=== PATIENT | female | born 1990 | race Caucasian/White ===

== ENCOUNTER 2022-01-09 11:32 | Outpatient (CLI) | payer OTHER, SELFPAY ==
[2022-01-09 15:29] LABS: SARS PCR* Negative SARS-CoV-2 (Negative)
[2022-01-11 12:21] LABS: Strep A DNA Probe* DETECTED (No Detected)
== END 2022-01-09 11:33 | disposition home or self-care (01) ==
PROVIDERS: PCP Nurse Practitioner Family; Visit Provider Nurse Practitioner Family
DX: Z20.822 Contact with and (suspected) exposure to COVID-19 (principal); R05.9 Cough, unspecified; J02.9 Acute pharyngitis, unspecified
CPT/HCPCS: 87635; 87651

== ENCOUNTER 2022-01-16 16:03 | Outpatient (CLI) | payer OTHER, SELFPAY ==
[2022-01-16 22:31] LABS: SARS PCR* Negative SARS-CoV-2 (Negative)
== END 2022-01-16 16:04 | disposition home or self-care (01) ==
LOC: KYNREF 16:03
PROVIDERS: PCP Nurse Practitioner Family; Visit Provider Nurse Practitioner Family
DX: Z20.822 Contact with and (suspected) exposure to COVID-19 (principal); R05.9 Cough, unspecified
CPT/HCPCS: 87635

== ENCOUNTER 2022-01-23 10:20 | Outpatient (CLI) | payer OTHER, SELFPAY ==
--- OUTSIDE RECORDS SUMMARY | 2022-01-23 11:04 | XMS_ITS | Encounter Summary ---
:1990 Author Organization [facility] Address [address] [place] [address] Care Team Providers Name Role Phone Elsewhere, Pcp Primary Care Provider Unavailable Encounter Details Date Type Department Care Team Description 12/05/2021 Hospital Encounter Department of Laboratory Twyla Kinney Menorrhagia Medicine in Jr. Gallagher M.D. [place] [address] [phone] (Wo rk) Social History Tobacco Use Types Packs/Day Years Used Date Smoking Tobacco: Every Day Cigarettes 0.5 Smokeless Tobacco: Never Alcohol Use Standard Drinks/Week Comments Not Currently 0 (1 standard drink = 0.6 oz pure alcoho l) Alcohol Habits Answer Date Recorded How often do you have a drink containing alcohol? Monthly or less 10/08/2019 How many drinks containing alcohol do you have on a 1 or 2 10/08/2019 typical day when you are drinking? How often do you have six or more drinks on one Never 10/08/2019 occasion? Social Isolation Answer Date Recorded In a typical week, how many times do you talk on Three times a week 10/08/2019 the phone with family, friends, or neighbors? How often do you get together with friends or Once a week 10/08/2019 relatives? How often do you attend moravian or zoroastrian 1 to 4 times per year 10/08/2019 services? Do you belong to any clubs or organizations such No 10/08/2019 as moravian groups, unions, fraternal or athletic groups, or school groups? How often do you attend meetings of the clubs or Never 10/08/2019 organizations you belong to? Are you now , , , Never 10/08/2019 , never or living with a partner? Physical Activity Answer Date Recorded On average, how many days per week do you engage in moderate to 6 days 10/08/2019 strenuous exercise (like walking fast, running, jogging, dancing, swimming, biking, or other activities that cause a light or heavy sweat)? On average, how many minutes do you engage in exercise at th is 100 min 10/08/2019 level? Stress Answer Date Recorded Do you feel stress - tense, restless, nervous, or To some ex tent 10/08/2019 anxious, or unable to sleep at night because your mind is troubled all the time - these days? Financial Resource Strain Answer Date Recorded How hard is it for you to pay for the very basics like Somew hat hard 10/08/2019 food, housing, medical care, and heating? Intimate Partner Violence Answer Date Recorded Within the last year, have you been afraid of your partner o r No 10/08/2019 ex-partner? Within the last year, have you been humiliated or emotionall y No 10/08/2019 abused in other ways by your partner or ex-partner? Within the last year, have you been kicked, hit, slapped, or No 10/08/2019 otherwise physically hurt by your partner or ex-partner? Within the last year, have you been raped or forced to have any No 10/08/2019 kind of sexual activity by your partner or ex-partner? Food Insecurity Answer Date Recorded Within the past 12 months, you worried that your food Someti mes true 10/08/2019 would run out before you got money to buy more. Within the past 12 months, the food you bought just Sometime s true 10/08/2019 didn't last and you didn't have money to get more. Transportation Needs Answer Date Recorded In the past 12 months, has lack of transportation kept you f rom Yes 10/08/2019 medical appointments or from getting medications? In the past 12 months, has lack of transportation kept you f rom Yes 10/08/2019 meetings, work, or getting things needed for daily living? Education Answer Date Recorded What is the highest level of school you have completed or 12 th grade 10/08/2019 the highest degree you have received? Sex Assigned at Date Recorded Not on file documented as of this encounter Medications at Time of Discharge Medication Sig Dispensed Refills Start Date End Date albuterol (ACCUNEB) 2.5 mg /3 Inhale 2.5 mg. 0 mL nebulizer solution albuterol inhaler Inhale 2 puffs. 0 08/02/2009 amphetamine-dextroamphetamine Take 25 mg by 0 (ADDERALL XR) 25 mg 24 hr mouth daily. capsule EPINEPHrine 0.3 mg/0.3 mL Inject 0.3 mg 0 019 injection syringe intramuscularly. famotidine (PEPCID) 20 mg Take 20 mg by 0 020 tablet mouth. ipratropium-albuteroL Inhale 3 mL. 0 04/03/2019 (DUONEB) 0.5-2.5 mg/3 mL nebulizer solution iron,carbonyl-vitamin C Take 1 tablet (65 100 tablet 3 11/29 (VITRON-C) 65 mg iron- 125 mg mg of iron total) DR tablet by mouth every other day. Do not crush or chew. LORazepam (ATIVAN) 0.5 mg Take 0.5 mg by 0 2019 tablet mouth. medroxyPROGESTERone (PROVERA) Take 1 tablet (10 14 tablet 11 11/08/2021 10 mg tabletIndications: mg total) by Menorrhagia mouth daily. Expect a period within 1 week of stopping medication. multivitamin capsule Take 1 tablet by 0 2 mouth daily. norethindrone-ethinyl Take 1 tablet by 84 tablet 4 11/30/19 22 estradiol-iron (Loestrin Fe mouth daily. 04/28, 28-Day,) 1 mg-20 mcg (21)/75 mg (7) per tablet oxyCODONE-acetaminophen Take 1 tablet by 0 2020 (PERCOCET) 5-325 mg per mouth. tablet polyethylene glycol (MIRALAX) Take 17 g by 0 10/09 17 gram/dose oral powder mouth. documented as of this encounter Miscellaneous Notes Result Encounter Note - Simón Kinney Jr., M.D. - 12/06/2021 9:52 AM CDT Jeanette, have you started the control pills and how is your bleeding? documented in this encounter Plan of Treatment Not on filedocumented as of this encounter Procedures Procedure Name Priority Date/Time Associated Diagnosis Comme nts CBC WITHOUT Routine 12/05/2021 4:35 PM Menorrhagia Results f or this DIFFERENTIAL, B CDT procedure ar e in the results section. documented in this encounter Results (ABNORMAL) CBC without Differential (12/05/2021 4:35 PM CDT) [facility] gist Method Time Signature Hemoglobin 9.7 (L) 11.6 - 12/05/2021 FB60 15.0 g/dL 4:41 PM CDT Hematocrit 31.3 (L) 35.5 - 12/05/2021 FB60 44.9 % 4:41 PM CDT Erythrocytes 3.48 (L) 3.92 - 12/05/2021 FB60 5.13 4:41 PM CDT x10(12)/L MCV 89.9 78.2 - 12/05/2021 FB60 97.9 fL 4:41 PM CDT RBC Distrib Width 14.6 12.2 - 12/05/2021 FB60 16.1 % 4:41 PM CDT Platelet Count 268 157 - 371 12/05/2021 FB60 x10(9)/L 4:41 PM CDT Leukocytes 14.2 (H) 3.4 - 9.6 12/05/2021 FB60 x10(9)/L 4:41 PM CDT Specimen Anatomical Collection Method Collection Time Receive d Time (Source) Location / / Volume Laterality Blood (Blood, 12/05/2021 4:35 PM 12/06/19 4:35 Venous) CDT PM CDT Simón Kinney Jr., M.D. LAB BLOOD ADD-ON Performing Organization Address City/State/ZIP Code Phon e Number [facility] [address] [place] [address] [facility] [place] [address] System in [address] documented in this encounter Visit Diagnoses Diagnosis Menorrhagia documented in this encounter Care Teams Utility Appraiser Relationship Specialty Start Date End Date Elsewhere, Pcp PCP - General Internal Medicine 03/17/21 documented as of this encounter
--- OUTSIDE RECORDS SUMMARY | 2022-01-23 11:04 | XMS_ITS | Clinical Summary ---
:1990 Author Organization [facility] Address [address] [place] [address] Care Team Providers Name Role Phone Elsewhere, Pcp Primary Care Provider Unavailable Source Comments Patient records contain information from all sites at [facility]. For routine questions regarding patient records, call [phone] during business hours, M-F 8:00 AM - 5:00 PM Central Time. Record requests for emergency care only can be directed to [phone] at any time.[facility] Allergies Active Allergy Reactions Severity Noted Date Comments Bee Venom Protein (Honey Other (see Medium 04/11/2021 Bee) comments) Food Extracts Rash 04/25/2006 mangos and dasha hews Sertraline Other (see 05/04/2014 comments) Spironolactone Other (see Medium 03/03/2020 Patient felt weak, comments) passed out and was [facility] Medications Medication Sig Dispensed Refills Start Date End Date Status multivitamin capsule Take 1 tablet 0 12/06/2011 Active by mouth daily. albuterol (ACCUNEB) 2.5 Inhale 2.5 mg. 0 06/26/2019 Active mg /3 mL nebulizer solution albuterol inhaler Inhale 2 0 08/02/2009 A ctive puffs. ipratropium-albuteroL Inhale 3 mL. 0 04/03/2019 Active (DUONEB) 0.5-2.5 mg/3 mL nebulizer solution amphetamine-dextroampheta Take 25 mg by 0 10/06/2019 Active mine (ADDERALL XR) 25 mg mouth daily. 24 hr capsule EPINEPHrine 0.3 mg/0.3 mL Inject 0.3 mg 0 11/06/2018 Active injection syringe intramuscularl y. famotidine (PEPCID) 20 mg Take 20 mg by 0 07/16/2019 Active tablet mouth. polyethylene glycol Take 17 g by 0 11/06/2018 Active (MIRALAX) 17 gram/dose mouth. oral powder LORazepam (ATIVAN) 0.5 mg Take 0.5 mg by 0 0 Active tablet mouth. oxyCODONE-acetaminophen Take 1 tablet 0 03/08/2021 Active (PERCOCET) 5-325 mg per by mouth. tablet medroxyPROGESTERone Take 1 tablet 14 tablet 11 11/08/2021 Active (PROVERA) 10 mg (10 mg total) tabletIndications: by mouth Menorrhagia daily. Expect a period within 1 week of stopping medication. norethindrone-ethinyl Take 1 tablet 84 tablet 4 11/29/2021 Active estradiol-iron (Loestrin by mouth Fe 04/28, 28-Day,) 1 mg-20 daily. mcg (21)/75 mg (7) per tablet iron,carbonyl-vitamin C Take 1 tablet 100 tablet 3 11/29/2021 Active (VITRON-C) 65 mg iron- (65 mg of iron [address] tablet total) by mouth every other day. Do not crush or chew. Active Problems Problem Noted Date Menorrhagia 11/08/2021 Overview: She has completed a round of Provera and has bled excessively. CBC and ferritin are pending. At this time, will start her on OCPs. Discussed the importance of quitting smoking since she is starting on O CPs. She will follow up in 1 month for a recheck. If she continues to have significant bleeding, would consider D&C at that point. If her bleeding has not improved by Sunday, she would let me know. 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 12/05/2021 Hospital Encounter Laboratory Medicine Simón Kinney Jr., M.D. 12/05/2021 Orders Only Obstetrics and Simón Kinney Gynecology Soledad Ferreira M.D. (Primary Dx) 11/29/2021 Hospital Encounter Laboratory Medicine Simón Kinney Jr., M.D. 11/29/2021 Silent Schedule Salvador and Simón Kinney Jr., M.D. 11/29/2021 Office Visit Obstetrics Simón Dickson Jr., M.D. 11/29/2021 Orders Only Obstetrics and Simón Kinney Jr., M.D. 11/08/2021 Office Visit Obstetrics and Simón Kinney Jr., M.D. from Last 3 Months Immunizations Name Administration Dates Next Due 4vHPV (discontinued) 08/09/2012, 12/12/2007 Tdap 08/09/2012 Social History Tobacco Use Types Packs/Day Years Used Date Smoking Tobacco: Every Day Cigarettes 0.5 Smokeless Tobacco: Never Tobacco Cessation: Ready to Quit: No; Co unseling Given: Yes Alcohol Use Standard Drinks/Week Comments Not Currently [...] 10/08/2019 relatives? How often do you attend holiness or yarsani 1 to 4 times per year 10/08/2019 services? 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 Respiratory Rate 16 11/29/2021 8:45 AM CDT Oxygen Saturation 97% 03/17/2021 7:15 PM BINDERY MACHINE SETTER Inhaled Oxygen Concentration - - Weight 118 kg (259 lb 0.7 oz) 11/29/2021 8:45 AM CDT Height 172.5 cm (5' 7.91) 12/06/2011 2:28 PM CDT Body Mass Index 39.49 12/06/2011 2:28 PM CDT Plan of Treatment Health Maintenance Due Date Last Done Comments Cervical Cancer Screening 1990 HIV Screening 1990 Hepatitis B Vaccines (1 of 3 - 1990 3-dose series) Hepatitis C Screening 1990 COVID-19 Vaccine (#1) 03/11/1989 Pneumococcal vaccine (0-64 years) 1994 (1 - PCV) Asthma Action Plan 10/15/2019 Asthma Control Test Questionnaire 10/15/2019 Depression Screening (Annual 04/09/2021 PHQ-2) Influenza Vaccine (#1) 2022 03/05/2007, 03/05/2007, 05/31/2006, Additional history exists DTaP,Tdap,and Td Vaccines (2 - Td 08/09/2022 08/09/2012 or Tdap) Tobacco Cessation counseling 11/29/2022 11/29/2021 Procedures Procedure Name Priority Date/Time Associated Comments Diagnosis CBC WITHOUT Routine 12/05/2021 4:35 Menorrhagia Results for DIFFERENTIAL, B PM CDT this procedu re are in the results section. FERRITIN, S Routine 11/29/2021 9:54 Menorrhagia Results for AM CDT this procedure are in the results section. CBC WITHOUT Routine 11/29/2021 9:54 Menorrhagia Results for DIFFERENTIAL, B AM CDT this procedu re are in the results section. US PELVIS RAD - Routine 11/29/2021 9:33 Menorrhagia Results for TRANSVAGINAL (most inpatients AM CDT this proced ure and all are in the outpatients) results section. from Last 3 Months Results (ABNORMAL) CBC without Differential (12/05/2021 4:35 PM CDT)Only the most recent of2 resultswithin the time period is included. Patholo gist Method Time Signature Hemoglobin 9.7 (L) [...] Laterality Blood (Blood, 12/05/2021 4:35 PM 12/06/19 22 4:35 Venous) CDT PM CDT Simón Kinney Jr., M.D. LAB BLOOD ADD-ON Performing Organization Address City/State/ZIP Code Phon e Number [facility]- [address] [place] [address] [facility] [address] [place] [address] System in [address] Ferritin (11/29/2021 9:54 AM CDT) P athologist Signature Ferritin, S 6 6 - 175 11/29/2021 [place] mcg/L 1:43 PM CDT Comment: Biotin has been identified by the rosy kendrick as a potential interfering substance. Higher concentrations of biotin may be found in multivitamins, valencia ir/nail supplements, and workout supplements. If the result d oes not match clinical observations, repeat testing af ter patient refrains from the use of supplements for at least 12 hours. Specimen Anatomical Collection Method Collection Time Receive d Time (Source) Location / / Volume Laterality Blood (Blood, 11/29/2021 9:54 AM 11/30/19 22 1:17 Venous) CDT PM CDT Simón Kinney Jr., M.D. LAB BLOOD ADD-ON Performing Organization Address City/State/ZIP Code Phon e Number [facility]- [address] [place] [address] [place] [address] System in [place] [address] US Pelvis Transvaginal (11/29/2021 9:33 AM CDT) Anatomical Region Laterality Modality Pelvis, Ultrasound RST LOS, Ultrasound ARZ LOS, Ultrasound F LA N/A Ultrasound LOS Specimen (Source) Anatomical Location Collection Method / Collectio n Time Received Time / Laterality Volume Narrative 11/29/2021 9:33 AM CDT Transvaginal ultrasound done to better visualize pelvic organs. Uterus 9.2 x 5.8 x 5.3 cm. ??Endometrium measures approximately 10-11 mm. ?? It appears to be homogeneous with some b lood flow consistent with current menstruation or possible polyp. ??Right ovary is visualized 1.7 x 1.7 x 1.4 cm. ??Left ovary not clearly seen. ??Xu metrium is normal in homogeneous. Simón Kinney Jr., M.D. IMG US PROCEDURES from Last 3 Months Insurance Payer Benefit Plan / Subscriber ID Effective Phone Address T ype Group Dates [place] [employer] [id number] 2018-Prese [address] Medicaid HMO [facility] [place] [facility] [address] [place] [address] Care Teams Lock And Dam Repairer Relationship Specialty Start Date End Date Elsewhere, Pcp PCP - General Internal Medicine 03/17/21
--- OUTSIDE RECORDS SUMMARY | 2022-01-23 11:04 | XMS_ITS | Encounter Summary ---
:1990 Author Organization [facility] Address [address] [place] [address] Care Team Providers Name Role Phone Elsewhere, Pcp Primary Care Provider Unavailable Encounter Details Date Type Department Care Team Description 12/06/2021 Clinical Communication Department of Ruchi Syed, Obstetrics and R.N. Gynecology in [address] [phone] Social History Tobacco Use Types Packs/Day Years [...] 10/08/2019 relatives? How often do you attend buddhist or hoahaoism 1 to 4 times per year 10/08/2019 services? Do you belong to any clubs or organizations such No 10/08/2019 as buddhist groups, unions, fraternal or athletic groups, or [...] on file documented as of this encounter Miscellaneous Notes Telephone Encounter - Ruchi Syed R.N. - 12/06/2021 2:40 PM CDT Patient states she will start the OCP. Patient would like a home blood pressure monitor ordered. PerDr. Kinney, patient may have iron infusion. Patient agrees to this plan and would like to proceed with iron infusion. At this time, patient does not want a D&C. Patient encouraged to stop smoking. She will make follow up appointment in one month. She was encouraged to call with any questions or concerns. Iron infusion orders signed by Dr. Kinney and faxed to [facility]. documented in this encounter Plan of Treatment Not on filedocumented as of this encounter Visit Diagnoses Diagnosis Menorrhagia - Primary documented in this encounter Care Teams Manager Analytical Relationship Specialty Start Date End Date Elsewhere, Pcp PCP - General Internal Medicine 03/17/21 documented as of this encounter
--- OUTSIDE RECORDS SUMMARY | 2022-01-23 11:05 | XMS_ITS | Encounter Summary ---
:1990 Author Organization [facility] Address [address] [place] [address] Care Team Providers Name Role Phone Elsewhere, Pcp Primary Care Provider Unavailable Reason for Visit Reason Comments Hypoglycemia Encounter Details Date Type Department Care Team Description 03/17/2021 Emergency [facility] Diego Manzo Ulysses poglycemia (Primary Emergency Department D, M.D. Dx) [address] [place] [address] [address] [place] [id number] (Wo rk) Social History Tobacco Use Types [...] 10/08/2019 relatives? How often do you attend episcopalian or restorationist 1 to 4 times per year 10/08/2019 services? Do you belong to any clubs or organizations such No 10/08/2019 as episcopalian groups, unions, fraternal or athletic groups, or [...] on file documented as of this encounter Last Filed Vital Signs Vital Sign Reading Time Taken Comments Blood Pressure 138/90 03/17/2021 7:15 PM WOOD GRAINER Pulse 88 03/17/2021 7:15 PM WOOD GRAINER Temperature 36.9 ??C (98.4 ??F) 03/17/2021 4:00 PM WOOD GRAINER Respiratory Rate 16 03/17/2021 7:15 PM WOOD GRAINER Oxygen Saturation 97% 03/17/2021 7:15 PM WOOD GRAINER Inhaled Oxygen Concentration - - Weight 118 kg (260 lb 2.3 oz) 03/17/2021 12:44 PM WOOD GRAINER Height - - Body Mass Index 39.66 12/06/2011 2:28 PM CDT documented in this encounter Discharge Instructions Discharge InstructionsDiego Manzo M.D. - 03/17/2021 7:40 PM WOOD GRAINER Patient was recommended for current symptoms to avoid taking excess sugar, recommended to reassessedwith recheck of her blood sugar on a serum a blood sample to determine blood sugar, potential treatment, and testing. GRAINER AttachmentsThe following attachments cannot be sent through Care Everywhere. Hypoglycemia (Chinese)documented in this encounter Medications at Time of Discharge Medication Sig Dispensed Refills Start Date End Date amphetamine-dextroamphetamin Take 25 mg by 0 09/08 e (ADDERALL XR) 25 mg 24 hr mouth daily. capsule albuterol (ACCUNEB) 2.5 mg Inhale 2.5 mg. 0 06/25 /3 mL nebulizer solution albuterol inhaler Inhale 2 puffs. 0 08/02/2009 EPINEPHrine 0.3 mg/0.3 mL Inject 0.3 mg 0 019 injection syringe intramuscularly. famotidine (PEPCID) 20 mg Take 20 mg by 0 020 tablet mouth. ipratropium-albuteroL Inhale 3 mL. 0 04/03/2019 (DUONEB) 0.5-2.5 mg/3 mL nebulizer solution LORazepam (ATIVAN) 0.5 mg Take 0.5 mg by 0 2019 tablet mouth. multivitamin capsule Take 1 tablet by 0 2 mouth daily. oxyCODONE-acetaminophen Take 1 tablet by 0 2020 (PERCOCET) 5-325 mg per mouth. tablet polyethylene glycol Take 17 g by 0 11/06/2018 (MIRALAX) 17 gram/dose oral mouth. powder EPINEPHrine 0.3 mg/0.3 mL Inject 0.3 mg 0 021 11/08/2021 injection syringe intramuscularly. famotidine (PEPCID) 20 mg 0 07/16/2019 11/08/2021 tablet HYDROcodone-acetaminophen 0 07/29/2019 11/08/2021 (NORCO) 5-325 mg per tablet medroxyPROGESTERone Take 1 tablet 14 tablet 3 10/15/2019 (PROVERA) 10 mg tablet (10 mg total) by mouth daily. You should have period within 2 weeks of finishing. Start control with 2nd day of period. norethindrone-ethinyl Take 1 tablet by 84 tablet 4 10/15/19 20 11/08/2021 estradiol-iron (Loestrin Fe mouth daily. 04/28, 28-Day,) 1 mg-20 mcg (21)/75 mg (7) per tablet spironolactone (ALDACTONE) Take 1 tablet 180 tablet 3 201911/08/2021 50 mg tablet (50 mg total) by mouth 2 (two) times a day. documented as of this encounter ED Notes Diego Manzo M.D. - 03/17/2021 4:30 PM CST SUBJECTIVE CHIEF COMPLAINT/REASON FOR VISIT Hypoglycemia HISTORY OF PRESENT ILLNESS Jeanette Marcelo is a 30 y.o. female presents to the emergency department for evaluation of persistent hypoglycemia. Past medical history significant for ulcerative colitis. Patient believes theonset of her symptoms may have started approximately 1 year ago, but significantly worsening over the past several weeks. Patient describes feeling fatigued, tired, question depression. Within the pastweek she had a random blood sugar check from 1 of her mother's glue, others, had low blood sugar, was seen in the outpatient clinic. Patient diagnosed with hypoglycemia without history of diabetes, wasstarted on outpatient workup for insulinoma versus alternative cause. Patient was given a prescription for glucose tablets to using, reports yesterday evening had a difficult time maintaining a blood sugar above 70 all night long and therefore did not sleep well. Scheduled for outpatient Endocrinologyon the through , given worsening symptoms was advised to seek emergent evaluation. Patient had CT abdomen schedule for today, given her symptoms presenting to the emergency department for alternative workup and management. Denies any fevers or chills, reports diarrhea but history of Crohn's disease. 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 HENT: Negative for sore throat. Eyes: Negative for visual disturbance. Respiratory: Negative for cough. Cardiovascular: Negative for leg swelling. Gastrointestinal: Negative for vomiting. Endocrine: Positive for low blood sugars. Genitourinary: Negative for dysuria. Skin: Negative for rash. Neurological: Positive for tremors. Negative for headaches. Hematological: Does not bruise/bleed easily. ALLERGIES/MEDICATIONS: Reviewed in medical record. MEDICAL HISTORY History reviewed. No pertinent past medical history. Patient Active Problem List Diagnosis Date Noted ??? Ulcerative Colitis Unspecified Without Complications ([facility]) 10/15/2019 ??? Polycystic Ovary Syndrome 10/15/2019 ??? 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 Administrative Purpose Exam 06/05/2014 ??? Asthma ([facility]) 04/25/2006 SURGICAL HISTORY History reviewed. No pertinent surgical history. FAMILY HISTORY Reviewed in chart SOCIAL HISTORY Social History Socioeconomic History ??? Marital status: Single Spouse name: None ??? Number of children: None ??? Years of education: None ??? Highest education level: 12th grade Occupational History ??? None Tobacco Use ??? Smoking status: Current Every Day Smoker Packs/day: 0.50 Types: Cigarettes ??? Smokeless tobacco: Never Used Vaping Use ??? Vaping Use: never used Substance and Sexual Activity ??? Alcohol use: Not Currently ??? Drug use: Never ??? Sexual activity: Defer Other Topics Concern ??? None Social History Narrative ??? None Social Determinants of Health Financial Resource Strain: Not on file Food Insecurity: Not on file Transportation Needs: Not on file Physical Activity: Not on file Stress: Not on file Social Connections: Not on file Intimate Partner Violence: Not on file Housing Stability: Not on file Social History Substance and Sexual Activity Alcohol Use Not Currently Social History Substance and Sexual Activity Drug Use Never OBJECTIVE INITIAL VITAL SIGNS Initial Vitals Temperature Pulse Rate Heart Rate Resp Rate Blood Pressure SpO2 03/17/21 1253 03/17/21 1253 -- 03/17/21 1253 03/17/21 1253 03/17/21 1253 36.8 ??C 93 16 (!) 168/90 99 % Pain Score 03/17/21 1252 6 PHYSICAL EXAMINATION Constitutional: She appears not lethargic. No distress. HENT: Nose: No nasal discharge. Mouth/Throat: Mucous membranes are moist. Eyes: Conjunctivae are normal. Right eye exhibits no discharge. Left eye exhibits no discharge. Cardiovascular: Edema: no edema noted Pulmonary/Chest: Effort normal. Abdominal: exhibits no distension. Musculoskeletal: General: No deformity. Normal range of motion. Neurological: Alert and oriented to person, place, and time. Skin: No rash noted. She is not diaphoretic. No cyanosis. No jaundice. Psychiatric: She has a normal mood and affect. ED COURSE ED Course as of 03/17/212115 [facility] Mar 17, [id number] CT scan negative for evidence of acute islet cell tumor. Patient denies any recurrent symptoms of hypoglycemia. We have paged endocrinology, disposition pending consultation. 1930 Discussed the case with the on-call electrical and instrument technician 1936 Recommendation should the patient return to the emergency department is for repeat venous bloodglucose, separate from a point of care test. If patient has blood sugar less than 55 recommendation for: If serum glucose is low (=55 mg/dL), other tests from the same blood sample should be done, including: ??C-peptide ??Insulin ??proinsulin ??Beta-hydroxybutyrate ??Serum screen for hypoglycemic agents (sulfonylurea and meglitinides) Final Diagnoses: as of 03/17/212115 Hypoglycemia INTERVENTIONS Medications NaCl 0.9% infusion (0 mL/hr intravenous Stopped 03/17/211940) iohexoL 300 mg iodine/mL solution 1-200 mL (OMNIPAQUE) (200 mL intravenous Given 03/17/211832) sodium chloride (PF) 0.9 % injection 1-100 mL (50 mL intravenous Given 03/17/211832) iohexoL 300 mg iodine/mL solution 1-200 mL (OMNIPAQUE) (140 mL intravenous Given 03/17/211850) sodium chloride (PF) 0.9 % injection 1-100 mL (50 mL intravenous Given 03/17/211849) LABS Labs Reviewed CBC WITH DIFFERENTIAL, B - Abnormal Result Value Hemoglobin 14.3 Hematocrit 43.7 Erythrocytes 4.62 MCV 94.6 RBC Distrib Width 12.7 Platelet Count 206 Leukocytes 9.6 Neutrophils 6.82 (*) Lymphocytes 1.81 Monocytes 0.80 Eosinophils 0.16 Basophils 0.04 BASIC METABOLIC PANEL, S/P Potassium, P 4.2 Sodium, P 140 Chloride, P 104 Bicarbonate, P 27 Anion Gap, P 9 BUN (Blood Urea Nitrogen), P 8 Creatinine, P 0.61 eGFR-Black/ >90 eGFR Non-Black/ >90 Calcium, Total, P 9.3 Glucose, P 91 LACTATE, B/P Lactate, P 1.8 HEMOGLOBIN A1C, B Hemoglobin A1c, B 5.4 TEST, U Test, Urine Negative GLUCOSE POCT, B Glucose, POCT, B Collected GLUCOSE POCT, B Glucose, POCT, B 97 Site Venstick GLUCOSE POCT, B Glucose, POCT, B Collected GLUCOSE POCT, B Glucose, POCT, B Collected GLUCOSE POCT, B Glucose, POCT, B Collected GLUCOSE POCT, B Glucose, POCT, B 85 Site Capillary GLUCOSE POCT, B Glucose, POCT, B 91 Site Capillary GLUCOSE POCT, B Glucose, POCT, B 83 Site Capillary GLUCOSE POCT, B GLUCOSE POCT, B GLUCOSE POCT, B GLUCOSE POCT, B GLUCOSE POCT, B ECG RADIOLOGY CT Abdomen Pelvis with IV Contrast Final Result 1. No focal pancreatic mass to suggest etiology for patient's recurrent hypoglycemia. 2. Cystic lesions within both ovaries may represent multiple follicles. Consider pelvic ultrasound for further evaluation, if clinically indicated. ASSESSMENT / PLAN ASSESSMENT/PLAN IMPRESSION AND PLAN Jeanette Marcelo is a 30 y.o. female presents with concern of persistent hypoglycemia. On arrival patient had initial blood sugar of 91. We have not seen any evidence of hypoglycemia at this time, she has been taking oral glucose tablets since arrival to the waiting room. Studies have been obtained, no acute abnormalities, lactate is normal, A1c 5.4. Will recheck blood sugar in the emergency department every 1 hour. We will obtain the CT abdomen andpelvis as was ordered in the outpatient setting. Consideration for endocrinology consultation if thepatient has persistent hypoglycemic events while in the emergency department for definitive recommend ation and disposition planning. Please follow ED course. Patient otherwise well. Discharge home. DIFFERENTIAL DIAGNOSIS Anemia generalized weakness, tremor, hypoglycemia, diabetes, medication complication, nondiabetic hypoglycemia I reviewed previous medical records including lab results, radiology images/report and documentationfrom previous visits. I personally reviewed the lab result(s) and my interpretation is normal. I reviewed the radiology report(s). The Radiology exam interpretation(s) is/are normal. DIAGNOSIS Final diagnoses: [E16.2] Hypoglycemia ED DISCHARGE MEDS ED Prescriptions None DISPOSITION Home or Self Jail or Self Care Diego Manzo M.D. 03/17/212116 GRAINER Marina Sterling R.N. - 03/17/2021 1:55 PM CST Patient came to triage desk stating that she was going outside to get some glucose tablets from her neighbor because we were just letting her sit out here with a blood sugar of 51. Patient was offered a blood sugar recheck (previous check 1hr prior was 91), however patient walked out of ED while holding a soda. Marina Sterling RKentonN. 03/17/21 1407 GRAINER Estee Duncan R.N. - 03/17/2021 12:52 PM CST Here for new hypoglycemia for past week, this am was 52, now states up to 101 Estee Duncan R.N. 03/17/21 1253 GRAINER documented in this encounter Plan of Treatment Not on filedocumented as of this encounter Procedures Procedure Name Priority Date/Time Associated Comments Diagnosis GLUCOSE POCT, B Routine 03/17/2021 7:21 Results f or this PM WOOD GRAINER procedure are i n the results section. GLUCOSE POCT, B Timed 03/17/2021 7:21 Results f or this PM WOOD GRAINER procedure are i n the results section. CT ABDOMEN PELVIS RAD - Semiurgent 03/17/2021 6:57 Res ults for this WITH IV CONTRAST (Fast; most ED PM WOOD GRAINER procedure are in patients; some the results inpatients) section. GLUCOSE POCT, B Routine 03/17/2021 6:06 Results f or this PM WOOD GRAINER procedure are i n the results section. GLUCOSE POCT, B Timed 03/17/2021 6:06 Results f or this PM WOOD GRAINER procedure are i n the results section. GLUCOSE POCT, B Timed 03/17/2021 5:19 Results f or this PM WOOD GRAINER procedure are i n the results section. GLUCOSE POCT, B Routine 03/17/2021 5:18 Results f or this PM WOOD GRAINER procedure are i n the results section. TEST, U STAT 03/17/2021 4:32 Results for this PM WOOD GRAINER procedure are i n the results section. GLUCOSE POCT, B STAT 03/17/2021 4:10 Results f or this PM WOOD GRAINER procedure are i n the results section. GLUCOSE POCT, B Routine 03/17/2021 4:04 Results f or this PM WOOD GRAINER procedure are i n the results section. CBC WITH STAT 03/17/2021 1:16 Results for this DIFFERENTIAL, B PM WOOD GRAINER procedure ar e in the results section. LACTATE, B/P STAT 03/17/2021 1:16 Results for this PM WOOD GRAINER procedure are i n the results section. HEMOGLOBIN A1C, B STAT 03/17/2021 1:16 Results for this PM WOOD GRAINER procedure are i n the results section. BASIC METABOLIC STAT 03/17/2021 1:16 Results f or this PANEL, S/P PM WOOD GRAINER procedure are i n the results section. documented in this encounter Results Glucose, POCT (03/17/2021 7:21 PM WOOD GRAINER) Analysis Performed At Patho logist Time Signature Glucose, POCT, 83 70 - 140 03/17/2021 [facility] B mg/dL 7:24 PM WOOD GRAINER Site Capillary 03/17/2021 PCL[facility] 7:24 PM WOOD GRAINER Specimen Anatomical Collection Method Collection Time Receive d Time (Source) Location / / Volume Laterality Blood 03/17/2021 7:21 PM 7:25 WOOD GRAINER PM WOOD GRAINER Unknown Provider LAB POCT ORDERABLES-MANUAL Performing Organization Address City/State/ZIP Code Phon e Number POC [facility] [address] [place] [address] [facility] [place] [address] [facility] [address] [facility] Glucose, POCT (03/17/2021 7:21 PM WOOD GRAINER) Analysis Performed At Patho logist Time Signature Glucose, POCT, Collected DEFAULT 03/17/2021 SML[facility] B 7:21 PM WOOD GRAINER Specimen Anatomical Collection Method Collection Time Receive d Time (Source) Location / / Volume Laterality Blood (Blood, 03/17/2021 7:21 PM 03/17/20 7:21 Capillary) WOOD GRAINER PM WOOD GRAINER Diego Manzo M.D. LAB POCT ORDERABLES-MANUAL Performing Organization Address [facility]/ZIP [facility] Phon e Number [facility] - [address] [place], [place] [address] [facility] [place] [address] [facility] [address] Abdomen Pelvis with IV Contrast (03/17/2021 6:57 PM WOOD GRAINER) Anatomical Region Laterality Modality Abdomen, Pelvis, Abdominal RST LOS, N/A Comp uted Tomography, Computed Abdominal ARZ LOS, Abdominal FLA LOS Suhas ography Specimen (Source) Anatomical Collection Method Collection Time Re ceived Time Location / / Volume Laterality 03/17/2021 6:34 PM WOOD GRAINER Impressions 03/17/2021 7:03 PM WOOD GRAINER 1. No focal pancreatic mass to suggest etiology for patient's recurrent hypoglycemia. 2. Cystic lesions within both ovaries ma y represent multiple follicles. Consider pelvic ultrasound for further evaluation , if clinically indicated. Narrative 03/17/2021 7:03 PM WOOD GRAINER EXAM: ??CT ABDOMEN PELVIS WITH IV CONTRAST COMPARISON: ??None FINDINGS: ??Of note, initial images did not include a pancreatic phase, which would be helpful for workup of potential neuroendocrine neoplasm given clinical concern for pancreatic islet cell tumor. Findings were discussed with Dr. Diego Cisneros MD (pager [phone]) and it was agreed to re-inject to perform this phase of imaging. No evidence of focal pancreatic mass. Sp ecifically, no evidence of hyperenhancing mass to suggest neuroendo crine neoplasm. The liver, gallbladder, adrenals, and ki dneys are normal. Physiologic appearance of the uterus. Nabothian cysts. Cystic l esions within both ovaries may represent multiple follicles. Normal caliber small and large bowel. Negative appendix. No abdominal lymphadenopathy or free fluid. Degenerative change of lumbar spine and right SI joint. Transitional left lumbos acral vertebra. No osseous lesions. Procedure Note Bold, Vic Johnson M.D. - 03/17/2021Format ting of this note might be different from the original. EXAM: CT ABDOMEN PELVIS WITH IV CONTRAST COMPARISON: None FINDINGS: Of note, initial images did no t include a pancreatic phase, which would be helpful for workup of potential neuroendocrine neoplasm given clinical concern for pancreatic islet cell tumor. Findings were discussed with Dr. Diego Cisneros MD (pager [phone]) and it was agreed to re-inject to perform this phase of imaging. No evidence of focal pancreatic mass. Sp ecifically, no evidence of hyperenhancing mass to suggest neuroendo crine neoplasm. The liver, gallbladder, adrenals, and ki dneys are normal. Physiologic appearance of the uterus. Nabothian cysts. Cystic l esions within both ovaries may represent multiple follicles. Normal caliber small and large bowel. Negative appendix. No abdominal lymphadenopathy or free fluid. Degenerative change of lumbar spine and right SI joint. Transitional left lumbos acral vertebra. No osseous lesions. IMPRESSION: 1. No focal pancreatic mass to suggest e tiology for patient's recurrent hypoglycemia. 2. Cystic lesions within both ovaries ma y represent multiple follicles. Consider pelvic ultrasound for further evaluation , if clinically indicated. Diego Manzo M.D. IMG CT PROCEDURES Glucose, POCT (03/17/2021 6:06 PM WOOD GRAINER) Analysis Performed At Patho logist Time Signature Glucose, POCT, 91 70 - 140 03/17/2021 PCL[facility] B mg/dL 6:17 PM WOOD GRAINER Site Capillary 03/17/2021 PCL[facility] 6:17 PM WOOD GRAINER Specimen Anatomical Collection Method Collection Time Receive d Time (Source) Location / / Volume Laterality Blood 03/17/2021 6:06 PM 6:17 WOOD GRAINER PM WOOD GRAINER Unknown Provider LAB POCT ORDERABLES-MANUAL Performing Organization Address City/State/ZIP Code Phon e Number POC [facility] [address] [place] [address] [place] [address] [facility] [address] [facility] Glucose, POCT (03/17/2021 6:06 PM WOOD GRAINER) Analysis Performed At Patho logist Time Signature Glucose, POCT, Collected DEFAULT 03/17/2021 SMLX B 6:06 PM WOOD GRAINER Specimen Anatomical Collection Method Collection Time Receive d Time (Source) Location / / Volume Laterality Blood (Blood, 03/17/2021 6:06 PM 03/17/20 6:06 Capillary) WOOD GRAINER PM WOOD GRAINER Diego Manzo M.D. LAB POCT ORDERABLES-MANUAL Performing Organization Address City/[facility] Code Phon e Number [facility] - [address] [place], [place] [address] [facility] [place] [address] [facility] [address] [facility] Glucose, POCT (03/17/2021 5:19 PM WOOD GRAINER) Analysis Performed At [facility] Signature Glucose, POCT, Collected DEFAULT 03/17/2021 SMLX B 5:19 PM WOOD GRAINER Specimen Anatomical Collection Method Collection Time Receive d Time (Source) Location / / Volume Laterality Blood (Blood, 03/17/2021 5:19 PM 03/17/20 5:19 Capillary) WOOD GRAINER PM WOOD GRAINER Diego Manzo M.D. LAB POCT ORDERABLES-MANUAL Performing Organization Address City/State/[facility] Code Phon e Number [facility] - [address] [place], [place] [address] [place] [address] [facility] [address] [facility] Glucose, POCT (03/17/2021 5:18 PM WOOD GRAINER) Analysis Performed At Patho logist Time Signature Glucose, POCT, 85 70 - 140 03/17/2021 PCL[facility] B mg/dL 5:21 PM WOOD GRAINER Site Capillary 03/17/2021 PCLX 5:21 PM WOOD GRAINER Specimen Anatomical Collection Method Collection Time Receive d Time (Source) Location / / Volume Laterality Blood 03/17/2021 5:18 PM 5:21 WOOD GRAINER PM WOOD GRAINER Unknown Provider LAB POCT ORDERABLES-MANUAL Performing Organization Address City/[facility]/ZIP Code Phon e Number POC [facility] [address] [place] [address] [facility] [place] [address] [facility] [address] [facility] Test, Qualitative, Urine (03/17/2021 4:32 PM WOOD GRAINER) athologist Signature Negative 03/17/2021 [facility] Test, Urine 5:47 PM WOOD GRAINER Specimen Anatomical Collection Method Collection Time Receive d Time (Source) Location / / Volume Laterality Urine (Urine, 03/17/2021 4:32 PM 03/17/20 5:09 Midstream) WOOD GRAINER PM WOOD GRAINER Diego Manzo M.D. LAB URINE ORDERABLES Performing Organization Address City/[facility]/ZIP Code Phon e Number [facility] - [address] [place], [place] [address] [facility] [place] [address] [facility] [address] [facility] Glucose, POCT (03/17/2021 4:10 PM WOOD GRAINER) Analysis Performed At Located Within [facility] logist Time Signature Glucose, POCT, Collected DEFAULT 03/17/2021 SMLX B 4:10 PM WOOD GRAINER Specimen Anatomical Collection Method Collection Time Receive d Time (Source) Location / / Volume Laterality Blood (Blood, 03/17/2021 4:10 PM 03/17/20 21 4:10 Capillary) WOOD GRAINER PM WOOD GRAINER Diego Manzo M.D. LAB POCT ORDERABLES-MANUAL Performing Organization Address City/[facility]/ZIP [facility] Phon e Number [facility] - [address] [place], [place] [address] [facility] [place] [address] [facility] [address] [facility] Glucose, POCT (03/17/2021 4:04 PM WOOD GRAINER) athologist Signature Glucose, POCT, 97 70 - 140 03/17/2021 PCL[facility] B mg/dL 4:13 PM WOOD GRAINER Site Venstick 03/17/2021 PCL[facility] 4:13 PM WOOD GRAINER Specimen Anatomical Collection Method Collection Time Receive d Time (Source) Location / / Volume Laterality Blood 03/17/2021 4:04 PM 4:13 WOOD GRAINER PM WOOD GRAINER Unknown Provider LAB POCT ORDERABLES-MANUAL Performing Organization Address City/[facility]/ZIP [facility] Phon e Number POC [facility] [address] [place] [address] [place] [address] [facility] [address] [facility] Hemoglobin A1c (03/17/2021 1:16 PM WOOD GRAINER) athologist [facility] Hemoglobin A1c, 5.4 4.0 - 5.6 03/17/2021 [facility] B % 1:39 PM WOOD GRAINER Specimen Anatomical Collection Method Collection Time Receive d Time (Source) Location / / Volume Laterality Blood (Blood, 03/17/2021 1:16 PM 03/17/20 1:30 Venous) WOOD GRAINER PM WOOD GRAINER Xavi Jc M.D. LAB BLOOD ADD-ON Performing Organization Address City/[facility] Phon e Number [facility] - [address] [place], [place] [address] [facility] [place] [address] [facility] [address] [facility] Lactate (03/17/2021 1:16 PM WOOD GRAINER) athologist [facility] Lactate, P 1.8 0.5 - 2.2 03/17/2021 [facility] mmol/L 1:40 PM WOOD GRAINER Specimen Anatomical Collection Method Collection Time Receive d Time (Source) Location / / Volume Laterality Blood (Blood, 03/17/2021 1:16 PM 03/17/20 1:24 Venous) WOOD GRAINER PM WOOD GRAINER Xavi Jc M.D. LAB BLOOD NON ADD-ON Performing Organization Address City/[facility] Phon e Number [facility] - [address] [place], [place] [address] [facility] [place] [address] [facility] 200 [facility] Basic Metabolic Panel (03/17/2021 1:16 PM WOOD GRAINER) athologist [facility] Potassium, P 4.2 3.6 - 5.2 03/17/2021 [facility] mmol/L 1:43 PM WOOD GRAINER Sodium, P 140 135 - 145 03/17/2021 [facility] mmol/L 1:43 PM WOOD GRAINER Chloride, P 104 98 - 107 03/17/2021 [facility] mmol/L 1:43 PM WOOD GRAINER Bicarbonate, P 27 22 - 29 03/17/2021 [facility] mmol/L 1:43 PM WOOD GRAINER Anion Gap, P 9 7 - 15 03/17/2021 [facility] 1:43 PM WOOD GRAINER BUN (Blood Urea 8 6 - 21 03/17/2021 [facility] Nitrogen), P mg/dL 1:43 PM WOOD GRAINER Creatinine 0.61 0.59 - 03/17/2021 [facility] 1.04 mg/dL 1:43 PM WOOD GRAINER eGFR-Black/Afric >90 >=60 03/17/2021 [facility] an Dominican mL/min/BSA 1:43 PM WOOD GRAINER Comment: ----ADDITIONAL INFORMATION---- Estimated GFR calculated using the 2009 CKD_EPI creatinine equation. eGFR Non-Black/ >90 >=60 mL/min/BSA 03/17/2021 1:43 PM WOOD GRAINER [facility] Comment: ----ADDITIONAL INFORMATION---- Estimated GFR calculated using the 2009 CKD_EPI creatinine equation. Calcium, Total, P 9.3 8.6 - 10.0 mg/dL 03/17/2021 1:43 PM WOOD GRAINER [facility] Glucose, P 91 70 - 140 mg/dL 03/17/2021 1:43 PM WOOD GRAINER S TMA Specimen Anatomical Collection Method Collection Time Receive d Time (Source) Location / / Volume Laterality Blood (Blood, 03/17/2021 1:16 PM 03/17/20 1:24 Venous) WOOD GRAINER PM WOOD GRAINER Xavi Jc M.D. LAB BLOOD ADD-ON Performing Organization Address City/State/ZIP Code Phon e Number [facility] - [address] [place] [address] [place] [address] [facility] [address] [facility] (ABNORMAL) CBC with Differential, Blood (03/17/2021 1:16 PM WOOD GRAINER) [facility] gist Method Time Signature Hemoglobin 14.3 11.6 - 03/17/2021 [facility] 15.0 g/dL 1:28 PM WOOD GRAINER Hematocrit 43.7 35.5 - 03/17/2021 [facility] 44.9 % 1:28 PM WOOD GRAINER Erythrocytes 4.62 3.92 - 03/17/2021 [facility] 5.13 1:28 PM WOOD GRAINER x10(12)/L MCV 94.6 78.2 - 03/17/2021 [facility] 97.9 fL 1:28 PM WOOD GRAINER RBC Distrib Width 12.7 12.2 - 03/17/2021 [facility] 16.1 % 1:28 PM WOOD GRAINER Platelet Count 206 157 - 371 03/17/2021 [facility] x10(9)/L 1:28 PM WOOD GRAINER Leukocytes 9.6 3.4 - 9.6 03/17/2021 [facility] x10(9)/L 1:28 PM WOOD GRAINER Neutrophils 6.82 (H) 1.56 - 03/17/2021 [facility] 6.45 1:28 PM WOOD GRAINER x10(9)/L Lymphocytes 1.81 0.95 - 03/17/2021 [facility] 3.07 1:28 PM WOOD GRAINER x10(9)/L Monocytes 0.80 0.26 - 03/17/2021 [facility] 0.81 1:28 PM WOOD GRAINER x10(9)/L Eosinophils 0.16 0.03 - 03/17/2021 [facility] 0.48 1:28 PM WOOD GRAINER x10(9)/L Basophils 0.04 0.01 - 03/17/2021 [facility] 0.08 1:28 PM WOOD GRAINER x10(9)/L Specimen Anatomical Collection Method Collection Time Receive d Time (Source) Location / / Volume Laterality Blood (Blood, 03/17/2021 1:16 PM 03/17/20 1:24 Venous) WOOD GRAINER PM WOOD GRAINER Xavi Jc M.D. LAB BLOOD ADD-ON Performing Organization Address City/State/ZIP Code Phon e Number [facility] - [facility] [address] [place], [place] [address] [place] [address] [facility] [address] documented in this encounter Visit Diagnoses Diagnosis Hypoglycemia - Primary documented in this encounter Administered Medications Inactive Administered Medications - up to 3 most recent administrations Medication Order MAR Action Action Date Dose Rate Site iohexoL 300 mg iodine/mL solution Given 03/17/2021 6:33 PM WOOD GRAINER 2 00 mL 1-200 mL (OMNIPAQUE) 1-200 mL, intravenous, Once in imaging, contrast, Starting on Kelli 03/17/21 at 1832, For 1 dose, Imaging Protocol Orders, Dose per Radiant Medication Guidelines iohexoL 300 mg iodine/mL solution 1-200 mL Given 03/17/2021 6:51 PM WOOD GRAINER 140 mL (OMNIPAQUE) 1-200 mL, intravenous, Once in imaging, contrast, Starting on Kelli 03/17/21 at 1849, For 1 dose NaCl 0.9% infusion New Bag 03/17/2021 4:46 PM WOOD GRAINER 100 mL/hr 100 mL/hr 100 mL/hr, intravenous, Continuous, Starting on Kelli 03/17/21 at 1615 sodium chloride (PF) 0.9 % injection 1-1 00 mL Given 03/17/2021 6:33 PM WOOD GRAINER 50 mL 1-100 mL, intravenous, Once, On Kelli 03/17/21 at 1833, For 1 dose, Imaging Protocol Orders sodium chloride (PF) 0.9 % injection 1-1 00 mL Given 03/17/2021 6:50 PM WOOD GRAINER 50 mL 1-100 mL, intravenous, Once in imaging, contrast, Starting on Kelli 03/17/21 at 1850, For 1 dose documented in this encounter Active and Recently Administered Medications Times are shown in WOOD GRAINER. Scheduled Medication Order 03/15/2021 03/16/2021 03/17/2021 sodium chloride (PF) 0.9 % injection 1-100 mL (COMPLETED) 1832 (Given - Provider: Marta Hensley R.N.) 1-100 mL, intravenous, Once, On Kelli 03/17 at 1833, For 1 dose, Imaging Protocol Orders Continuous Medication Order 03/15/2021 03/16/2021 03/17/2021 NaCl 0.9% infusion 1646 (New Bag - Provider: Conrado Salazar R.N.)1941 (Stopped - Provider: Geena Knowles R.N.) 100 mL/hr, intravenous, Continuous, Starting on Kelli 03/17/21 at 1 615 PRN Medication Order 03/15/2021 03/16/2021 03/17/2021 iohexoL 300 mg iodine/mL solution 1-200 mL (OMNIPAQUE) (COMPLETE D) 3 (Given - Provider: Marta Hensley R.N. - Comment: [id number]) 1-200 mL, intravenous, Once in imaging, contrast, Starting on Kelli 03/17/21 at 1832, For 1 dose, Imaging Protocol Orders, Dose per Radiant Medication Guidelines iohexoL 300 mg iodine/mL solution 1-200 mL (OMNIPAQUE) (COMPLETE D) 185 (Given - Provider: Radha Farmer R.N. - Comment: Lot [id number]) 1-200 mL, intravenous, Once in imaging, contrast, Starting on Kelli 03/17/21 at 1849, For 1 dose sodium chloride (PF) 0.9 % injection 1-100 mL (COMPLETED) 1850 (Given - Provider: Radha Farmer, RNona) 1-100 mL, intravenous, Once in imaging, contrast, Starting on Kelli 03/17/21 at 1850, For 1 dose documented in this encounter Care Teams Digital Forensics Examiner Relationship Specialty Start Date End Date Elsewhere, Pcp PCP - General Internal Medicine 03/17/21 documented as of this encounter
--- OUTSIDE RECORDS SUMMARY | 2022-01-23 11:05 | XMS_ITS | Encounter Summary ---
:1990 Author Organization [facility] Address [address] [place] [address] Care Team Providers Name Role Phone Unavailable Primary Care Provider Unavailable Reason for Visit Reason Comments COVID Nurse Line Encounter Details Date Type Department Care Team Description 07/14/2019 Clinical Communication Central Appointment Line, Nabor DANIEL Nurse Line Office in [facility] [address] [place] [address] Social History Tobacco Use Types Packs/Day Years Used Date Smoking Tobacco: Every Day Alcohol Habits Answer Date Recorded How often [...] 10/08/2019 relatives? How often do you attend advent or mandaen 1 to 4 times per year 10/08/2019 services? Do you belong to any clubs or organizations such No 10/08/2019 as advent groups, unions, fraternal or athletic groups, or [...] or getting things needed for daily living? Sex Assigned at Date Recorded Not on file documented as of this encounter Miscellaneous Notes Telephone Encounter - Delmi Bansal RKentonN. - 07/14/2019 10:21 AM CDT COVID-19 Nurse Line Screening ASSESSMENT COVID 19 Screening Have you had close contact with a person who has a LABORATORY CONFIRMED case of COVID-19?: Yes - Continue screening. Is this close contact a household contact?: No- Continue screening In the last 48 hours have you had any of the following symptoms?: Fever, New cough, New shortness ofbreath, New sore throat, New diarrhea, New respiratory distress (fast breathing), New myalgias (muscle aches), New change or loss of taste sensation Do you have any urgent symptoms?: None- Patient meets criteria for testing. PLAN Endpoint recommendation: [facility] Personnel directed to contact Employee/Occupational Health , Screening positive, testing indicated, advised to be swabbed for COVID-19, sent to [place], [place], Self-isolation, quarantine at home and Home Care Care Points provided: Wash hands often with soap and water for at least 20 seconds, especially afterblowing your nose, coughing, sneezing, or having been in a public place If soap and water aren't available, use a hand metalsmith helper that contains at least 60% alcohol Avoid touching your face, nose and eyes Stay home except to get medical care Avoid public areas (do not go to work, school, etc) Avoid public transportation Stay in a specific room away from other people and pets Use a separate bathroom ifpossible Wear a facemask if you are sick before you enter the medical office Advise to contact theiremployer/occupational health department If patient is living with a high risk family member, seek medical advice from their primary care provider. *High risk includes family member with heart of lung disease (e.g. asthma, COPD), immunosuppression (e.g. cancer, HIV/AIDS), women, or 65 years and older Education: patient/caregiver Patient/caregiver able to teach back Patient agreeable to plan of care: Yes The following references were used: [facility] novel coronavirus (COVID- 19) resources CDC web site https://www.cdc.gov/coronavirus/2019-ncov/summary.html [facility] Nursing judgement documented in this encounter Plan of Treatment Not on filedocumented as of this encounter Visit Diagnoses Not on filedocumented in this encounter
--- OUTSIDE RECORDS SUMMARY | 2022-01-23 11:05 | XMS_ITS | Encounter Summary ---
:1990 Author Organization [facility] Address [address] [place] [address] Care Team Providers Name Role Phone Unavailable Primary Care Provider Unavailable Reason for Visit Reason Comments Earache Pain in bilateral ears Encounter Details Date Type Department Care Team Description 05/08/2020 Office Visit Urgent Care in [facility] Otitis Media Right [place], [place] [address] (Primary Dx) [address] [place] [id number] Social History Tobacco Use Types Packs/Day Years [...] 10/08/2019 relatives? How often do you attend episcopal or christian 1 to 4 times per year 10/08/2019 services? Do you belong to any clubs or organizations such No 10/08/2019 as episcopal groups, unions, fraternal or athletic groups, or [...] Sign Reading Time Taken Comments Blood Pressure 126/74 05/08/2020 4:16 PM LEATHER FINISHER Pulse 89 05/08/2020 4:16 PM LEATHER FINISHER Temperature 36.7 ??C (98.1 ??F) 05/08/2020 4:16 PM LEATHER FINISHER Respiratory Rate 16 05/08/2020 4:16 PM LEATHER FINISHER Oxygen Saturation - - Inhaled Oxygen Concentration - - Weight 111 kg (245 lb 9.5 oz) 05/08/2020 4:16 PM LEATHER FINISHER Height - - Body Mass Index 37.44 12/06/2011 2:28 PM CDT documented in this encounter Progress Notes [facility] Frederick - 05/08/2020 4:15 PM CST CHIEF COMPLAINT / REASON FOR VISIT Earache (Pain in bilateral ears). HISTORY OF PRESENT ILLNESS Jeanette Marcelo is a 29 y.o. female who presents for evaluation of Earache (Pain in bilateral ears) Patient presents for evaluation of bilateral ear pain worse on the right side for 2 days. Denies hearing difficulty, nausea vomiting, sinus pressure, cough or dizziness. The following portions of the patient's history were reviewed: medical history and problem list. No past medical history on file. No past surgical history on file. Current Outpatient Medications Medication Sig ??? albuterol (ACCUNEB) 2.5 mg /3 mL nebulizer solution Inhale 2.5 mg. ??? albuterol inhaler Inhale 2 puffs. ??? amphetamine-dextroamphetamine (ADDERALL XR) 25 mg 24 hr capsule Take 25 mg by mouth daily. ??? EPINEPHrine 0.3 mg/0.3 mL injection syringe Inject 0.3 mg intramuscularly. ??? famotidine (PEPCID) 20 mg tablet Take 20 mg by mouth. ??? famotidine (PEPCID) 20 mg tablet ??? HYDROcodone-acetaminophen (NORCO) 5-325 mg per tablet ??? ipratropium-albuteroL (DUONEB) 0.5-2.5 mg/3 mL nebulizer solution Inhale 3 mL. ??? LORazepam (ATIVAN) 0.5 mg tablet Take 0.5 mg by mouth. ??? multivitamin capsule Take 1 tablet by mouth daily. ??? polyethylene glycol (MIRALAX) 17 gram/dose oral powder Take 17 g by mouth. ??? spironolactone (ALDACTONE) 50 mg tablet Take 1 tablet (50 mg total) by mouth 2 (two) times a day. ??? amoxicillin (AMOXIL) 500 mg capsule Take 1 capsule (500 mg total) by mouth 3 (three) times a dayfor 10 days. Given from [facility] ??? medroxyPROGESTERone (PROVERA) 10 mg tablet Take 1 tablet (10 mg total) by mouth daily. You should have period within 2 weeks of finishing. Start control with 2nd day of period. (Patient not taking: Reported on 05/08/2020 ) ??? norethindrone-ethinyl estradiol-iron (Loestrin Fe 04/28, 28-Day,) 1 mg-20 mcg (21)/75 mg (7) per tablet Take 1 tablet by mouth daily. (Patient not taking: Reported on 05/08/2020 ) Allergies Allergen Reactions ??? Sertraline Other (see comments) Social History Socioeconomic History ??? Marital status: Single Spouse name: Not on file ??? Number of children: Not on file ??? Years of education: Not on file ??? Highest education level: 12th grade Occupational History ??? Not on file Social Needs ??? Financial resource strain: Somewhat hard ??? Food insecurity Worry: Sometimes true Inability: Sometimes true ??? Transportation needs Medical: Yes Non-medical: Yes Tobacco Use ??? Smoking status: Current Every Day Smoker Substance and Sexual Activity ??? Alcohol Use Frequency: Monthly or less Drinks per session: 1 or 2 Binge frequency: Never ??? Drug use: Not on file ??? Sexual activity: Not on file Lifestyle ??? Physical activity Days per week: 6 days Minutes per session: 100 min ??? Stress: To some extent Relationships ??? Social connections Talks on phone: Three times a week Gets together: Once a week Attends christian service: 1 to 4 times per year Active member of club or organization: No Attends meetings of clubs or organizations: Never Relationship status: Never ??? Intimate partner violence Fear of current or ex partner: No Emotionally abused: No Physically abused: No Forced sexual activity: No Other Topics Concern ??? Not on file Social History Narrative ??? Not on file REVIEW OF SYSTEMS Please see HPI for pertinent positives and negatives OBJECTIVE PHYSICAL EXAMINATION: BP 126/74 (BP Location: Right arm, Patient Position: Sitting, Cuff Size: Large) Pulse 89 Temp 36.7 ??C (Temporal) Resp 16 Wt 111 kg BMI 37.44 kg/m?? Body mass index is 37.44 kg/m??.Wt 111 kg Physical Exam General: Awake, and alert female. General appearance: Alert and orientated Eyes: Conjunctivae are clear without exudates. Ears: Right canal is erythematous with a bulging tympanic membrane and scant amount of fluid in the canal. Left tympanic membrane is normal in appearance with normal landmarks and cone of light. Nontender to palpation over the mastoid bone. Nose: Maxillary and frontal sinuses nontender to palpation. Mouth: Posterior oropharynx no evidence of tonsillitis or exudate, no tonsillar fluctuance to palpation to suggest abscess. Airway is patent and uvula is midline. Managing oral secretions and no stridor. Neck: Supple without lymphadenopathy. Heart: Heart rate and rhythm are normal. Respiratory: Lung sounds are clear in all lobes without wheezes. Skin: Warm and dry. DIAGNOSTICS Results for orders placed or performed in visit on 10/09/19 Prolactin Result Value Ref Range Prolactin Total 8.3 4.8 - 23.3 ng/mL S-TSH (Thyroid-Stimulating Hormone - Sensitive) Result Value Ref Range TSH, Sensitive, P 0.6 0.3 - 4.2 mIU/L Estradiol - (for men, children, and post-menopausal women) Result Value Ref Range Estradiol, Mass Spectrometry, S 48 pg/mL Follicle-Stimulating Hormone (FSH), Serum Result Value Ref Range Follicle-Stim Hormone (FSH), S 6.2 IU/L LH (Luteinizing Hormone) Result Value Ref Range Luteinizing Hormone (LH) 12.1 IU/L Testosterone, Total and Free Result Value Ref Range Testosterone, Free, S 1.57 (H) 0.06 - 1.03 ng/dL Testosterone, Total by Mass Spectrometry, Serum 56 8 - 60 ng/dL Glucose, Fasting Result Value Ref Range Glucose, P 75 70 - 100 mg/dL 25-Hydroxyvitamin D2 and D3 Result Value Ref Range 25-Hydroxy D2 <4.0 ng/mL 25-Hydroxy D3 36 ng/mL 25-Hydroxy D Total 36 ng/mL Dehydroepiandrosterone Sulfate (DHEA-S) Result Value Ref Range Dehydroepiandrosterone Sulfate, S 272 45 - 295 mcg/dL Hemoglobin A1c Result Value Ref Range Hemoglobin A1c, B 5.0 4.2 - 5.6 % ASSESSMENT / PLAN #1 Otitis Media Right IMPRESSION AND PLAN: Patient has right otitis media. TM is intact. Will be treated with amoxicillin. No evidence of sinusitis, tonsillitis or peritonsillar abscess. We discussed symptoms to monitor symptoms that should prompt them to return for re- evaluation. Patient demonstrates understanding of and agreement with the plan for discharge. All questions and concerns were addressed to the best of my ability. PLAN: See impression and plan for details Follow-up with your primary care provider (PCP) within 1-2 weeks. Sooner if symptoms persist. HER FINISHER documented in this encounter Plan of Treatment Not on filedocumented as of this encounter Visit Diagnoses Diagnosis Otitis Media Unspecified Right Ear - Ciara jacobsen documented in this encounter
--- OUTSIDE RECORDS SUMMARY | 2022-01-23 11:05 | XMS_ITS | Encounter Summary ---
:1990 Author Organization [facility] Address [address] [place] [address] Care Team Providers Name Role Phone Elsewhere, Pcp Primary Care Provider Unavailable Reason for Referral Outpatient (Routine) - Authorized Specialty Diagnoses / Procedures Referred By Contact Refer red To Contact Obstetrics and Simón Kinney SE Alethea Berto Ferreira M.D. [address], [place] [address] Referral ID Status Reason Start Date Expiration Date Visits V isits Requested Authorized [id number] Authorized 11/29/2021 11/28/2024 1 1 Outpatient (Routine) - Closed Specialty Diagnoses / Procedures Referred By Contact Refer red To Contact Procedures Simón Kinney Jr., [facility] [place] [facility] [place] Pelvis Transvaginal [place] [address], [place] [address] Referral ID Status Reason Start Date Expiration Date Visits Requ ested Visits Authorized [id number] Closed 11/29/2021 11/29/2022 1 1 Reason for Visit Reason Comments Menorrhagia Outpatient (Routine) - Closed Specialty Diagnoses / Procedures Referred By Contact Refer red To Contact Obstetrics and Diagnoses Menorrhagia Simón Kinney SE Gynecology Jimmy Ferreira [address], [place] [address] Referral ID Status Reason Start Date Expiration Date Visits Requ ested Visits Authorized [id number] Closed 11/08/2021 11/08/2022 1 1 Encounter Details Date Type Department Care Team Description 11/29/2021 Office Visit Department of Obstetrics Simón Kinney Jr., Menorrhagia and Gynecology in [place], [place] [address] [place] [phone] (Wo rk) Social History Tobacco [...] 10/08/2019 relatives? How often do you attend religious or anabaptism 1 to 4 times per year 10/08/2019 services? Do you belong to any clubs or organizations such No 10/08/2019 as religious groups, unions, fraternal or athletic groups, or [...] Pulse 72 11/29/2021 8:45 AM CDT Temperature - - Respiratory Rate 16 11/29/2021 8:45 AM CDT Oxygen Saturation - - Inhaled Oxygen Concentration - - Weight 118 kg (259 lb 0.7 oz) 11/29/2021 8:45 AM CDT Height - - Body Mass Index 39.49 12/06/2011 2:28 PM CDT documented in this encounter Progress Notes Simón Kinney Jr., M.D. - 11/29/2021 8:45 AM CDT SUBJECTIVE CHIEF COMPLAINT/REASON FOR VISIT Menorrhagia. HISTORY OF PRESENT ILLNESS Jeanette Marcelo is a 31 y.o. female who presents to the clinic for menorrhagia. WhenI last saw her, we put her on Provera for 14 days. She started bleeding on day 12, which was about 4days ago. She has had excessive bleeding since and she has been soaking through pads and needing to get up every 2 hours to change her pads. She bled through double pads in 3 hours during the night. She is currently still smoking more than 1/2 pack a day. There are no further concerns at this time. ALLERGIES/CONTRAINDICATIONS Allergies Allergen Reactions Bee Venom Protein (Honey Bee) Other (see comments) Spironolactone Other (see comments) Patient felt weak, passed out and was transported to EMERGENCY DEPARTMENT Food Extracts Rash mangos and cashews Sertraline Other (see comments) OBJECTIVE VITAL SIGNS BP 126/80 Pulse 72 Resp 16 Wt 118 kg LMP 11/25/2021 BMI 39.49 kg/m?? PHYSICAL EXAMINATION General: Patient appears well groomed and well nourished. No acute distress. Oriented times three. DIAGNOSTICS CBC and ferritin are pending. Pelvic ultrasound shows normal uterus with endometrium of 10.8 mm, right ovary is visualized and normal, left ovary is not visualized. ASSESSMENT / PLAN #1 Menorrhagia Overview: She has completed a round of Provera and has bled excessively. CBC and ferritin are pending. At thistime, will start her on OCPs. Discussed the importance of quitting smoking since she is starting on OCPs. She will follow up in 1 month for a recheck. If she continues to have significant bleeding, would consider D&C at that point. If her bleeding has not improved by Sunday, she would let me know. Orders: - Obstetrics and Gynecology office visit (clinic) - US Pelvis Transvaginal - CBC without Differential; Future; Expected date: 11/29/2021 - Ferritin; Future; Expected date: 11/29/2021 Other orders - norethindrone-ethinyl estradiol-iron (Loestrin Fe 04/28, 28-Day,) 1 mg-20 mcg (21)/75 mg (7) per tablet; Take 1 tablet by mouth daily., Starting Sun11/29/2021, Normal - Obstetrics and Gynecology office visit (clinic); Future; Expected date: 12/30/2021 #2 Followup PLAN: She will follow up in 1 month for recheck. Patient will contact the clinic with questions or concerns prior to this time. This document serves as a record of services personally performed by Simón Kinney MD. It was created on their behalf by Sandi Sher, a trained medical laboratory technologist. The creation of this record is based onthe scribe's personal observations and the provider's statements to them. This document has been [facility] and approved by the attending provider. documented in this encounter Plan of Treatment Scheduled Referrals Name Type Priority Associated Order Schedule Diagnoses Obstetrics and Outpatient Referral Routine Expect ed: Gynecology office 12/30/2021 visit (clinic) (Approximate) , Expires: 03/01/2023 documented as of this encounter Procedures Procedure Name Priority Date/Time Associated Comments Diagnosis US PELVIS RAD - Routine 11/29/2021 9:33 Menorrhagia Results for TRANSVAGINAL (most inpatients AM CDT this proced ure and all are in the outpatients) results section. documented in this encounter Results Ferritin (11/29/2021 9:54 AM CDT) P athologist [...] Laterality Blood (Blood, 11/29/2021 9:54 AM 11/30/19 1:17 Venous) CDT PM CDT Simón Kinney Jr., M.D. LAB BLOOD ADD-ON Performing Organization Address City/State/ZIP Code Phon e Number [facility]- [address] [place] [address] [place] [address] System in [place] [address] (ABNORMAL) CBC without Differential (11/29/2021 9:54 AM CDT) [facility] gist Method Time Signature Hemoglobin 11.4 (L) 11.6 - 11/29/2021 FB60 15.0 g/dL 9:59 AM CDT Hematocrit 37.4 35.5 - 11/29/2021 FB60 44.9 % 9:59 AM CDT Erythrocytes 4.10 3.92 - 11/29/2021 FB60 5.13 9:59 AM CDT x10(12)/L MCV 91.2 78.2 - 11/29/2021 FB60 97.9 fL 9:59 AM CDT RBC Distrib Width 14.7 12.2 - 11/29/2021 FB60 16.1 % 9:59 AM CDT Platelet Count 237 157 - 371 11/29/2021 FB60 x10(9)/L 9:59 AM CDT Leukocytes 10.3 (H) 3.4 - 9.6 11/29/2021 FB60 x10(9)/L 9:59 AM CDT Specimen Anatomical Collection Method Collection Time Receive d Time (Source) Location / / Volume Laterality Blood (Blood, 11/29/2021 9:54 AM 11/30/19 9:54 Venous) CDT AM CDT Simón Kinney Jr., M.D. LAB BLOOD ADD-ON Performing Organization Address City/State/ZIP Code Phon e Number [facility]- [address] [place] [address] [facility] [address] [place] [address] [address] [place] Pelvis Transvaginal (11/29/2021 9:33 AM CDT) [...] Simón Kinney Jr., M.D. IMG US PROCEDURES documented in this encounter Visit Diagnoses Diagnosis Menorrhagia documented in this encounter Care Teams Glass Setter Relationship Specialty Start Date End Date Elsewhere, Pcp PCP - General Internal Medicine 03/17/21 documented as of this encounter
--- OUTSIDE RECORDS SUMMARY | 2022-01-23 11:05 | XMS_ITS | Encounter Summary ---
:1990 Author Organization [facility] Address [address] [place] [address] Care Team Providers Name Role Phone Elsewhere, Pcp Primary Care Provider Unavailable Encounter Details Date Type Department Care Team Description 12/05/2021 Orders Only Department of Simón Kinney (Primary Obstetrics and Jimmy Ferreira Dx) Gynecology in [address] [address] [place], [place] [phone] (Work) [phone] Social History Tobacco Use Types Packs/Day Years [...] 10/08/2019 relatives? How often do you attend yarsani or rastafari 1 to 4 times per year 10/08/2019 services? Do you belong to any clubs or organizations such No 10/08/2019 as yarsani groups, unions, fraternal or athletic groups, or [...] on file documented as of this encounter Plan of Treatment Not on filedocumented as of this encounter Results (ABNORMAL) CBC without Differential (12/05/2021 4:35 PM CDT) [facility] gist Method Time Signature Hemoglobin 9.7 [...] Organization Address City/State/ZIP Code Phon e Number [address] [place] [address] [facility] [address] [place] [address] [address] documented in this encounter Visit Diagnoses Diagnosis Menorrhagia - Primary documented in this encounter Care Teams Automatic Engraver Relationship Specialty Start Date End Date Elsewhere, Pcp PCP - General Internal Medicine 03/17/21 documented as of this encounter
--- OUTSIDE RECORDS SUMMARY | 2022-01-23 11:05 | XMS_ITS | Encounter Summary ---
:1990 Author Organization [facility] Address [address] [place] [address] Care Team Providers Name Role Phone Unavailable Primary Care Provider Unavailable Reason for Visit Reason Comments Treatment Questions Encounter Details Date Type Department Care Team Description 06/23/2019 Clinical Division of Beena Andrade Qu estions Communication [facility] L, R.N. [facility] [phone] [facility], in (Work) [place], [place] [address] [place] [address] Social History Tobacco Use Types Packs/Day Years [...] 10/08/2019 relatives? How often do you attend pentecostalism or religion 1 to 4 times per year 10/08/2019 services? Do you belong to any clubs or organizations such No 10/08/2019 as pentecostalism groups, unions, fraternal or athletic groups, or [...] this encounter Miscellaneous Notes Telephone Encounter - Beena Andrade R.N. - 06/23/2019 5:50 PM CDT Nurse Phone Triage Assessment CHIEF COMPLAINT / REASON FOR CALL Questions regarding novel coronavirus (COVID-19) HISTORY OF PRESENT ILLNESS Jeanette Marcelo calls to report increasing shortness of breath, weight on chest, sore throat, runny nose, and a slight cough. She has been fevering, with her latest temperature of 99.4 F maintained on Tylenol. History of Asthma, which places her at higher risk. Does patient have fever, cough or respiratory symptoms? Yes Have you had close contact with a person with a laboratory confirmed case of COVID-19? Unsure Has the patient had air travel/cruise or domestic travel to major metropolitan areas in the last 14 days? No Does patient fall into any of the high risk categories as identified by [facility] Infectious Disease? Yes, due to history of Asthmas SYMPTOM ASSESSMENT Do you have lightheadedness? Yes Do you feel like you may collapse when you sit or stand up? Yes Respiratory effort/distress: SOB with exertion, SOB at rest, SOB with cough Date of onset of SOB: Increasingly worsening since 06/19 Patient was recommended to go to local ED, though it's not a part of our [place] system, though unsure if she would be tested there or not. Spoken with small appliance assembly supervisor over this too. Still recommended to go [facility], but spoke with patient of her comfort level, and she decided and chooses to go to [facility] through clinic tomorrow 06/23, but would address emergency help if needed. Cough: Productive, wet and dry Date of onset of cough: 06/19 worsening Fever: Yes, describe: Highest noted was 101.2, and latest was 99.4 on Tylenol Date of onset of fever: 06/19, worsening Exposure to influenza (if high risk illness/disease consider Influenza Treatment Nurse Protocol): Unsure Other symptoms: PLAN Endpoint recommendation: Emergency Department and Advised to be swabbed for COVID-19 Care Points provided: Wash hands often with soap and water for at least 20 seconds, especially afterblowing your nose, coughing, sneezing, or having been in a public place., If soap and water aren't available use a hand iron caster that contains at least 60% alcohol., Avoid touching your face, nose andeyes., Avoid public areas (do not go to work, school, etc.)., Avoid public transportation., Wear a facemask if you are sick before you enter the medical office., Notify primary care provider if any newor worsening symptoms. and Go to the nearest emergency department if any of the following occur: 1) New shortness of breath at rest, 2) Pain, pressure or tightness unrelated to coughing in chest, jaw or arm, 3) Newly confused or unable to stay alert and awake. Education: patient/caller Patient/caregiver able to teach back Caller agreeable to plan of care: Yes The following references were used: [facility] novel coronavirus (COVID- 19) resources, CDC website https://www.cdc.gov/coronavirus/2019- ncov/summary.html, Nursing judgement documented in this encounter Plan of Treatment Not on filedocumented as of this encounter Visit Diagnoses Not on filedocumented in this encounter
--- OUTSIDE RECORDS SUMMARY | 2022-01-23 11:05 | XMS_ITS | Encounter Summary ---
:1990 Author Organization [facility] Address [address] [place] [address] Care Team Providers Name Role Phone Unavailable Primary Care Provider Unavailable Encounter Details Date Type Department Care Team Description 08/05/2009 Hospital Encounter HX [facility] Jenna Pérez, [employer] C.N.P. [address] [place] [address] (Wo rk) Social History Tobacco Use Types Packs/Day Years Used Date Smoking Tobacco: Never Assessed Alcohol Habits Answer Date Recorded How often [...] 10/08/2019 relatives? How often do you attend hindu or mandaeism 1 to 4 times per year 10/08/2019 services? Do you belong to any clubs or organizations such No 10/08/2019 as hindu groups, unions, fraternal or athletic groups, or [...] Dispensed Refills Start Date End Date albuterol inhaler Inhale 2 puffs. 0 08/02/2009 documented as of this encounter Miscellaneous Notes Miscellaneous - Jenna Pérez, CHERI, R.N. - 08/05/2009 1:34 PM CDT Reminder Msg Document Contains Addenda Addendum by JOSE ARMANDO COLLINS LPN on 05 August 2009 14:31:58 CDT Patient has been notified of results via phone. Verbalized understanding. From: JENNA PÉREZ MANUFACTURING ENGINEERING INTERN To: JOSE ARMANDO COLLINS LPN Sent: 08/05/2009 13:34:56 CDT ! Show up: 08/05/2009 13:32:00 CDT Subject: Reminder Msg Actions: Notify patient of results Due Date/Time: 08/05/2009 13:32:00 CDT Source: [facility] [employer] Document Id: [id number] Electronically signed by Conversion, [facility] Medical Assisting Program Director [id number] at 09/11/2016 3:34 AM CDT documented in this encounter Plan of Treatment Not on filedocumented as of this encounter Procedures Procedure Name Priority Date/Time Associated Diagnosis Comme nts US ABDOMEN LIMITED Routine 08/05/2009 10:20 AM Re sults for this CDT procedure are i n the results section. documented in this encounter Results US Abdomen Limited (08/05/2009 10:20 AM CDT) Anatomical Region Laterality Modality Abdomen N/A Ultrasound Specimen (Source) Anatomical Collection Method Collection Time Re ceived Time Location / / Volume Laterality 08/05/2009 10:20 AM CDT Narrative 08/05/2009 11:24 AM CDT In comparison with the ultrasound report of 03/11/2007, the gallbladder appears normal with no evidence of galls tones or gallbladder wall thickening or pericholecystic fluid collections and De Guzman's sign is negative. ??Common duct diameter is 3.2 mm which is normal. ??The liver appears normal with no evidence of liver masses or dilated intr ahepatic bile ducts. ??The pancreas was partially obscured by bowel gas but appears normal as seen. ??The aorta inferior vena cava and right kidney appe ar normal. No masses or free fluid were evident as visualized. IMPRESSION The limited right upper quadrant ultraso und appears normal as visualized. Titi Schuler M.D.dpe ?D: ? THIS IS AN ELEC TRONICALLY VERIFIED REPORT 08/05/2009 11:24 AM: ??Zaira Coronel Procedure Note Provider, Jimmy Villalpando - 08/31/2016F ormatting of this note might be different from the original. In comparison with the ultrasound report of 03/11/2007, the gallbladder appears normal with no evidence of galls tones or gallbladder wall thickening or pericholecystic fluid collections and De Guzman's sign is negative. Common duct diameter is 3.2 mm which is normal. The liver appears normal with no evidence of liver masses or dilated intr ahepatic bile ducts. The pancreas was partially obscured by bowel gas but appears normal as seen. The aorta inferior vena cava and right kidney appe ar normal. No masses or free fluid were evident as visualized. IMPRESSION The limited right upper quadrant ultraso und appears normal as visualized. Titi Schuler M.D.dpe T: 08/05/2009 11:24 am THIS IS AN ELECTRONICALLY VERIFIED REPORT 08/05/2009 11:24 AM: Titi Schuler M.D. Historical Provider IMG US PROCEDURES documented in this encounter Visit Diagnoses Not on filedocumented in this encounter
--- OUTSIDE RECORDS SUMMARY | 2022-01-23 11:05 | XMS_ITS | Encounter Summary ---
:1990 Author Organization [facility] Address [address] [place] [address] Care Team Providers Name Role Phone Elsewhere, Pcp Primary Care Provider Unavailable Reason for Visit Outpatient (Routine) - Closed Specialty Diagnoses / Procedures Referred By Contact Refer red To Contact Procedures Simón Kinney Jr., [facility] Pelvis Transvaginal [place] [address] [place] [phone] Referral ID Status Reason Start Date Expiration Date Visits Requ ested Visits Authorized [id number] Closed 11/29/2021 11/29/2022 1 1 Encounter Details Date Type Department Care Team Description 11/29/2021 Silent Schedule Department of Obstetrics Freya Kinney Jr., and Gynecology in [place], [place] [address] [phone] (Wo rk) Social History Tobacco Use Types [...] How often do you attend holiness or samaritan 1 to 4 times per year 10/08/2019 [...] section. documented in this encounter Results US Pelvis Transvaginal (11/29/2021 9:33 AM CDT) [...] Diagnoses Not on filedocumented in this encounter Care Teams Pain Management Nurse Relationship Specialty Start Date End Date Elsewhere, Pcp PCP - General Internal Medicine 03/17/21 documented as of this encounter
--- OUTSIDE RECORDS SUMMARY | 2022-01-23 11:05 | XMS_ITS | Encounter Summary ---
:1990 Author Organization [facility] Address [address] [place] [address] Care Team Providers Name Role Phone Unavailable Primary Care Provider Unavailable Encounter Details Date Type Department Care Team Description 07/09/2020 Orders Only [facility] PCP TH Sa shara Aldridge M.D. [address] [place], [place] [phone] (Wo rk) Social History Tobacco Use Types [...] 10/08/2019 relatives? How often do you attend protestant or protestant 1 to 4 times per year 10/08/2019 services? Do you belong to any clubs or organizations such No 10/08/2019 as protestant groups, unions, fraternal or athletic groups, or [...]
--- OUTSIDE RECORDS SUMMARY | 2022-01-23 11:05 | XMS_ITS | Encounter Summary ---
:1990 Author Organization [facility] Address [address] [place] [address] Care Team Providers Name Role Phone Unavailable Primary Care Provider Unavailable Encounter Details Date Type Department Care Team Description 08/02/2009 Hospital Encounter [facility]X [facility] Jenna Pérez, MOLDING MACHINE OPERATOR, C.N.P. [address] [place] [address] (Wo rk) Social History Tobacco Use Types [...] 10/08/2019 relatives? How often do you attend anabaptism or gnosticism 1 to 4 times per year 10/08/2019 services? Do you belong to any clubs or organizations such No 10/08/2019 as anabaptism groups, unions, fraternal or athletic groups, or [...] 0 08/02/2009 documented as of this encounter Progress Notes Jenna Pérez, CHERI, R.N. - 08/02/2009 12:00 AM CDT [id number] CHIEF COMPLAINT / REASON FOR VISIT Right upper quadrant pain, gallbladder disease. HISTORY OF PRESENT ILLNESS Jeanette is a 18-year-old young woman who states that 2 years ago when she was carrying her child she had a gallbladder attack and was told she had sludge in her common bile duct and to consider having her gallbladder out after her baby was born. Time has passed. She has had intermittent issues but now in the last 2 weeks quite severe pain in the right upper quadrant where she is feeling full, distension, bulging, warmth. She feels like she can feel her gallbladder pulsating. Her grandmother and mother have all had their gallbladders removed at young ages. She is quite certain that that is the problem. 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 She has had brown-green stools lately. PAST MEDICAL / SURGICAL HISTORY 1) Asthma. SOCIAL HISTORY She does use tobacco also. CURRENT MEDICATIONS Reviewed and no changes per EMR. ALLERGIES Reviewed and no changes per EMR. VITAL SIGNS Reviewed with no changes per EMR. PHYSICAL EXAM GENERAL: She is alert, interactive, obese young woman in no acute distress. HEAD: Normocephalic. EYES: PERRLA. ENT: Oral mucosa is moist. Palate rises symmetrically. Neck is supple. LUNGS: Clear. HEART: Rate is regular. ABDOMEN: Obese and distended. No hepatosplenomegaly. There is slight tenderness to the right upper quadrant with palpation. No rebound tenderness. Bowel sounds are present. IMPRESSION / REPORT / PLAN DIAGNOSTICS: CBC slightly elevated white cell count at 11,000. Comprehensive panel is pending. IMAGING STUDIES: Gallbladder ultrasound will be ordered tomorrow. 1) Right upper quadrant pain, probable gallbladder disease. 2) Obesity. PLAN: I will call her tomorrow at [phone] with results of the final labs and the plan for ultrasound. She will drink clear liquids in the morning because it may be possible that we may be able to ultrasound tomorrow. If she has vomiting or inability to keep fluids down or acute pain unresolving overnight she will return for emergent evaluation. She agrees with this plan. Jenna Pérez A.P.R.N., bft Bianka, C.D.E. Electronically Signed By:JENNA PÉREZ On 08/05/2009 01:29 PM Source: [facility] MHSDOLBEYNONRADSYS Document Id: [id number] documented in this encounter Miscellaneous Notes Miscellaneous - Jenna Pérez APRN, R.N. - 08/03/2009 11:25 AM CDT Reminder Msg Document Contains Addenda Addendum by JOSE ARMANDO COLLINS LPN on 03 August 2009 11:31:20 CDT Patient has been notified of test results and verbalized understanding. Scheduled for Gallbladder US on at 10am. From: JENNA PÉREZ EQUIPMENT MECHANIC To: JOSE ARMANDO COLLINS LPN Sent: 08/03/2009 11:25:41 CDT ! Show up: 08/03/2009 11:25:00 CDT Subject: Reminder Msg Actions: Notify patient of results Due Date/Time: 08/03/2009 11:25:00 CDT Source: [facility] POWERCHART Document Id: [id number] Electronically signed by Prosper, [facility] Collar Fuser [id number] at 09/11/2016 3:34 AM CDT Miscellaneous - Conversion, Historical Provider Ser - 08/02/2009 4:50 PM CDT Adult Digital Imager Intake/History Adult Digital Imager Intake/History Entered On: 08/02/2009 16:55 CDT Performed On: 08/02/2009 16:50 CDT by JOSE ARMANDO COLLINS LPN Intake Chief Complaint: abdominal pain. ? gallbladder. has been inflamed. feels like her insides are burning Temperature Oral: 36.5DegC(Converted to: 97.7DegF) Peripheral Pulse Rate: 88bpm Respiratory Rate: 16br/min Systolic Blood Pressure: 120mmHg Diastolic Blood Pressure: 84mmHg NIBP Mean: 96mmHg BP Location: Right upper extremity Actual Weight: 104.600kg(Converted to: 230.604lb) Dosing Weight Clinic: 104.60kg JOSE ARMANDO COLLINS FITTING ROOM OPERATOR 08/02/2009 16:50 CDT Subjective Pain Symptoms: Yes JOSE ARMANDO COLLINS [facility] 08/02/2009 16:50 CDT Pain Pain Assessment Grid Pain 1 Location: Abdomen Intensity: [address] [facility] 08/02/2009 16:50 CDT Dependent Habits Tobacco Use/Currently Using: Yes JOSE ARMANDO COLLINS [facility] 08/02/2009 16:50 CDT Tobacco Use Grid Type: Cigarettes Cigarette Use Packs/Day: 0.5 (Comment: 6 daily [JOSE ARMANDO COLLINS [facility] 08/02/2009 16:50 CDT] ) JOSE ARMANDO COLLINS [facility] 08/02/2009 16:50 CDT Allergies [facility] POWER[facility] Document Id: [id number] CDT!25 documented in this encounter Plan of Treatment Not on filedocumented as of this encounter Visit Diagnoses Not on filedocumented in this encounter
--- OUTSIDE RECORDS SUMMARY | 2022-01-23 11:05 | XMS_ITS | Encounter Summary ---
:1990 Author Organization [facility] Address [address] [place] [address] Care Team Providers Name Role Phone Unavailable Primary Care Provider Unavailable Encounter Details Date Type Department Care Team Description 08/16/2011 Hospital Encounter [facility]X [facility] Kory Flores M.D. [address] [place] [phone] [phone] (Wo rk) Social History Tobacco Use Types [...] 10/08/2019 relatives? How often do you attend tenriism or religion 1 to 4 times per year 10/08/2019 services? Do you belong to any clubs or organizations such No 10/08/2019 as tenriism groups, unions, fraternal or athletic groups, or [...] Sign Reading Time Taken Comments Blood Pressure 102/68 08/16/2011 10:49 AM CDT Pulse 88 08/16/2011 10:49 AM CDT Temperature - - Respiratory Rate 20 08/16/2011 10:49 AM CDT Oxygen Saturation - - Inhaled Oxygen Concentration - - Weight 109 kg (240 lb 4.8 oz) 08/16/2011 10:49 AM CDT Height - - Body Mass Index - - documented in this encounter Medications at Time of Discharge Medication Sig Dispensed Refills Start Date End Date albuterol inhaler Inhale 2 puffs. 0 08/02/2009 documented as of this encounter Progress Notes Tavo Flores M.D. - 08/16/2011 12:00 AM CDT [id number] CHIEF COMPLAINT/REASON FOR VISIT Buttock injury and hematuria. 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 Sunday she was wearing flip flops, it was raining, and she was going down some concrete stairs. She lost her balance and fell landing on her buttocks, primarily the left, and bounced down several steps. She then was going up the stairs later and tripped again, twisted around and bounced down the steps. On Sunday morning she did have some gross hematuria initially which has disappeared and she has had no flank pain. She has had no other symptoms except ecchymosis and tenderness high in the left buttock. She has also had some sacral tenderness. Medications and allergies reviewed per EMR. SYSTEMS REVIEW CONSTITUTIONAL: Good health. No fever. Normal appetite RESPIRATORY: No cough, dyspnea or wheeze. Smoking history is noted. BACK AND MUSCULATURE: Discomfort and ecchymosis high left buttock and left flank earlier but the flank pain gone now. Some sacral tenderness. No weakness in her legs. NEURO: No numbness, tingling or weakness. PAST MEDICAL / SURGICAL HISTORY Essentially unremarkable. 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 The vital signs reviewed per EMR PHYSICAL EXAM Alert, pleasant woman in no acute distress Lungs are clear. No wheezes, rales or rhonchi HEART: Regular. No murmur BACK: Nontender in the thoracic or lumbar area. Her gait is normal. BUTTOCKS: Reveal an 8 x 10 cm area of ecchymosis with minimal induration and tenderness high in the left buttock. Mild sacral tenderness as well. Abdomen is soft, obese, no tenderness SKIN: Ecchymosis left buttock. Otherwise negative. Urinalysis was essentially normal. X-rays of the sacrum and coccyx obtained and interpreted temporaneously by me showed no fracture. IMPRESSION / REPORT / PLAN Left buttock injury with transient hematuria. RECOMMEND: Reassurance, ice, continued activity. Kristine [email or web address] Gilliland Electronically Signed By: TAVO FLORES MD On: 08/21/2011 08:00 AM Source: [facility] MHSDOLBEYNONRADSYS Document Id: [id number] documented in this encounter Nursing Notes Héctor Meng L.P.NKenton - 08/24/2011 7:56 AM CDT Tried to notify patient three times of negative urine culture. Pt did not return phone call. 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 Entered On: 08/16/2011 10:51 CDT Performed On: 08/16/2011 10:49 CDT by KYLER GARCIA Intake Chief Complaint : Fell down stairs- lower back pain Onset of Symptoms : Sunday Temperature Oral : 37.0C(Converted to: 98.6DegF) Peripheral Pulse Rate : 88/min Respiratory Rate : 20/min Heart Rhythm : Regular Systolic Blood Pressure : 102mmHg Diastolic Blood Pressure : 68mmHg NIBP Mean : 79mmHg BP Location : Right upper extremity Blood Pressure Cuff Size : Large Actual Weight : 109.0kg(Converted to: 240lb 5oz) Weight Source : Standing scale Dosing Weight Clinic : 109.00kg KYLER GARCIA - 08/16/2011 10:49 CDT Subjective Pain Symptoms : Yes KYLER GARCIA - 08/16/2011 10:49 CDT Pain Pain Assessment Grid Pain 1 Location : Lower back Laterality : Bilateral KYLER GARCIA Bhumi - 08/16/2011 10:49 CDT Dependent Habits Tobacco Use/Currently Using : Yes Smoking Status : Current every day smoker KYLER GARCIA - 08/16/2011 10:49 CDT Tobacco Use Grid Type : Cigarettes Cigarette Use Packs/Day : 0.5 KYLER GARCIA Bhumi - 08/16/2011 10:49 CDT Allergy Allergies (Active) NKA Estimated Onset Date: Unspecified ; Created By: JOSE ARMANDO COLLINS LPN; Reaction Status: Active ; Category: Drug ; Substance: NKA ; Type: Allergy ; Updated By: JOSE ARMANDO COLLINS LPN; Reviewed Date: 08/16/2011 10:48 CDT Source: [facility] Document Id: [id number] CDT!30 documented in this encounter Plan of Treatment Not on filedocumented as of this encounter Procedures Procedure Name Priority Date/Time Associated Comments Diagnosis DX SACRUM COCCYX 2+ Routine 08/16/2011 11:37 Resu lts for this VIEWS AM CDT procedure are i n the results section. URINALYSIS WITH Routine 08/16/2011 11:28 Results for this MICROSCOPIC AM CDT procedure are i n the results section. BACTERIAL CULTURE, Routine 08/16/2011 11:28 Resul ts for this AEROBIC, URINE AM CDT procedure are in the results section. documented in this encounter Results DX Sacrum Coccyx 2+ Views (08/16/2011 11:37 AM CDT) Anatomical Region Laterality Modality Sacral Spine, Coccyx N/A Radiographic Imagin g Specimen (Source) Anatomical Collection Method Collection Time Re ceived Time Location / / Volume Laterality 08/16/2011 11:37 AM CDT Addenda Addendum by Provider, Jimmy Villalpando 08/16/2011 11:37 AM CDT RAD^^^OW XR Sacrum andor Coccyx 2 or more views 08/16/2011 11:37:03 Impressions 08/16/2011 12:08 PM CDT ??No appreciable fractures. Narrative 08/16/2011 12:08 PM CDT EXAM: ??XR Sacrum and/or Coccyx 2 or mor e views AGE: ??20 years old. GENDER: ??Female. INDICATION: ??Sunday fell down on buttoc ks on concrete steps, bounced down, very tender and ecchymotic. ??had gross hematuria , cleared. COMPARISON: ??None. FINDINGS: ??No appreciable fractures of the sacrum or coccyx. If there is strong concern for occult injury, MRI or CT may be helpful for further evaluation. Procedure Note Harshil Cummings M.D. / Provider, Efren hagen M.D. - 08/29/2016 EXAM: XR Sacrum and/or Coccyx 2 or more views AGE: [age] years old. GENDER: Female. INDICATION: Sunday fell down on buttocks on concrete steps, bounced down, very tender and ecchymotic. had gr oss hematuria , cleared. COMPARISON: None. FINDINGS: No appreciable fractures of th e sacrum or coccyx. If there is strong concern for occult injury, MRI or CT may be helpful for further evaluation. IMPRESSION: No appreciable fractures. Narcisa Goss(Maik) [facility] PROCE DURES (ABNORMAL) Urinalysis, Complete, Includes Microscopic (08/16/2011 11:28 AM CDT) [facility] Method Time Signature Source Clean Void POWERCHART Urine HXUr Color STRAW POWERCHART Glucose Negative Negative POWERCHART HXBILIRUBIN Negative Negative POWERCHART Ketones, QL(U) Negative Negative POWERCHART Specific 1.025 >=1.030 POWERCHART [place], POCT, U pH, POCT, Urine 6.0 8.5 POWERCHART Protein, Ur, Dip Negative Negative POWERCHART Urobilinogen 0.2 1.0 POWERCHART HXNITRITE Negative Negative POWERCHART HXBLOOD Negative Negative POWERCHART Leukocyte Small (A) Negative POWERCHART Esterase HXUr WBC 5-10 (A) 0 - 5 POWERCHART Red Blood Cell 0-3 0 - 3 POWERCHART Clump, Urine HXUr Bacteria Moderate (A) Negative POWERCHART HXUr Epithelial Moderate Negative POWERCHART HX MUCOUS Small Negative POWERCHART THREADS Specimen (Source) Anatomical Collection Method Collection Time Re ceived Time Location / / Volume Laterality Urine 08/16/2011 11:28 AM CDT Tavo Flores M.D. LAB URINE ORDERABLES Performing Organization Address [facility] Phon e Number POWERCHART (ABNORMAL) Bacterial Culture, Aerobic, Urine (08/16/2011 11:28 AM CDT) [facility] Signature Bacterial (POSITIVE POWERCHART Culture, ) Aerobic, Urine Comment: Streptococcus agalactiae (Group B Strep) isolates that are Sensitive to Erythromycin should be treated as Resist ant, and Erythromycin should NOT be used as a drug of choice for treatment per [employer] ux Technical Bulletin. HXPre [facility] POWERCHART Comment: <10,000 cfu/mL Gram Positive Cocci No further work-up. HXFinal [facility] POWERCHART Comment: 10,000 - 50,000 cfu/mL Gram Positive Charles ci Mixed yue (multiple species present) No further work-up. Specimen Anatomical Collection Method Collection Time Receive d Time (Source) Location / / Volume Laterality Urine 08/16/2011 11:28 08/16/2011 AM CDT 11:28 AM CDT Tavo Flores M.D. LAB MICROBIOLOGY - GENERAL O RDERABLES Performing Organization Address [facility] Phon e Number POWERCHART documented in this encounter Visit Diagnoses Not on filedocumented in this encounter
--- OUTSIDE RECORDS SUMMARY | 2022-01-23 11:05 | XMS_ITS | Encounter Summary ---
:1990 Author Organization [facility] Address [address] [place] [address] Care Team Providers Name Role Phone Unavailable Primary Care Provider Unavailable Encounter Details Date Type Department Care Team Description 10/29/2019 Orders Only Department of Obstetrics Simón Kinney Jr., and Gynecology in [place], [place] [address] [place] [id number] [place] [address] [phone] Social History Tobacco Use Types Packs/Day Years [...] 10/08/2019 relatives? How often do you attend christian or buddhist 1 to 4 times per year 10/08/2019 services? Do you belong to any clubs or organizations such No 10/08/2019 as christian groups, unions, fraternal or athletic groups, or [...]
--- OUTSIDE RECORDS SUMMARY | 2022-01-23 11:05 | XMS_ITS | Encounter Summary ---
:1990 Author Organization [facility] Address [address] [place] [address] Care Team Providers Name Role Phone Unavailable Primary Care Provider Unavailable Encounter Details Date Type Department Care Team Description 10/15/2019 Orders Only Department of Siómn Kinney Polycystic Ovary Obstetrics and [place] Ferreira Syndrome (Primary Dx) Gynecology in [address] [place], [place] [address] [facility] [address] [place], [place] [phone] [address] (Work) [phone] Social History Tobacco Use Types Packs/Day Years [...] How often do you attend hindu or buddhist 1 to 4 times per [...] as of this encounter Visit Diagnoses Diagnosis Polycystic Ovary Syndrome - Primary documented in this encounter
--- OUTSIDE RECORDS SUMMARY | 2022-01-23 11:05 | XMS_ITS | Encounter Summary ---
:1990 Author Organization [facility] Address [address] [place] [address] Care Team Providers Name Role Phone Unavailable Primary Care Provider Unavailable Reason for Visit Reason Comments COVJOANN Nurse Line Encounter Details Date Type Department Care Team Description 06/23/2019 Clinical Communication Central Appointment FREDY Dinero Nurse Line Office in [place], [place] [address] [place] [address] Social History Tobacco Use Types [...] 10/08/2019 relatives? How often do you attend uatsdin or pentecostal 1 to 4 times per year 10/08/2019 services? Do you belong to any clubs or organizations such No 10/08/2019 as uatsdin groups, unions, fraternal or athletic groups, or [...] this encounter Miscellaneous Notes Telephone Encounter - Mady Pastrana - 06/23/2019 5:47 PM CDT Febrile Respiratory Illness Screening Presenting symptoms: (!) Temperature greater than 100.4 F/38.0 C, New or worsening cough, Runny nose, New shortness of breath, Other (Upper Respiratory) Exposure Screening Contact with someone with an infectious disease in the last month: No documented in this encounter Plan of Treatment Not on filedocumented as of this encounter Visit Diagnoses Not on filedocumented in this encounter
--- OUTSIDE RECORDS SUMMARY | 2022-01-23 11:05 | XMS_ITS | Encounter Summary ---
:1990 Author Organization [facility] Address [address] [place] [address] Care Team Providers Name Role Phone Unavailable Primary Care Provider Unavailable Reason for Visit Reason Comments Metrorrhagia Encounter Details Date Type Department Care Team Description 10/09/2019 Comprehensive Visit Department of Eun Ward M.D. Menstrual Irregularity (Primary Dx); Obstetrics and Simón Kinney Jr., M.D. [address] [place] [address] Polycystic Ovary Syndrome Gynecology in [address] [address] Social History Tobacco Use Types Packs/Day Years [...] 10/08/2019 relatives? How often do you attend pentecostal or samaritan 1 to 4 times per year 10/08/2019 services? Do you belong to any clubs or organizations such No 10/08/2019 as pentecostal groups, unions, fraternal or athletic groups, or [...] Sign Reading Time Taken Comments Blood Pressure 130/74 10/09/2019 2:08 PM CDT Pulse 88 10/09/2019 2:08 PM CDT Temperature 36.7 ??C (98.1 ??F) 10/09/2019 2:08 PM CDT Respiratory Rate - - Oxygen Saturation - - Inhaled Oxygen Concentration - - Weight 101 kg (222 lb 14.2 oz) 10/09/2019 2:08 PM CDT Height - - Body Mass Index 33.98 12/06/2011 2:28 PM CDT documented in this encounter H&P Notes Simón Kinney Jr., M.D. - 10/09/2019 2:00 PM CDT SUBJECTIVE CHIEF COMPLAINT/REASON FOR VISIT Consultation for irregular menstruation per Dr. Roman Barnard. HISTORY OF PRESENT ILLNESS Jeanette Marcelo is a 29 y.o. No obstetric history on file. female who presents to the clinicin consultation for irregular menstruation. Patient is a 1 para 1 who had difficult vaginal delivery about [address] Cisneros. She had irregular periods before then but since that time she really thinks things have a degenerated. She had not had a normal menstrual cycle for approximately year and then starting on September 11 bled for normal cycle but then continued to bleed for more than a week after that. She has problems with hair growth has to shave daily. Weight has actually decreased 60 70 lb over the last year. She is currently has some social stress as she is in a situation where she from her long-term relationship. She would like to consider future . Use of metformin in the past gave her extreme fatigue. There are no further concerns at this time. CURRENT MEDICATIONS Current Outpatient Medications Medication Sig Dispense Refill ??? albuterol (ACCUNEB) 2.5 mg /3 mL nebulizer solution Inhale 2.5 mg. ??? albuterol inhaler Inhale 2 puffs. ??? EPINEPHrine 0.3 mg/0.3 mL injection syringe Inject 0.3 mg intramuscularly. ??? famotidine (PEPCID) 20 mg tablet Take 20 mg by mouth. ??? ipratropium-albuteroL (DUONEB) 0.5-2.5 mg/3 mL nebulizer solution Inhale 3 mL. ??? LORazepam (ATIVAN) 0.5 mg tablet Take 0.5 mg by mouth. ??? multivitamin capsule Take 1 tablet by mouth daily. ??? polyethylene glycol (MIRALAX) 17 gram/dose oral powder Take 17 g by mouth. ??? amphetamine-dextroamphetamine (ADDERALL XR) 25 mg 24 hr capsule Take 25 mg by mouth daily. ??? famotidine (PEPCID) 20 mg tablet ??? HYDROcodone-acetaminophen (NORCO) 5-325 mg per tablet No current facility-administered medications for this visit. ALLERGIES/CONTRAINDICATIONS Allergies Allergen Reactions ??? Sertraline Other (see comments) REVIEW OF SYSTEMS Positive for hair growth weight loss irregular menstruation. All other pertinent systems reviewed and negative except per HPI. MEDICAL HISTORY No past medical history on file. She has a history of ulcerative colitis, she manages this with dietary modification currently. She has been treated in the past with her SSRIs for mental health concerns. She had a bad reaction to sertraline which gave her a manic episode after a couple days. She also tried metformin in the past for control of her menses and that made her very tired. SURGICAL HISTORY No past surgical history on file. Tonsils at age 5. SOCIAL HISTORY Social History Socioeconomic History ??? [...] week Gets together: Once a week Attends samaritan service: 1 to 4 times per year Active member of club or organization: No Attends meetings of clubs or organizations: Never Relationship status: Never ??? Intimate partner violence Fear of current or ex partner: No Emotionally abused: No Physically abused: No Forced sexual activity: No Other Topics Concern ??? Not on file Social History Narrative ??? Not on file Social History Substance and Sexual Activity Drug Use Not on file Social History Substance and Sexual Activity Alcohol Use ??? Frequency: Monthly or less ??? Drinks per session: 1 or 2 ??? Binge frequency: Never FAMILY HISTORY No family history on file. OBJECTIVE VITAL SIGNS BP 130/74 Pulse 88 Temp 36.7 ??C Wt 101 kg LMP 09/12/2019 BMI 33.98 kg/m?? PHYSICAL EXAMINATION General: Patient appears well groomed and well nourished. No acute distress. Oriented times three. Skin: Normal without any evidence of rash or lesions. Hirsuitism under the chin is noted. Abdomen: Soft and nontender. No masses, hepatosplenomegaly or hernias noted. No enlarged groin nodespalpable. Pelvis: Vagina and cervix appear normal without lesions, discharge or rashes. Uterus is anteverted, difficult to palpate, small, mobile and nontender. It appears normal on office ultrasound no adnexal masses are noted on ultrasound done transvaginally either. Adnexa are without masses or tenderness. Rectum: Deferred. Genitalia: External genitalia: Bartholin's, urethral, and Sulligent's glands within normal limits. ASSESSMENT / PLAN #1 Irregular menstruation PLAN: Will serve her symptoms are probably related to polycystic ovary syndrome but I do not think that has been fully evaluated. Laboratory evaluation today includes hemoglobin A1 c, glucose, FSH, DHEA-S, prolactin, TSH, free and total testosterone, and vitamin-D. #2 Hop Sorter Plan Patient advised that she needs to quit smoking and she is working on that and continue working on weight loss which is going well. Most likely she will benefit from oral contraceptives plus or minus Aldactone added to this. Continue weight loss will also help. Patient seems to understand plan to be comfortable with it. Followup PLAN: Will communicate with the patient after labs are return advised that these will take probably over week. Patient will contact the clinic with questions or concerns prior to this time. documented in this encounter Plan of Treatment Not on filedocumented as of this encounter Procedures Procedure Name Priority Date/Time Associated Comments Diagnosis PROLACTIN, S Routine 10/09/2019 3:03 Menstrual Results for PM CDT Irregularity this procedure Polycystic Ovary are in the Syndrome results section. DEHYDROEPIANDROSTERONE Routine 10/09/2019 3:03 Menstrual Re sults for SULFATE (DHEA-S) LEVEL, S PM CDT Irregu larity this procedure Polycystic Ovary are in the Syndrome results section. THYROID-STIMULATING Routine 10/09/2019 3:03 Menstrual Resul ts for HORMONE-SENSITIVE (S-TSH) PM CDT Irregu larity this procedure Polycystic Ovary are in the Syndrome results section. HEMOGLOBIN A1C, B Routine 10/09/2019 3:03 Menstrual Results for PM CDT Irregularity this procedure Polycystic Ovary are in the Syndrome results section. LUTEINIZING HORMONE (LH), S Routine 10/09/2019 3:03 Menstrual Results for PM CDT Irregularity this procedure Polycystic Ovary are in the Syndrome results section. FOLLICLE-STIM HORMONE (FSH), Routine 10/09/2019 3:03 Menstrual Results for S PM CDT Irregularity this procedure Polycystic Ovary are in the Syndrome results section. GLUCOSE, FASTING, S/P Routine 10/09/2019 3:03 Menstrual Res ults for PM CDT Irregularity this procedure Polycystic Ovary are in the Syndrome results section. 25-HYDROXYVITAMIN D2 AND D3, Routine 10/09/2019 3:02 Menstrual Results for S PM CDT Irregularity this procedure Polycystic Ovary are in the Syndrome results section. ESTRADIOL, S Routine 10/09/2019 3:02 Menstrual Results for PM CDT Irregularity this procedure Polycystic Ovary are in the Syndrome results section. TESTOSTERONE, TOT AND FR, S Routine 10/09/2019 3:02 Menstrual Results for PM CDT Irregularity this procedure Polycystic Ovary are in the Syndrome results section. documented in this encounter Results Hemoglobin A1c (10/09/2019 3:03 PM CDT) P athologist Signature Hemoglobin A1c, 5.0 4.2 - 5.6 10/09/2019 [place] B % 6:12 PM CDT Specimen Anatomical Collection Method Collection Time Receive d Time (Source) Location / / Volume Laterality Blood (Blood, 10/09/2019 3:03 PM 10/09/19 20 5:52 Venous) CDT PM CDT Simón Kinney Jr., M.D. LAB BLOOD ADD-ON Performing Organization Address City/State/ZIP Code Phon e Number [facility]- [address] [place] [address] [place] [address] System in [place] [address] Dehydroepiandrosterone Sulfate (DHEA-S) (10/09/2019 3:03 PM CDT) Component Value Ref Test Analysis Performed At [facility] gist Range Method Time Signature Dehydroepiandrosterone 272 45 - 295 10/10/2019 [facility] Sulfate, S mcg/dL 10:11 AM CDT Specimen Anatomical Collection Method Collection Time Receive d Time (Source) Location / / Volume Laterality Blood (Blood, 10/09/2019 3:03 PM 10/10/19 20 9:15 Venous) CDT AM CDT Simón Kinney Jr., M.D. LAB BLOOD ADD-ON Performing Organization Address City/[facility]/ZIP Code Phon e Number [facility] [address] [place], [place] [address] [place], [place] [address] [address] Laboratory Medicine and Pathology [address] [place] Glucose, Fasting (10/09/2019 3:03 PM CDT) P athologist Signature Glucose, P 75 70 - 100 10/09/2019 [place] mg/dL 6:13 PM CDT Specimen Anatomical Collection Method Collection Time Receive d Time (Source) Location / / Volume Laterality Blood (Blood, 10/09/2019 3:03 PM 10/09/19 20 5:52 Venous) CDT PM CDT Simón Kinney Jr., M.D. LAB BLOOD NON ADD-ON Performing Organization Address City/State/ZIP Code Phon e Number [facility]- [address] [place] [address] [place] [address] System in [place] [address] LH (Luteinizing Hormone) (10/09/2019 3:03 PM CDT) P athologist Signature Luteinizing 12.1 IU/L 10/10/2019 [facility] Hormone (LH) 7:53 AM CDT Comment: ----REFERENCE VALUE---- Premenopausal: 1.9-14.6 IU/L (Follicular) 12.2-118.0 IU/L (Midcycle) 0.7-12.9 IU/L (Luteal) Postmenopausal: 5.3-65.4 IU/L Specimen Anatomical Collection Method Collection Time Receive d Time (Source) Location / / Volume Laterality Blood (Blood, 10/09/2019 3:03 PM 10/10/19 20 6:48 Venous) CDT AM CDT Simón Kinney Jr., M.D. LAB BLOOD ADD-ON Performing Organization Address [facility] Phon e Number [facility] - [address] [place], [place] [address] [place] [address] Follicle-Stimulating Hormone (FSH), Serum (10/09/2019 3:03 PM CDT) athologist Signature Follicle-Stim 6.2 IU/L 10/10/2019 DT Hormone (FSH), 7:53 AM CDT S Comment: ----REFERENCE VALUE---- Premenopausal: 2.9-14.6 IU/L (Follicular) 4.7-23.2 IU/L (Midcycle) 1.4-8.9 IU/L (Luteal) Postmenopausal: 16.0-157.0 IU/L Specimen Anatomical Collection Method Collection Time Receive d Time (Source) Location / / Volume Laterality Blood (Blood, 10/09/2019 3:03 PM 10/10/19 20 6:48 Venous) CDT AM CDT Simón Kinney Jr., M.D. LAB BLOOD ADD-ON Performing Organization Address City/[facility] Phon e Number [facility] - [address] [place], [place] [address] [place], [place] [id number] [place] [address] S-TSH (Thyroid-Stimulating Hormone - Sensitive) (10/09/2019 3:03 PM CDT) athologist Signature TSH, Sensitive 0.6 0.3 - 4.2 10/09/2019 [place] mIU/L 6:23 PM CDT Comment: Biotin has been identified by the rosy kendrick as a potential interfering substance. ??Higher concentr ations of biotin may be found in multivitamins, hair/nail supple ments, and workout supplements. ??If the result does not [facility] clinical observations, repeat testing after patient refrains fr om the use of supplements for at least 12 hours. Specimen Anatomical Collection Method Collection Time Receive d Time (Source) Location / / Volume Laterality Blood (Blood, 10/09/2019 3:03 PM 10/09/19 20 5:52 Venous) CDT PM CDT Simón Kinney Jr., M.D. LAB BLOOD ADD-ON Performing Organization Address City/State/ZIP Code Phon e Number [facility]- [address] [place] [address] [place] [address] System in [place] [address] Prolactin (10/09/2019 3:03 PM CDT) athologist Signature Prolactin Total 8.3 4.8 - 23.3 10/10/2019 [facility] ng/mL 7:53 AM CDT Comment: ----ADDITIONAL INFORMATION---- The testing method is an electrochemilum inescence assay manufactured by [employer] and performed on the Edith system. Values obtained with different assay met hods or kits may be different and cannot be used inte rchangeably. Test results cannot be interpreted as ab solute evidence for the presence or absence of malignant disease. Specimen Anatomical Collection Method Collection Time Receive d Time (Source) Location / / Volume Laterality Blood (Blood, 10/09/2019 3:03 PM 10/10/19 20 6:48 Venous) CDT AM CDT Simón Kinney Jr., M.D. LAB BLOOD ADD-ON Performing Organization Address City/State/ZIP Code Phon e Number [facility] - [address] [place], [place] [address] [place] [address] Laboratories-[facility] [address] 25-Hydroxyvitamin D2 and D3 (10/09/2019 3:02 PM CDT) athologist Signature 25-Hydroxy D2 <4.0 ng/mL 10/15/2019 [facility] 9:20 AM CDT 25-Hydroxy D3 36 ng/mL 10/15/2019 [facility] 9:20 AM CDT 25-Hydroxy D 36 ng/mL 10/15/2019 [facility] Total 9:20 AM CDT Comment: ----REFERENCE VALUE---- 25-HYDROXY D TOTAL (D2+D3) Optimum level s in the healthy population are 20-50, patients with bone disease may benefit from higher levels within this r victoriano. ----ADDITIONAL INFORMATION---- This test was developed and its performa nce characteristics determined by [facility] in a manner consistent with CLIA requirements. This test has not been cleared or approved by the [place] and Drug Administration. Specimen Anatomical Collection Method Collection Time Receive d Time (Source) Location / / Volume Laterality Blood (Blood, 10/09/2019 3:02 PM 10/10/19 20 Venous) CDT 10:13 AM CDT Simón Kinney Jr., M.D. LAB BLOOD ADD-ON Performing Organization Address City/State/ZIP Code Phon e Number [facility] [address] [place] [address] CENTER [facility] [place] [address] Laboratory Medicine and Pathology [address] [place] (ABNORMAL) Testosterone, Total and Free (10/09/2019 3:02 PM CDT) athologist Signature Testosterone, 1.57 (H) 0.06 - 10/15/2019 [facility] Free, S 1.03 ng/dL 3:34 PM CDT Comment: ----ADDITIONAL INFORMATION---- Testing performed by [facility]. This test was developed and its performa nce characteristics determined by [facility] in a manner consistent with CLIA requirements. This test has not been cleared or approved by the [place] and Drug Administration. Testosterone, Total by Mass 56 8 - 60 ng/dL 0 2:11 PM CDT [facility] Spectrometry, Serum Comment: ----ADDITIONAL INFORMATION---- Testing performed by Liquid Chromatograp hy-Tandem Mass Spectrometry (LC-MS/MS). This test was developed and its performa nce characteristics determined by [facility] in a manner consistent with CLIA requirements. This test has not been cleared or approved by the [place] and Drug Administration. Specimen Anatomical Collection Method Collection Time Receive d Time (Source) Location / / Volume Laterality Blood (Blood, 10/09/2019 3:02 PM 10/10/19 20 8:56 Venous) CDT AM CDT Simón Kinney Jr., M.D. LAB BLOOD NON ADD-ON Performing Organization Address City/[facility] Phon e Number [facility] [address] [place] [phone] [address] [facility] [place] [address] Laboratory Medicine and Pathology [address] [place] [address] Dr. [place] Estradiol - (for men, children, and post-menopausal women) (10/09/2019 3:02 PM CDT) athologist Signature Estradiol, Mass 48 pg/mL 10/13/2019 [facility] Spectrometry, S 1:48 PM CDT Comment: ----REFERENCE VALUE---- Premenopausal: 15-350 (E2 levels vary wi quincy through the menstrual cycle.) Postmenopausal: <10 ----ADDITIONAL INFORMATION---- This test was developed and its performa nce characteristics determined by [facility] in a manner consistent with CLIA requirements. This test has not been cleared or approved by the [place] and Drug Administration. Specimen Anatomical Collection Method Collection Time Receive d Time (Source) Location / / Volume Laterality Blood (Blood, 10/09/2019 3:02 PM 10/10/19 20 8:16 Venous) CDT AM CDT Simón Kinney Jr., M.D. LAB BLOOD NON ADD-ON Performing Organization Address City/State/[facility] Code Phon e Number [facility] [address] [place], [place] [address] [facility] [place] [address] Laboratory Medicine and Pathology [address] [place] [address] Dr. [place] documented in this encounter Visit Diagnoses Diagnosis Menstrual Irregularity - Primary Polycystic Ovary Syndrome documented in this encounter
--- OUTSIDE RECORDS SUMMARY | 2022-01-23 11:05 | XMS_ITS | Encounter Summary ---
:1990 Author Organization [facility] Address [address] [place] [address] Care Team Providers Name Role Phone Unavailable Primary Care Provider Unavailable Encounter Details Date Type Department Care Team Description 03/26/2011 Hospital Encounter HX NO MAPPING Sheryl Hircsh M.D. [address] [place], [place] [address] (Wo rk) Social History Tobacco Use Types [...] 10/08/2019 relatives? How often do you attend rastafarian or mormon 1 to 4 times per year 10/08/2019 services? Do you belong to any clubs or organizations such No 10/08/2019 as rastafarian groups, unions, fraternal or athletic groups, or [...] 0 08/02/2009 documented as of this encounter Plan of Treatment Not on filedocumented as of this encounter Visit Diagnoses Not on filedocumented in this encounter
--- OUTSIDE RECORDS SUMMARY | 2022-01-23 11:05 | XMS_ITS | Encounter Summary ---
:1990 Author Organization [facility] Address [address] [place] [address] Care Team Providers Name Role Phone Unavailable Primary Care Provider Unavailable Encounter Details Date Type Department Care Team Description 10/15/2019 Orders Only Department of Obstetrics Simón Kinney Jr., and Gynecology in [place], [place] [address] [place] [id number] [place] [address] [phone] Social History Tobacco Use Types Packs/Day Years [...] How often do you attend religious or hindu 1 to 4 times per year 10/08/2019 [...]
--- OUTSIDE RECORDS SUMMARY | 2022-01-23 11:05 | XMS_ITS | Encounter Summary ---
:1990 Author Organization [facility] Address [address] [place] [address] Care Team Providers Name Role Phone Elsewhere, Pcp Primary Care Provider Unavailable Encounter Details Date Type Department Care Team Description 11/29/2021 Hospital Encounter Department of Laboratory Twyla Kinney Menorrhagia Medicine in Jr. Gallagher M.D. [place] [address] [address] (Wo rk) Social History Tobacco [...] 10/08/2019 relatives? How often do you attend mosque or yazidism 1 to 4 times per year 10/08/2019 services? Do you belong to any clubs or organizations such No 10/08/2019 as mosque groups, unions, fraternal or athletic groups, or [...] powder mouth. documented as of this encounter Plan of Treatment Not on filedocumented as of this encounter Procedures Procedure Name Priority Date/Time Associated Diagnosis Comme nts CBC WITHOUT Routine 11/29/2021 9:54 AM Menorrhagia Results f or this DIFFERENTIAL, B CDT procedure ar e in the results section. FERRITIN, S Routine 11/29/2021 9:54 AM Menorrhagia Results f or this CDT procedure are i n the [...] Organization Address City/State/ZIP Code Phon e Number [facility]- [address] [place] [address] [place] [address] System in [place] [address] (ABNORMAL) CBC without Differential (11/29/2021 9:54 AM CDT) Patholo gist Method Time Signature Hemoglobin 11.4 (L) [...] Organization Address City/State/ZIP Code Phon e Number [place] [address] [place] [address] [facility] [address] [place] [address] System in [address] documented in this encounter Visit Diagnoses Diagnosis Menorrhagia documented in this encounter Care Teams Special Agent Secret Service Relationship Specialty Start Date End Date Elsewhere, Pcp PCP - General Internal Medicine 03/17/21 documented as of this encounter
--- OUTSIDE RECORDS SUMMARY | 2022-01-23 11:05 | XMS_ITS | Encounter Summary ---
:1990 Author Organization [facility] Address [address] [place] [address] Care Team Providers Name Role Phone Elsewhere, Pcp Primary Care Provider Unavailable Encounter Details Date Type Department Care Team Description 11/29/2021 Orders Only Department of Obstetrics Simón Kinney Jr., and Gynecology in [place], [place] [address] [place] [address] [place] [address] [phone] Social History Tobacco Use Types Packs/Day Years [...] on filedocumented in this encounter Care Teams Operating Room Nurse Relationship Specialty Start Date End Date Elsewhere, Pcp PCP - General Internal Medicine 03/17/21 documented as of this encounter
--- OUTSIDE RECORDS SUMMARY | 2022-01-23 11:05 | XMS_ITS | Encounter Summary ---
:1990 Author Organization [facility] Address [address] [place] [address] Care Team Providers Name Role Phone Unavailable Primary Care Provider Unavailable Reason for Visit Reason Onset Date Comments Outpatient COVID-19 Testing 06/24/2019 Encounter Details Date Type Department Care Team Description 06/24/2019 External Outreach Department of Beena Copeland [facility] Gerson Baez M.D. Respiratory (Primary [facility] in [facility] [address] Dx) [place] [address] [address] [place], [place] [phone] (Work) [phone] Social History Tobacco Use Types Packs/Day Years [...] 10/08/2019 relatives? How often do you attend confucianism or holiness 1 to 4 times per year 10/08/2019 services? Do you belong to any clubs or organizations such No 10/08/2019 as confucianism groups, unions, fraternal or athletic groups, or [...] on file documented as of this encounter Progress Notes Beena Copeland M.D. - 06/24/2019 9:57 AM CDT Encounter created for the drive-through COVID-19 testing. documented in this encounter Plan of Treatment Not on filedocumented as of this encounter Procedures Procedure Name Priority Date/Time Associated Diagnosis Comme nts SARS CORONAVIRUS-2, Routine 06/24/2019 9:59 AM Infection Upper Results for this PCR CDT Respiratory procedure are i n the results section. documented in this encounter Results SARS Coronavirus-2, PCR (06/24/2019 9:59 AM CDT) Component Value Ref Range Test Analysis Performed Pathologis t Method Time At Signature SARS Swab, Nasopharynx 06/25/2019 DTL Coronavirus-2 8:49 PM Source CDT SARS Negative Negative 06/25/2019 DTL Coronavirus-2, 8:49 PM PCR CDT SARS Coronavirus This test was developed and its performance characteristics determined by 06/25/2019 DTL Interpretation [facility] in a manner cons istent with CLIA requirements. Independent review 8:49 PM by the U.S. Food and Drug Administration is pending. CDT Specimen Anatomical Collection Method Collection Time Receive d Time (Source) Location / / Volume Laterality Varies 06/24/2019 9:59 AM 0 2:47 (Nasopharynx) CDT PM CDT Beena Copeland M.D. LAB MICROBIOLOGY - GENERAL O RDERABLES Performing Organization Address City/State/ZIP Code Phon e Number [facility] - [address] [place], [place] [address] [facility] [place] [address] Laboratories-[facility] [address] documented in this encounter Visit Diagnoses Diagnosis Infection Upper Respiratory - Primary documented in this encounter
--- OUTSIDE RECORDS SUMMARY | 2022-01-23 11:05 | XMS_ITS | Encounter Summary ---
:1990 Author Organization [facility] Address [address] [place] [address] Care Team Providers Name Role Phone Unavailable Primary Care Provider Unavailable Reason for Visit Reason Onset Date Comments Outpatient COVID-19 Testing 07/14/2019 Encounter Details Date Type Department Care Team Description 07/14/2019 External Outreach Department of [facility] Ritika Walton Infection Upper Medicine, [place] Gaston Kapoor Respiratory (Primary Clinic, in [place], [address] [place] [address] Dx) [place], [place] [address] [facility] [address] [employer], [place] [phone] (Work) [phone] Social History Tobacco Use Types Packs/Day Years [...] 10/08/2019 relatives? How often do you attend restorationist or gnosticist 1 to 4 times per year 10/08/2019 services? Do you belong to any clubs or organizations such No 10/08/2019 as restorationist groups, unions, fraternal or athletic groups, or [...] documented as of this encounter Progress Notes Junito Walton P.A.-C. - 07/14/2019 10:35 AM CDT Encounter created for the drive-through COVID-19 testing. documented in this encounter Miscellaneous Notes Result Encounter Note - Melvi Estrella - 07/17/2019 10:39 AM CDT Result Letter sent to patient with negative COVID-19 result. documented in this encounter Plan of Treatment Not on filedocumented as of this encounter Procedures Procedure Name Priority Date/Time Associated Comments Diagnosis SARS CORONAVIRUS 2 Routine 07/14/2019 3:43 PM Res ults for this PCR DETECT, V CDT procedure are in the results section. documented in this encounter Results SARS Coronavirus 2 RNA Detection (07/14/2019 3:43 PM CDT) [facility] Method Time Signature SARS-CoV-2 Nasopharynx 07/17/2019 [facility] Specimen 10:37 AM CDT Source SARS-CoV-2 Undetected Undetected 07/17/2019 [facility] RNA by PCR 10:37 AM CDT Comment: SARS-CoV-2 RNA is not detected. ----ADDITIONAL INFORMATION---- Testing was performed using the kali SA RS-CoV-2 assay ([employer] on the kali 6800 System. Fact sheets for this Emergency Use Autho rization (EUA) assay can be found at the following links: For Healthcare Providers: https://www.fd a.gov/media/413662/download For Patients: https://www.fda.gov/media/ 419038/download Specimen Anatomical Collection Method Collection Time Receive d Time (Source) Location / / Volume Laterality Varies 07/14/2019 3:43 PM 0 7:03 CDT PM CDT Junito Walton P.A.-C. LAB MICROBIOLOGY - GENERAL O RDERABLES Performing Organization Address City/State/ZIP Code Phon e Number [facility] [address] [place], [place] [address] [facility] [place] [address] Laboratory Medicine and Pathology [address] [place] documented in this encounter Visit Diagnoses Diagnosis Infection Upper Respiratory - Primary documented in this encounter
--- OUTSIDE RECORDS SUMMARY | 2022-01-23 11:05 | XMS_ITS | Encounter Summary ---
:[address] [facility] Address [address] [place] [address] Care Team Providers Name Role Phone Unavailable Primary Care Provider Unavailable Encounter Details Date Type Department Care Team Description 03/26/2011 Hospital Encounter HX NO MAPPING Theodore Pedroza D.O. [address] [place] [id number] (Wo rk) Social History Tobacco Use Types [...] 10/08/2019 relatives? How often do you attend taoist or taoism 1 to 4 times per year 10/08/2019 services? Do you belong to any clubs or organizations such No 10/08/2019 as taoist groups, unions, fraternal or athletic groups, or [...]
--- OUTSIDE RECORDS SUMMARY | 2022-01-23 11:05 | XMS_ITS | Encounter Summary ---
:1990 Author Organization [facility] Address [address] [place] [address] Care Team Providers Name Role Phone Unavailable Primary Care Provider Unavailable Encounter Details Date Type Department Care Team Description 12/06/2011 Hospital Encounter HX [facility] Ian Pérez, MOLDING UTILITY WORKER, C.N.P. [address] [place] [address] (Wo rk) Social History Tobacco Use Types [...] 10/08/2019 relatives? How often do you attend gnosticism or sabianism 1 to 4 times per year 10/08/2019 services? Do you belong to any clubs or organizations such No 10/08/2019 as gnosticism groups, unions, fraternal or athletic groups, or [...] Sign Reading Time Taken Comments Blood Pressure 124/80 12/06/2011 2:28 PM CDT Pulse - - Temperature - - Respiratory Rate 18 12/06/2011 2:28 PM CDT Oxygen Saturation - - Inhaled Oxygen Concentration - - Weight 109 kg (240 lb 11.9 oz) 12/06/2011 2:28 PM CDT Height 172.5 cm (5' 7.91) 12/06/2011 2:28 PM CDT Body Mass Index 36.7 12/06/2011 2:28 PM CDT documented in this encounter Medications at Time of Discharge Medication Sig Dispensed Refills Start Date End Date albuterol inhaler Inhale 2 puffs. 0 08/02/2009 multivitamin capsule Take 1 tablet by mouth 0 daily. documented as of this encounter Progress Notes Ian Pérez, CHERI, RKentonN. - 12/06/2011 12:00 AM CDT [id number] CHIEF COMPLAINT/REASON FOR VISIT Multiple 1) Stomach pain. 2) Fatigue 3) Blood in urine. 4) Colitis with 5 BMs a day 6) Inability to lose weight. HISTORY OF PRESENT ILLNESS Ria is a 21-year-old woman [id number]-qcwm mom. She has 1 child. She states when she was with her little boy 3 years ago she was told she had stones in her gallbladder. According to medical record the gallbladder ultrasound is clear of any stones or sludge and her most recent urinalysis was clear of any blood and today's urinalysis is clear of blood. She also notes that she continues to have shortness of breath but also smokes about a pack of cigarettes a day. She uses her ProAir quite routinely. Her ACT score today is 17. She would like to quit smoking but has not quite figured out how to taper enough to quit. She is otherwise not needing any other further assistance she states She complains of irregular menses. History of control with the patch and she believes she may have had Depo-Provera in the past. Her weight stays high. She is 109 kg. She says that she eats everything healthy and routinely and is routinely active with her little boy. She has had care in multiple clinics, [place] and [place]. Her past primary care was Shannon Friend M.D. and I have also seen her for right upper quadrant abdominal pain in 2009, is when we actually repeated the upper ultrasound and it was normal. CURRENT MEDICATIONS All reviewed without change per EMR VITAL SIGNS All reviewed without change per EMR. ALLERGIES All reviewed without change per EMR PHYSICAL EXAM Alert, interactive, morbidly obese young woman with body mass index of 36.7. HEENT: Head is normocephalic. Eyes PERRLA. Nares moist. Throat is nonerythematous. Neck is supple. LUNGS: Clear. HEART: Rate regular rhythm regular S1, S2 heard without murmur. ABDOMEN: Soft and obese. No hepatosplenomegaly. There is acute tenderness throughout the upper right abdomen. No point tenderness or guarding or rebound pain. The obesity makes it very difficult to feel any sense of landmarks of the abdomen. MUSCULOSKELETAL: Without deformity or limitation of motion. Urinalysis, ketones are present. No glucose or bacteria. IMPRESSION/REPORT/PLAN 1) Right upper quadrant abdominal pain 2) History of dysuria with normal urine. 3) History of colitis, frequent stools 4) Tobacco abuse with asthma. Will run a CBC, metabolic panel and thyroid. She is reassured by the previous ultrasounds of the gallbladder. Her story keeps moving about with different concerns and issues. I am not quite sure where this might be leading to but it is multiple systems issues with really no supportive clinical data to show that where in a specific clinical issue other than varying pain. We also talked about her weight issue. I assured her that if she was maintaining low calories overall that she would be losing weight, asking her to keep a bit of food record and will get labs and will follow up for further consultation and discussion and she agrees with plan. Ian Pérez A.P.R.N. [facility] GegeNLeatha, C.DKentonE. Electronically Signed By: IAN PÉREZ On: 12/07/2011 11:48 AM Source: [facility] MHSDOLBEYNONRADSYS Document Id: [id number] documented in this encounter Nursing Notes Ian Pérez APRN, RKentonN. - 12/06/2011 2:47 PM CDT Asthma Assessment Asthma Assessment Entered On: 12/06/2011 14:47 CDT Performed On: 12/06/2011 14:47 CDT by IAN PÉREZ Asthma Control/Therapy Test Scores Asthma Control Test (ACT) Score : 17 Asthma Action Plan Provided/Reviewed : Provided to the patient Asthma Action Plan Copy : Scanned into EMR IAN PÉREZ - 12/06/2011 14:47 CDT Source: [facility] [employer] Document Id: [id number] documented in this encounter Miscellaneous Notes Miscellaneous - Ian Pérez APRN RNona - 12/13/2011 8:23 AM CDT Results Notification Document Contains Addenda Addendum by RHOIT GREGG on 13 December 2011 16:36:58 CDT Pt informed & will call back for another appt. Pain is somewhat better this week. Addendum by ROHIT GREGG on 13 December 2011 14:47:08 CDT LMTCB From: IAN PÉREZ To: ROHIT GREGG Sent: 12/13/2011 08:23:45 CDT ! Show up: 12/13/2011 13:23:45 [facility] Subject: Results Notification Actions: Notify patient of results Source: [facility] [employer] Document Id: [id number] Electronically signed by [facility] Am[facility] [id number] at 2016 9:00 PM CDT Miscellaneous - Ian Pérez APRN RKentonNKenton - 12/08/2011 12:56 PM CDT Results Notification Document Contains Addenda Addendum by ROHIT GREGG on 08 December 2011 18:14:04 CDT Pt informed From: IAN PÉREZ To: ROHIT GREGG Sent: 12/08/2011 12:56:48 CDT ! Show up: 12/08/2011 17:56:48 [facility] Subject: Results Notification Actions: Notify patient of results Source: [facility] POWERCHART Document Id: [id number] Electronically signed by [facility] Peer Financial Counselor [id number] at 2016 9:00 PM CDT Miscellaneous - Ian Pérez APRN RNona - 12/07/2011 11:49 AM CDT Results Notification Document Contains Addenda Addendum by ROHIT GREGG on 07 December 2011 12:30:15 CDT Message left on v.m. - normal lab From: IAN PÉREZ To: ROHIT GREGG Sent: 12/07/2011 11:49:10 CDT ! Show up: 12/07/2011 16:49:10 [facility] Subject: Results Notification Actions: Notify patient of results Source: [facility] POWERCHART Document Id: [id number] Electronically signed by [facility], [facility] Peer Financial Counselor [id number] at 2016 9:00 PM CDT Miscellaneous - Ian Pérez APRN RNona - 12/06/2011 3:46 PM CDT Ambulatory Depart Summary [facility] [address] [place] [id number] Visit Information Name: AMINA RIA TAY Visit Date: 12/06/2011 15:46:44 Attending Provider: IAN PÉREZ Primary Care Provider: ANA INMAN MD RIA ELIO JASVIR has been given the following list of medications: Your Medications It is important to take your medications as directed. Use a pill box or chart to help remind you to take your medications. Please let your doctor or nurse know if you have problems taking your medications. Medication/Strength Dose Route Frequency Indications/Special Instructions/Comments multivitamin (Multiple Vitamins oral tablet) 1 tab(s) Oral once a day albuterol (ProAir HFA 90 mcg/inh inhalation aerosol with adapter) 2 puff(s) Inhalation four times a day as needed for Allergy symptoms Attention: If you have any medications at home that are not on this list, DO NOT take them until youcontact your provider for clarification. Additional Information: Source: [facility] POWERCHART Document Id: [id number] Miscellaneous - Ian Pérez APRN, R.N. - 12/06/2011 3:46 PM CDT Ambulatory Patient Summary [facility] [address] [place] [id number] Visit Information Name: RIA MARCELO Current Date: 12/06/2011 15:46:44 Physicians Attending Provider: IAN PÉREZ [facility] Primary Care Provider: ANA INMAN MD Your Medications Here is a list of your medications. It is important to take your medications as directed. Use a pillbox or chart to help remind you to take your medications. Please let your doctor or nurse know if you have problems taking your medications. Medication/Strength Dose Route Frequency Indications/Special Instructions/Comments multivitamin (Multiple Vitamins oral tablet) 1 tab(s) Oral once a day albuterol (ProAir HFA 90 mcg/inh inhalation aerosol with adapter) 2 puff(s) Inhalation four times a day as needed for Allergy symptoms Attention: If you have any medications at home that are not on this list, DO NOT take them until youcontact your provider for clarification. 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 Hx of gallstones during . Hx of colitis . Has up to 5 BM'sa day. Consistency, normal. Ambulatory Intake Additional Information : Cannot l Respiratory Rate : 18/min Heart Rhythm : Regular Systolic Blood Pressure : 124mmHg Diastolic Blood Pressure : 80mmHg NIBP Mean : 95mmHg BP Location : Right upper extremity Blood Pressure Cuff Size : Regular Oxygen Therapy : Room air Height : 172.5cm(Converted to: 5ft 8inch(es), 67.91inch(es)) Actual Weight : 109.2kg(Converted to: 240lb 12oz) Weight Source : Standing scale Dosing Weight Clinic : 109.20kg Clinic BSA : 2.29 Body Mass Index : 36.70kg/m2 ROHIT GREGG - 12/06/2011 14:28 CDT Subjective Pain Symptoms : Yes Cardiovascular Symptoms : Dizziness, Fatigue GI Symptoms : Abdominal pain, Other: bloated feeling Genitourinary Symptoms : Decreased urine output, Hematuria ROHIT GREGG - 12/06/2011 14:28 CDT Pain Pain Assessment Grid Pain 1 Location : Abdomen (Comment: across mid abdomen [ROHIT GREGG - 12/06/2011 14:28 CDT] ) Laterality : Right (Comment: mostly right side [ROHIT GREGG - 12/06/2011 14:28 CDT] ) ROHIT GREGG - 12/06/2011 14:28 CDT Dependent Habits Tobacco Use/Currently Using : Yes Tobacco Use/Advised to Quit : Yes Exposure to Tobacco Smoke : Patient smokes Smoking Status : Current every day smoker ROHIT GREGG - 12/06/2011 14:28 CDT Tobacco Use Grid Type : Cigarettes Cigarette Use Packs/Day : 0.4 ROHIT GREGG L - 12/06/2011 14:28 CDT Allergy Allergies (Active) NKA Estimated Onset Date: Unspecified ; Created By: JOSE ARMANDO COLLINS LPN; Reaction Status: Active ; Category: Drug ; Substance: NKA ; Type: Allergy ; Updated By: JOSE ARMANDO COLLINS LPN; Reviewed Date: 12/06/2011 14:26 CDT Source: [facility] POWERCHART Document Id: [id number] documented in this encounter Plan of Treatment Not on filedocumented as of this encounter Procedures Procedure Name Priority Date/Time Associated Comments Diagnosis AUTOMATED Routine 12/06/2011 3:58 PM Results f or this DIFFERENTIAL, B CDT procedure ar e in the results section. CBC WITH Routine 12/06/2011 3:58 PM Results f or this DIFFERENTIAL, B CDT procedure ar e in the results section. THYROID-STIMULATING Routine 12/06/2011 3:58 PM Re sults for this HORMONE-SENSITIVE CDT procedure are in (S-TSH) the results section. BASIC METABOLIC Routine 12/06/2011 3:58 PM Result s for this PANEL, S/P CDT procedure are i n the results section. URINALYSIS WITH Routine 12/06/2011 3:01 PM Result s for this MICROSCOPIC CDT procedure are i n the results section. BACTERIAL CULTURE, Routine 12/06/2011 3:01 PM Res ults for this AEROBIC, URINE CDT procedure are in the results section. documented in this encounter Results (ABNORMAL) Automated Differential (12/06/2011 3:58 PM CDT) [facility] gist Method Time Signature Neutro % 68.5 44.0 - POWERCHART 69.0 Lymphocytes % 19.8 18.0 - POWERCHART 44.1 HX Lamar % 9.8 5.0 - 11.7 POWERCHART HX Eos % 1.5 0.8 - 3.1 POWERCHART HX Baso % 0.4 0.2 - 1.4 POWERCHART Absolute 8.62 (H) 1.70 - POWERCHART Neutrophils 7.00 109L Lymphocytes 2.50 0.90 - POWERCHART 2.90 X109L Monocytes 1.24 (H) 0.30 - POWERCHART 0.90 X109L Eosinophils 0.19 0.05 - POWERCHART 0.50 X109L Absolute 0.05 0.00 - POWERCHART Basophil 0.30 X109L Specimen Anatomical Collection Method Collection Time Receive d Time (Source) Location / / Volume Laterality Blood 12/06/2011 3:58 PM 201 2 3:58 CDT PM CDT Ian Pérez APRN, C.N.P. LAB BLOOD ADD-ON Performing Organization Address City/State/ZIP Code Phon e Number POWERCHART (ABNORMAL) CBC with Differential (12/06/2011 3:58 PM CDT) Analysis Performed At Patho logist Time Signature Leukocytes 12.6 (H) 3.4 - 10.5 POWERCHART X109L Erythrocytes 4.75 3.90 - POWERCHART 5.03 [id number] Hemoglobin 14.8 12.0 - POWERCHART 15.5 GDL Hematocrit 44.5 34.9 - POWERCHART 44.5 MCV 93.7 82.0 - POWERCHART 98.0 FL HX RDW 12.9 11.9 - POWERCHART 15.5 Platelet Count 199 150 - 450 POWERCHART X109L Specimen (Source) Anatomical Collection Method Collection Time Re ceived Time Location / / Volume Laterality Blood 12/06/2011 3:58 PM CDT Ian Pérez APRN, C.N.P. LAB BLOOD ADD-ON Performing Organization Address City/[facility]/ZIP Code Phon e Number POWERCHART (ABNORMAL) BMP (Basic Metabolic Panel) (12/06/2011 3:58 PM CDT) P athologist Signature BUN/Creatinine 21 POWERCHART Ratio Sodium, S 140 135 - 145 POWERCHART MMOLL Potassium, S 4.3 3.3 - 5.1 POWERCHART MMOLL Chloride, S 104 98 - 109 POWERCHART MMOLL CO2 Total 29 21 - 30 POWERCHART MMOLL Calcium, Total, 9.6 8.4 - 10.2 POWERCHART S MGDL BUN (Blood Urea 13 6 - 21 MGDL POWERCHART Nitrogen), S Comment: Reference value 0-11 months: No t Established Creatinine 0.6 0.5 - 1.2 MGDL POWERCHART Glucose, Fasting, S 66 (L) 70 - 99 MGDL POWERCH ART Comment: Fasting Range 70-99 mg/dL Non-Fasting Range 70-140 mg/dL Glucose 1 Hr OB ADA Guidelines state a glucose threshhol d value = or > 140 md/dL identifies approximately 80% of women with GDM, and the yield is further increased to 90% by using a cut off of > or = 130 mg/dL. ADA Diagnostic Criteria; -Fasting glucose > or = 126 mg/dL after an 8 hr fast OR -2-Hr glucose > or = to 200 mg/dL during a 75 gram oral load OR -Glucose casual (random) glucose > or = 200 mg/dL plus typical symptoms 3-Hour Glucose Tolerance Diagnostic Cut- offs (after an 8-hour fast): Fasting >=95 mg/dL 1 Hour >=180 mg/dL 2 Hour >=155 mg/dL 3 Hour >=140 mg/dL HXeGFR (MDRD) >60 >=60 [id number] POWERCHART Comment: The National Kidney Disease Education Pr ogram does not endorse the use of MDRD equation for estimating GFR in patients that meet any of the following criteria: Are not between the ages of 18 and 70 Are Have serious comorbid conditions Have extremes of body size Have extremes of muscle mass Have extremes of nutritional status Are non- or non- Miriam n Have normal kidney function eGFR Black/ >60 >=60 [id number] POWERCHART Specimen (Source) Anatomical Collection Method Collection Time Re ceived Time Location / / Volume Laterality Blood 12/06/2011 3:58 PM CDT Ian Pérez APRN, C.N.P. LAB BLOOD ADD-ON Performing Organization Address City/State/ZIP Code Phon e Number POWERCHART Thyroid-Stimulating Hormone-Sensitive (s-TSH) (12/06/2011 3:58 PM CDT) P athologist Signature TSH 1.30 0.30 - 5.00 POWERCHART (Thyrotropin) UIUML Specimen (Source) Anatomical Collection Method Collection Time Re ceived Time Location / / Volume Laterality Blood 12/06/2011 3:58 PM CDT Ian Pérez APRN, C.N.P. LAB BLOOD ADD-ON Performing Organization Address City/State/ZIP Code Phon e Number POWERCHART (ABNORMAL) Urinalysis, Complete, Includes Microscopic (12/06/2011 3:01 PM CDT) Patholo gist Method Time Signature Source Clean Void POWERCHART Urine HXUr Color YELLOW YELLOW POWERCHART Glucose Negative Negative POWERCHART HXBILIRUBIN Negative Negative POWERCHART Ketones, QL(U) 15 (A) Negative POWERCHART Specific >=1.030 >=1.030 POWERCHART [place], POCT, U pH, POCT, Urine 5.5 8.5 POWERCHART Protein, Ur, Dip Negative Negative POWERCHART Urobilinogen 0.2 1.0 POWERCHART HXNITRITE Negative Negative POWERCHART HXBLOOD Negative Negative POWERCHART Leukocyte Negative Negative POWERCHART Esterase HXUr WBC 5-10 (A) 0 - 5 POWERCHART Red Blood Cell 0-3 0 - 3 POWERCHART Clump, Urine HXUr Bacteria Few (A) Negative POWERCHART HXUr Epithelial Moderate Negative POWERCHART HX MUCOUS Moderate Negative POWERCHART THREADS HX Ur Casts None Seen None Seen POWERCHART Crystals None Seen None Seen POWERCHART Specimen (Source) Anatomical Collection Method Collection Time Re ceived Time Location / / Volume Laterality Urine 12/06/2011 3:01 PM CDT Ian Pérez APRN, C.N.P. LAB URINE ORDERABLES Performing Organization Address City/State/ZIP Code Phon e Number POWERCHART (ABNORMAL) Bacterial Culture, Aerobic, Urine (12/06/2011 3:01 PM CDT) Analysis Performed At Path logist Time Signature Bacterial (POSITIVE POWERCHART Culture, ) Aerobic, Urine Comment: Streptococcus agalactiae (Group B Strep) isolates that are Sensitive to Erythromycin should be treated as Resist ant, and Erythromycin should NOT be used as a drug of choice for treatment per [employer] ux Technical Bulletin. HXPre GPC POWERCHART Comment: <10,000 cfu/mL Gram Positive Cocci No further work-up. HXFinal GPC POWERCHART Comment: <10,000 cfu/mL Gram Positive Cocci No further work-up. Specimen Anatomical Collection Method Collection Time Receive d Time (Source) Location / / Volume Laterality Urine 12/06/2011 3:01 PM 2 3:01 CDT PM CDT Ian Pérez APRN, C.N.P. LAB MICROBIOLOGY - GENERAL ORDERABLES Performing Organization Address City/State/ZIP Code Phon e Number POWERCHART documented in this encounter Visit Diagnoses Not on filedocumented in this encounter
--- OUTSIDE RECORDS SUMMARY | 2022-01-23 11:05 | XMS_ITS | Encounter Summary ---
:1990 Author Organization [facility] Address [address] [place] [address] Care Team Providers Name Role Phone Elsewhere, Pcp Primary Care Provider Unavailable Reason for Referral Outpatient (Routine) - Closed Specialty Diagnoses / Procedures Referred By Contact Refer red To Contact Obstetrics and Diagnoses Menorrhagia Simón Kinney [facility] Berto Ferreira M.D. [address] [place] [address] Referral ID Status Reason Start Date Expiration Date Visits Requ ested Visits Authorized [id number] Closed 11/08/2021 11/08/2022 1 1 Reason for Visit Reason Comments Polycystic Ovary Syndrome Menometrorrhagia Appointment Request (Routine) - Closed Specialty Diagnoses / Procedures Referred By Contact Refer red To Contact Obstetrics and Gynecology Referral ID Status Reason Start Date Expiration Date Visits Requ ested Visits Authorized [id number] Closed 02/18/2021 02/18/2022 1 1 Encounter Details Date Type Department Care Team Description 11/08/2021 Office Visit Department of Obstetrics Simón Kinney Jr., Menorrhagia and Gynecology in [place], [place] [address] [place] [phone] (Wo rk) Social History Tobacco Use Types Packs/Day Years Used Date Smoking Tobacco: Every Day Cigarettes 0.5 Smokeless Tobacco: Never Tobacco Cessation: Ready to Quit: Yes; C ounseling Given: Yes Alcohol Use Standard Drinks/Week Comments [...] 10/08/2019 relatives? How often do you attend congregation or buddhism 1 to 4 times per year 10/08/2019 services? Do you belong to any clubs or organizations such No 10/08/2019 as congregation groups, unions, fraternal or athletic groups, or [...] Sign Reading Time Taken Comments Blood Pressure 124/78 11/08/2021 9:17 AM CDT Pulse - - Temperature - - Respiratory Rate - - Oxygen Saturation - - Inhaled Oxygen Concentration - - Weight 117 kg (258 lb 6.1 oz) 11/08/2021 9:17 AM CDT Height - - Body Mass Index 39.39 12/06/2011 2:28 PM CDT documented in this encounter Progress Notes Simón Kinney Jr., M.D. - 11/08/2021 9:15 AM CDT SUBJECTIVE CHIEF COMPLAINT/REASON FOR VISIT Irregular menstruation. HISTORY OF PRESENT ILLNESS Jeanette Marcelo is a 31 y.o. female who presents to the clinic for irregular menstrual cycles. Since April, she has been struggling with irregular menstrual cycles. It has been significant bleeding on and off again with significant clots. She has not been on control for quite some time. She has not had much in the way of cramping. She last had intercourse 2 weeks ago. CBC was checked last week and showed a mildly low Hgb at 11.8 and ferritin was not completed. She has met with an coke worker due to hypoglycemia and weight gain. She does have a history of hirsutism and struggles with this. She has been following up with [facility] for this. She is still smoking, about 1/2 pack a day. She did have a Pap smear last week and HPV was positive,but Pap smear has not resulted yet. She plans to follow up with this at [facility]. She is sexually active, but not in a permanent relationship. There are no further concerns at this time. ALLERGIES/CONTRAINDICATIONS Allergies Allergen Reactions Bee Venom Protein (Honey Bee) Other (see comments) Spironolactone Other (see comments) Patient felt weak, passed out and was transported to EMERGENCY DEPARTMENT Food Extracts Rash mangos and cashews Sertraline Other (see comments) OBJECTIVE VITAL SIGNS BP 124/78 Wt 117 kg LMP (LMP Unknown) BMI 39.39 kg/m?? PHYSICAL EXAMINATION General: Patient appears well groomed and well nourished. No acute distress. Oriented times three. Pelvis: Vagina and cervix appear normal without lesions, discharge or rashes. Uterus is anteverted, small, mobile and nontender. Adnexa are without masses or tenderness. Please note that medical management specialist, Sandi Sher, was present as lehr attendant for pelvic exam. Rectum: Deferred. Genitalia: External genitalia: Bartholin's, urethral, and Surprise's glands within normal limits. ASSESSMENT / PLAN #1 Menorrhagia Overview: Will treat with Provera 10 mg once daily for 14 days. Discussed she should expect her period to comeafter finishing Provera. Discussed she may spot while on this medication. I would like to see her atthe end of her bleeding for a pelvic ultrasound. Discussed possible treatment with control pills or IUD following the Provera. Orders: - Obstetrics and Gynecology office visit (clinic); Future; Expected date: 11/29/2021 - medroxyPROGESTERone (PROVERA) 10 mg tablet; Take 1 tablet (10 mg total) by mouth daily. Expect a period within 1 week of stopping medication., Starting Sun11/08/2021, Normal #2 Followup PLAN: Patient will contact the clinic with questions or concerns prior to this time. This document serves as a record of services personally performed by Simón Kinney MD. It was created on their behalf by Sandi Sher, a trained medical management specialist. The creation of this record is based onthe scribe's personal observations and the provider's statements to them. This document has been [facility] ked and approved by the attending provider. documented in this encounter Plan of Treatment Scheduled Referrals Name Type Priority Associated Diagnoses Order S chedule Obstetrics and Outpatient Referral Routine Menorrhagia Expect ed: Gynecology office 11/29/2021 , visit (clinic) Expires: 02/08/2023 documented as of this encounter Visit Diagnoses Diagnosis Menorrhagia documented in this encounter Care Teams Salvage Diver Relationship Specialty Start Date End Date Elsewhere, Pcp PCP - General Internal Medicine 03/17/21 documented as of this encounter
--- OUTSIDE RECORDS SUMMARY | 2022-01-23 11:06 | XMS_ITS | Encounter Summary ---
:1990 Author Organization [facility] Address [address] [place] [address] Care Team Providers Name Role Phone Unavailable Primary Care Provider Unavailable Encounter Details Date Type Department Care Team Description 03/11/2009 Hospital Encounter HX [facility] Nikos Allred M.D. Social History Tobacco Use Types Packs/Day Years [...] 10/08/2019 relatives? How often do you attend synagogue or hinduism 1 to 4 times per year 10/08/2019 services? Do you belong to any clubs or organizations such No 10/08/2019 as synagogue groups, unions, fraternal or athletic groups, or [...] minutes do you engage in exercise at is 100 min 10/08/2019 level? Stress Answer [...]
--- OUTSIDE RECORDS SUMMARY | 2022-01-23 11:06 | XMS_ITS | Encounter Summary ---
:1990 Author Organization [facility] Address [address] [place] [address] Care Team Providers Name Role Phone Unavailable Primary Care Provider Unavailable Encounter Details Date Type Department Care Team Description 02/16/2009 Hospital Encounter HX [facility] Sonia Friend M.D. [address] [place], [place] [address] Social History Tobacco Use Types Packs/Day Years [...] 10/08/2019 relatives? How often do you attend sikh or taoism 1 to 4 times per year 10/08/2019 services? Do you belong to any clubs or organizations such No 10/08/2019 as sikh groups, unions, fraternal or athletic groups, or [...]
--- OUTSIDE RECORDS SUMMARY | 2022-01-23 11:06 | XMS_ITS | Encounter Summary ---
:1990 Author Organization [facility] Address [address] [place] [address] Care Team Providers Name Role Phone Unavailable Primary Care Provider Unavailable Encounter Details Date Type Department Care Team Description 05/13/2009 Hospital Encounter HX [facility] ED Adam Franks, R.N. [address] [place] [address] (Wo rk) Social History Tobacco Use [...] How often do you attend congregation or restorationist 1 to 4 times per [...]
--- OUTSIDE RECORDS SUMMARY | 2022-01-23 11:06 | XMS_ITS | Encounter Summary ---
:1990 Author Organization [facility] Address [address] [place] [address] Care Team Providers Name Role Phone Unavailable Primary Care Provider Unavailable Encounter Details Date Type Department Care Team Description 05/13/2009 Hospital Encounter HX [facility] Nikos Allred [...] 10/08/2019 relatives? How often do you attend orthodoxy or zoroastrianism 1 to 4 times per year 10/08/2019 services? Do you belong to any clubs or organizations such No 10/08/2019 as orthodoxy groups, unions, fraternal or athletic groups, or [...]
--- OUTSIDE RECORDS SUMMARY | 2022-01-23 11:06 | XMS_ITS | Encounter Summary ---
:1990 Author Organization [facility] Address [address] [place] [address] Care Team Providers Name Role Phone Unavailable Primary Care Provider Unavailable Encounter Details Date Type Department Care Team Description 02/09/2009 Hospital Encounter HX [facility] Sonia Friend M.D. [address] [place], [place] [address] Social History Tobacco Use [...] 10/08/2019 relatives? How often do you attend amish or jehovah's witness 1 to 4 times per year 10/08/2019 services? Do you belong to any clubs or organizations such No 10/08/2019 as amish groups, unions, fraternal or athletic groups, or [...]
--- OUTSIDE RECORDS SUMMARY | 2022-01-23 11:06 | XMS_ITS | Encounter Summary ---
:1990 Author Organization [facility] Address [address] [place] [address] Care Team Providers Name Role Phone Unavailable Primary Care Provider Unavailable Encounter Details Date Type Department Care Team Description 02/10/2003 Hospital Encounter HX [facility] Florentino Grewal W, P.A. [address] [place] [address] (Wo rk) Social History Tobacco Use Types [...] 10/08/2019 relatives? How often do you attend caodaism or church 1 to 4 times per year 10/08/2019 services? Do you belong to any clubs or organizations such No 10/08/2019 as caodaism groups, unions, fraternal or athletic groups, or [...]
--- OUTSIDE RECORDS SUMMARY | 2022-01-23 11:06 | XMS_ITS | Encounter Summary ---
:1990 Author Organization [facility] Address [address] [place] [address] Care Team Providers Name Role Phone Unavailable Primary Care Provider Unavailable Encounter Details Date Type Department Care Team Description 12/04/2006 Hospital Encounter HX [facility] Celia Palm M.D. [address] [place] [phone] (Wo rk) Social History Tobacco [...] How often do you attend tenriism or yazdanism 1 to 4 times per year 10/08/2019 [...]
[2022-01-23 13:49] LABS: Basophils Absolute Auto 0.05 K/uL (0.00-0.30); Basophils Percent Auto 0.6 % (0.0-3.0); Eosinophils Percent Auto 1.2 % (0.0-7.0); Hematocrit 39.5 % (33.0-51.0); Hemoglobin* 12.2 gm/dL (12.0-16.0); Immature Granulocytes Abs Auto 0.02 K/uL (0.00-0.30); Lymphocytes Percent Auto 18.1 % (20-44); Mean Corpuscular HGB Conc 31 gm/dL (32-36); Mean Corpuscular Hemoglobin 28 pg (26-34); Mean Corpuscular Volume 92 fL (80-100); Neutrophils Percent Auto 72.9 % (42.0-72.0); Platelet Count* 224 K/uL (140-440); RDW Coefficient of Variation % 15.9 % (11.5-15.5); Red Blood Count 4.31 m/uL (4.00-5.20); White Blood Count* 8.43 K/uL (4.50-11.00)
[2022-01-23 13:53] LABS: Slide Review Reflex No
== END 2022-01-23 10:21 | disposition home or self-care (01) ==
LOC: KYNREF 10:28
PROVIDERS: PCP Nurse Practitioner Family; Visit Provider Nurse Practitioner Family
DX: J02.9 Acute pharyngitis, unspecified (principal)
CPT/HCPCS: 36415; 85025

== ENCOUNTER 2022-03-16 14:59 | Outpatient (CLI) | payer OTHER, SELFPAY ==
--- OUTSIDE RECORDS SUMMARY | 2022-03-16 15:02 | XMS_ITS | Encounter Summary ---
:1990 Author Organization [facility] Address [address] [place] [address] Care Team Providers Name Role Phone Unavailable Primary Care Provider Unavailable Encounter Details Date Type Department Care Team Description 10/15/2019 Orders Only Department of Simón Kinney Polycystic Ovary Obstetrics and [place] Ferreira Syndrome (Primary Dx) Gynecology in [address] [place], [place] [address] [facility] [address] [place], [place] [phone] (Work) [phone] Social History Tobacco Use Types Packs/Day Years [...] 10/08/2019 relatives? How often do you attend islam or moravian 1 to 4 times per year 10/08/2019 services? Do you belong to any clubs or organizations such No 10/08/2019 as islam groups, unions, fraternal or athletic groups, or [...]
--- OUTSIDE RECORDS SUMMARY | 2022-03-16 15:02 | XMS_ITS | Clinical Summary ---
:1990 Author Organization [facility] Address [address] [place] [address] Care Team Providers Name Role Phone Elsewhere, Pcp Primary Care Provider Unavailable Source Comments Patient records contain information from all sites at [facility]. For routine questions regarding patient records, call [phone] during business hours, M-F 8:00 AM - 5:00 PM Central Time. Record requests for emergency care only can be directed to [phone] at any time.[facility] Allergies Active Allergy Reactions Severity Noted Date [...] Administrative Purpose Exam 06/05/2014 Overview: Compliant, stable [place] 5-325, 20 tab/month Adderall XR 25 mg, 30 tab/month Asthma 04/25/2006 Immunizations Name Administration Dates Next Due 4vHPV [...] 10/08/2019 relatives? How often do you attend adventist or synagogue 1 to 4 times per year 10/08/2019 services? Do you belong to any clubs or organizations such No 10/08/2019 as adventist groups, unions, fraternal or athletic groups, or [...] 36.9 ??C (98.4 ??F) 03/17/2021 4:00 PM ACCOUNTING SYSTEMS MANAGER Respiratory Rate 16 11/29/2021 8:45 AM CDT Oxygen Saturation 97% 03/17/2021 7:15 PM ACCOUNTING SYSTEMS MANAGER Inhaled Oxygen Concentration - - Weight 118 [...] or Tdap) Tobacco Cessation counseling 11/29/2022 11/29/2021 Insurance Payer Benefit Plan / Subscriber ID Effective Phone Address T ype Group Dates [place] [employer] [id number] 2018-[place] [address] Medicaid HMO [place] [address] [place] [id number] Care Teams Regulatory Product Manager Relationship Specialty Start Date End Date Elsewhere, Pcp PCP - General Internal Medicine 03/17/21
--- OUTSIDE RECORDS SUMMARY | 2022-03-16 15:02 | XMS_ITS | Encounter Summary ---
:1990 Author Organization [facility] Address [address] [place] [address] Care Team Providers Name Role Phone Unavailable Primary Care Provider Unavailable Reason for Visit Reason Comments Earache Pain in bilateral ears Encounter Details Date Type Department Care Team Description 05/08/2020 Office Visit Urgent Care in [place] Otitis Media Right [place], [place] [address] (Primary Dx) [address] [place] [phone] Social History Tobacco Use [...] 10/08/2019 relatives? How often do you attend yazdanism or pentecostal 1 to 4 times per year 10/08/2019 services? Do you belong to any clubs or organizations such No 10/08/2019 as yazdanism groups, unions, fraternal or athletic groups, or [...] Comments Blood Pressure 126/74 05/08/2020 4:16 PM TAPE DUPLICATOR Pulse 89 05/08/2020 4:16 PM TAPE DUPLICATOR Temperature 36.7 ??C (98.1 ??F) 05/08/2020 4:16 PM TAPE DUPLICATOR Respiratory Rate 16 05/08/2020 4:16 PM TAPE DUPLICATOR Oxygen Saturation - - Inhaled Oxygen Concentration - - Weight 111 kg (245 lb 9.5 oz) 05/08/2020 4:16 PM TAPE DUPLICATOR Height - - Body Mass Index 37.44 [...] week Gets together: Once a week Attends pentecostal service: 1 to 4 times per year [...] within 1-2 weeks. Sooner if symptoms persist. DUPLICATOR documented in this encounter Plan of Treatment Not on filedocumented as of this encounter Visit Diagnoses Diagnosis Otitis Media Unspecified Right Ear - Ciara jacobsen documented in this encounter
--- OUTSIDE RECORDS SUMMARY | 2022-03-16 15:02 | XMS_ITS | Encounter Summary ---
:[address] [facility] Address [address] [place] [address] Care Team Providers Name Role Phone Unavailable Primary Care Provider Unavailable Encounter Details Date Type Department Care Team Description 10/15/2019 Orders Only Department of Obstetrics Simón Kinney Jr., and Gynecology in [place], [place] [address] [place] [address] [place] [address] [phone] Social History Tobacco Use Types Packs/Day Years [...] 10/08/2019 relatives? How often do you attend sabianist or anglican 1 to 4 times per year 10/08/2019 services? Do you belong to any clubs or organizations such No 10/08/2019 as sabianist groups, unions, fraternal or athletic groups, or [...]
--- OUTSIDE RECORDS SUMMARY | 2022-03-16 15:02 | XMS_ITS | Encounter Summary ---
:1990 Author Organization [facility] Address [address] [place] [address] Care Team Providers Name Role Phone Unavailable Primary Care Provider Unavailable Encounter Details Date Type Department Care Team Description 07/09/2020 Orders Only [facility] TH Sa shara Aldridge M.D. [address] [place], [place] [phone] (Wo rk) Social History [...] 10/08/2019 relatives? How often do you attend zoroastrian or cheondoism 1 to 4 times per year 10/08/2019 services? Do you belong to any clubs or organizations such No 10/08/2019 as zoroastrian groups, unions, fraternal or athletic groups, or [...]
--- OUTSIDE RECORDS SUMMARY | 2022-03-16 15:02 | XMS_ITS | Encounter Summary ---
:1990 Author Organization [facility] Address [address] [place] [address] Care Team Providers Name Role Phone Elsewhere, Pcp Primary Care Provider Unavailable Encounter Details Date Type Department Care Team Description 12/06/2021 Clinical Communication Department of Ruchi Syed, Obstetrics and R.N. Gynecology in [address] [phone] Social History Tobacco Use Types Packs/Day Years [...] How often do you attend hindu or anabaptist 1 to 4 times per year 10/08/2019 [...] signed by Dr. Kinney and faxed to [facility]. documented in this encounter Plan of Treatment Not on filedocumented as of this encounter Visit Diagnoses Diagnosis Menorrhagia - Primary documented in this encounter Care Teams Graduate Engineer Relationship Specialty Start Date End Date Elsewhere, Pcp PCP - General Internal Medicine 03/17/21 documented as of this encounter
--- OUTSIDE RECORDS SUMMARY | 2022-03-16 15:02 | XMS_ITS | Encounter Summary ---
:1990 Author Organization [facility] Address [address] [place] [address] Care Team Providers Name Role Phone Elsewhere, Pcp Primary Care Provider Unavailable Reason for Referral Outpatient (Routine) - Authorized Specialty Diagnoses / Procedures Referred By Contact Refer red To Contact Obstetrics and Simón Kinney SE Alethea Berto Ferreira M.D. [address], [place] [address] Referral ID Status Reason Start Date Expiration Date Visits V isits Requested Authorized [id number] Authorized 11/29/2021 11/28/2024 1 1 Outpatient (Routine) - Closed Specialty Diagnoses / Procedures Referred By Contact Refer red To Contact Procedures Simón Kinney Jr., [facility] [place] [facility] [place] Pelvis Transvaginal [place] [address], [place] [address] Referral ID Status Reason Start Date Expiration Date Visits Requ ested Visits Authorized [id number] Closed 11/29/2021 11/29/2022 1 1 Reason for Visit Reason Comments Menorrhagia Outpatient (Routine) - Closed Specialty Diagnoses / Procedures Referred By Contact Refer red To Contact Obstetrics and Diagnoses Menorrhagia Simón Kinney SE Gynecology [place] Ferreira [address], [place] [address] Referral ID Status Reason Start Date Expiration Date Visits Requ ested Visits Authorized [id number] Closed 11/08/2021 11/08/2022 1 1 Encounter Details Date Type Department Care Team Description 11/29/2021 Office Visit Department of Obstetrics Simón Kinney Jr., Menorrhagia and Gynecology in [place], [place] [address] [place] [phone] (Wo rk) Social History Tobacco [...] How often do you attend adventist or mormonism 1 to 4 times per year 10/08/2019 [...] behalf by Sandi Sher, a trained medical administrative. The creation of this record is based onthe scribe's personal observations and the provider's statements to them. This document has been [facility] ked and approved by the attending provider. [...] Organization Address City/State/ZIP Code Phon e Number [facility]- [address] [place] [address] [place] [address] System in [place] [address] (ABNORMAL) CBC without Differential (11/29/2021 9:54 AM CDT) [facility] gist Method Time Signature Hemoglobin 11.4 (L) [...] Organization Address City/State/ZIP Code Phon e Number [facility]- [address] [place] [address] [facility] [address] [place] [address] System in [address] [place] Pelvis Transvaginal (11/29/2021 9:33 [...] Menorrhagia documented in this encounter Care Teams Boomswing Operator Relationship Specialty Start Date End Date Elsewhere, Pcp PCP - General Internal Medicine 03/17/21 documented as of this encounter
--- OUTSIDE RECORDS SUMMARY | 2022-03-16 15:02 | XMS_ITS | Encounter Summary ---
:1990 Author Organization [facility] Address [address] [place] [address] Care Team Providers Name Role Phone Elsewhere, Pcp Primary Care Provider Unavailable Encounter Details Date Type Department Care Team Description 12/05/2021 Hospital Encounter Department of Laboratory Twyla Kinney Menorrhagia Medicine in Jr. Gallagher M.D. [place] [address] [phone] (Wo rk) Social History Tobacco [...] 10/08/2019 relatives? How often do you attend jainism or adventist 1 to 4 times per year 10/08/2019 services? Do you belong to any clubs or organizations such No 10/08/2019 as jainism groups, unions, fraternal or athletic groups, or [...] CBC without Differential (12/05/2021 4:35 PM CDT) [facility] gist Method Time Signature Hemoglobin 9.7 [...] Organization Address City/State/ZIP Code Phon e Number [place] [address] [place] [address] [facility] [address] [place] [address] System [address] documented in this encounter Visit Diagnoses Diagnosis Menorrhagia documented in this encounter Care Teams Electroplater Helper Relationship Specialty Start Date End Date Elsewhere, Pcp PCP - General Internal Medicine 03/17/21 documented as of this encounter
--- OUTSIDE RECORDS SUMMARY | 2022-03-16 15:02 | XMS_ITS | Encounter Summary ---
:1990 Author Organization [facility] Address [address] [place] [address] Care Team Providers Name Role Phone Elsewhere, Pcp Primary Care Provider Unavailable Encounter Details Date Type Department Care Team Description 12/05/2021 Orders Only Department of Simón Kinney (Primary Obstetrics and Jimmy Ferreira Dx) Gynecology in [address] [address] [place], [place] [phone] [address] (Work) [phone] Social History Tobacco Use Types Packs/Day Years [...] How often do you attend tenriism or yarsanism 1 to 4 times per year 10/08/2019 [...] CBC without Differential (12/05/2021 4:35 PM CDT) [facility] gist Method Time Signature Hemoglobin 9.7 (L) [...] Organization Address City/State/ZIP Code Phon e Number [address] [place] [address] [facility] [address] [place] [address] System in [address] documented in this encounter Visit Diagnoses Diagnosis Menorrhagia - Primary documented in this encounter Care Teams Well Point Pumping Supervisor Relationship Specialty Start Date End Date Elsewhere, Pcp PCP - General Internal Medicine 03/17/21 documented as of this encounter
--- OUTSIDE RECORDS SUMMARY | 2022-03-16 15:02 | XMS_ITS | Encounter Summary ---
:1990 Author Organization [facility] Address [address] [place] [address] Care Team Providers Name Role Phone Elsewhere, Pcp Primary Care Provider Unavailable Encounter Details Date Type Department Care Team Description 11/29/2021 Hospital Encounter Department of Laboratory Twyla Kinney Menorrhagia Medicine in Jr. Gallagher M.D. [place] [address] [phone] (Wo rk) Social History Tobacco [...] 10/08/2019 relatives? How often do you attend zoroastrianism or catholic 1 to 4 times per year 10/08/2019 services? Do you belong to any clubs or organizations such No 10/08/2019 as zoroastrianism groups, unions, fraternal or athletic groups, or [...] Address City/State/ZIP Code Phon e Number [facility]- [address] [place] [address] [place] [address] System in [place] [address] (ABNORMAL) CBC without Differential [...] Organization Address City/State/ZIP Code Phon e Number [place] [address] [place] [address] [facility] [address] [place] [address] System [address] documented in this encounter Visit Diagnoses Diagnosis Menorrhagia documented in this encounter Care Teams Marketing Performance Analyst Relationship Specialty Start Date End Date Elsewhere, Pcp PCP - General Internal Medicine 03/17/21 documented as of this encounter
--- OUTSIDE RECORDS SUMMARY | 2022-03-16 15:02 | XMS_ITS | Encounter Summary ---
:1990 Author Organization [facility] Address [address] [place] [address] Care Team Providers Name Role Phone Elsewhere, Pcp Primary Care Provider Unavailable Reason for Visit Reason Comments Hypoglycemia Encounter Details Date Type Department Care Team Description 03/17/2021 Emergency [facility] Diego Manzo Ulysses poglycemia (Primary Emergency Department D, M.D. Dx) [address] [place] [address] [address] [place] [phone] (Wo rk) Social History [...] How often do you attend pentecostalism or zoroastrianism 1 to 4 times per [...] Comments Blood Pressure 138/90 03/17/2021 7:15 PM ELECTRONICS COMMODITY MANAGER Pulse 88 03/17/2021 7:15 PM ELECTRONICS COMMODITY MANAGER Temperature 36.9 ??C (98.4 ??F) 03/17/2021 4:00 PM ELECTRONICS COMMODITY MANAGER Respiratory Rate 16 03/17/2021 7:15 PM ELECTRONICS COMMODITY MANAGER Oxygen Saturation 97% 03/17/2021 7:15 PM ELECTRONICS COMMODITY MANAGER Inhaled Oxygen Concentration - - Weight 118 kg (260 lb 2.3 oz) 03/17/2021 12:44 PM ELECTRONICS COMMODITY MANAGER Height - - Body Mass Index 39.66 12/06/2011 2:28 PM CDT documented in this encounter Discharge Instructions Discharge InstructionsDiego Manzo M.D. - 03/17/2021 7:40 PM ELECTRONICS COMMODITY MANAGER Patient was recommended for current symptoms to avoid taking excess sugar, recommended to reassessedwith recheck of her blood sugar on a serum a blood sample to determine blood sugar, potential treatment, and testing. TRONICS COMMODITY MANAGER AttachmentsThe following attachments cannot be sent through Care Everywhere. Hypoglycemia (Hebrew)documented in this encounter Medications at Time of [...] of Crohn's disease. History provided by: Patient independent beauty consultant needed/used: no REVIEW OF SYSTEMS Constitutional: Negative [...] Noted ??? Ulcerative Colitis Unspecified Without Complications ([facility]) 10/15/2019 ??? Polycystic Ovary Syndrome 10/15/2019 ??? 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 Administrative Purpose Exam 06/05/2014 ??? Asthma ([facility]) 04/25/2006 SURGICAL HISTORY History reviewed. No pertinent [...] ED COURSE ED Course as of 03/17/212115 [facility] Mar 17, [id number] CT scan negative for evidence of acute islet cell tumor. Patient denies any recurrent symptoms of hypoglycemia. We have paged endocrinology, disposition pending consultation. 1930 Discussed the case with the on-call die mounter 1936 Recommendation should the patient return to [...] ED Prescriptions None DISPOSITION Home or Self Nursing Home or Self Care Diego Manzo M.D. 03/17/212116 TRONICS COMMODITY MANAGER Marina Sterling R.N. - 03/17/2021 1:55 PM [...] a soda. Marina Sterling RKentonN. 03/17/21 1407 TRONICS COMMODITY MANAGER Estee Duncan R.N. - 03/17/2021 12:52 PM CST Here for new hypoglycemia for past week, this am was 52, now states up to 101 Estee Duncan R.N. 03/17/21 1253 TRONICS COMMODITY MANAGER documented in this encounter Plan of Treatment Not on filedocumented as of this encounter Procedures Procedure Name Priority Date/Time Associated Comments Diagnosis GLUCOSE POCT, B Routine 03/17/2021 7:21 Results f or this PM ELECTRONICS COMMODITY MANAGER procedure are i n the results section. GLUCOSE POCT, B Timed 03/17/2021 7:21 Results f or this PM ELECTRONICS COMMODITY MANAGER procedure are i n the results section. CT ABDOMEN PELVIS RAD - Semiurgent 03/17/2021 6:57 Res ults for this WITH IV CONTRAST (Fast; most ED PM ELECTRONICS COMMODITY MANAGER procedure are in patients; some the results inpatients) section. GLUCOSE POCT, B Routine 03/17/2021 6:06 Results f or this PM ELECTRONICS COMMODITY MANAGER procedure are i n the results section. GLUCOSE POCT, B Timed 03/17/2021 6:06 Results f or this PM ELECTRONICS COMMODITY MANAGER procedure are i n the results section. GLUCOSE POCT, B Timed 03/17/2021 5:19 Results f or this PM ELECTRONICS COMMODITY MANAGER procedure are i n the results section. GLUCOSE POCT, B Routine 03/17/2021 5:18 Results f or this PM ELECTRONICS COMMODITY MANAGER procedure are i n the results section. TEST, U STAT 03/17/2021 4:32 Results for this PM ELECTRONICS COMMODITY MANAGER procedure are i n the results section. GLUCOSE POCT, B STAT 03/17/2021 4:10 Results f or this PM ELECTRONICS COMMODITY MANAGER procedure are i n the results section. GLUCOSE POCT, B Routine 03/17/2021 4:04 Results f or this PM ELECTRONICS COMMODITY MANAGER procedure are i n the results section. CBC WITH STAT 03/17/2021 1:16 Results for this DIFFERENTIAL, B PM ELECTRONICS COMMODITY MANAGER procedure ar e in the results section. LACTATE, B/P STAT 03/17/2021 1:16 Results for this PM ELECTRONICS COMMODITY MANAGER procedure are i n the results section. HEMOGLOBIN A1C, B STAT 03/17/2021 1:16 Results for this PM ELECTRONICS COMMODITY MANAGER procedure are i n the results section. BASIC METABOLIC STAT 03/17/2021 1:16 Results f or this PANEL, S/P PM ELECTRONICS COMMODITY MANAGER procedure are i n the results section. documented in this encounter Results Glucose, POCT (03/17/2021 7:21 PM ELECTRONICS COMMODITY MANAGER) Analysis Performed At Patho logist Time Signature Glucose, POCT, 83 70 - 140 03/17/2021 PCLX B mg/dL 7:24 PM ELECTRONICS COMMODITY MANAGER Site Capillary 03/17/2021 PCLX 7:24 PM ELECTRONICS COMMODITY MANAGER Specimen Anatomical Collection Method Collection Time Receive d Time (Source) Location / / Volume Laterality Blood 03/17/2021 7:21 PM 7:25 ELECTRONICS COMMODITY MANAGER PM ELECTRONICS COMMODITY MANAGER Unknown Provider LAB POCT ORDERABLES-MANUAL Performing Organization Address City/State/ZIP Code Phon e Number POC [facility] [address] [place] [address] PCLX [facility] [place] [address] [facility] 200 [facility] Glucose, POCT (03/17/2021 7:21 PM ELECTRONICS COMMODITY MANAGER) Analysis Performed At Patho logist Time Signature Glucose, POCT, Collected DEFAULT 03/17/2021 SMLX B 7:21 PM ELECTRONICS COMMODITY MANAGER Specimen Anatomical Collection Method Collection Time Receive d Time (Source) Location / / Volume Laterality Blood (Blood, 03/17/2021 7:21 PM 03/17/20 7:21 Capillary) ELECTRONICS COMMODITY MANAGER PM ELECTRONICS COMMODITY MANAGER Diego Manzo M.D. LAB POCT ORDERABLES-MANUAL Performing Organization Address [facility]/[place]IP [facility] [place] Number [facility] - [address] [place], [place] [address] [facility] [place] [address] [facility] [address] Abdomen Pelvis with IV Contrast (03/17/2021 6:57 PM ELECTRONICS COMMODITY MANAGER) Anatomical Region Laterality Modality Abdomen, Pelvis, Abdominal RST LOS, N/A Comp uted Tomography, Computed Abdominal ARZ LOS, Abdominal FLA LOS Suhas ography Specimen (Source) Anatomical Collection Method Collection Time Re ceived Time Location / / Volume Laterality 03/17/2021 6:34 PM ELECTRONICS COMMODITY MANAGER Impressions 03/17/2021 7:03 PM ELECTRONICS COMMODITY MANAGER 1. No focal pancreatic mass to suggest etiology for patient's recurrent hypoglycemia. 2. Cystic lesions within both ovaries ma y represent multiple follicles. Consider pelvic ultrasound for further evaluation , if clinically indicated. Narrative 03/17/2021 7:03 PM ELECTRONICS COMMODITY MANAGER EXAM: ??CT ABDOMEN PELVIS WITH IV CONTRAST COMPARISON: ??None FINDINGS: ??Of note, initial images did not include a pancreatic phase, which would be helpful for workup of potential neuroendocrine neoplasm given clinical concern for pancreatic islet cell tumor. Findings were discussed with Dr. Diego Cisneros MD (pager [phone]) and it was agreed to re-inject to [...] tumor. Findings were discussed with Dr. Diego Cinseros MD (pager [phone]) and it was agreed to re-inject to [...] CT PROCEDURES Glucose, POCT (03/17/2021 6:06 PM ELECTRONICS COMMODITY MANAGER) Analysis Performed At Patho logist Time Signature Glucose, POCT, 91 70 - 140 03/17/2021 PCLX B mg/dL 6:17 PM ELECTRONICS COMMODITY MANAGER Site Capillary 03/17/2021 PCLX 6:17 PM ELECTRONICS COMMODITY MANAGER Specimen Anatomical Collection Method Collection Time Receive d Time (Source) Location / / Volume Laterality Blood 03/17/2021 6:06 PM 6:17 ELECTRONICS COMMODITY MANAGER PM ELECTRONICS COMMODITY MANAGER Unknown Provider LAB POCT ORDERABLES-MANUAL Performing Organization Address City/State/ZIP Code Phon e Number POC [facility] [address] [place] [address] [place] [address] [facility] 200 [facility] Glucose, POCT (03/17/2021 6:06 PM ELECTRONICS COMMODITY MANAGER) Analysis Performed At Patho logist Time Signature Glucose, POCT, Collected DEFAULT 03/17/2021 SMLX B 6:06 PM ELECTRONICS COMMODITY MANAGER Specimen Anatomical Collection Method Collection Time Receive d Time (Source) Location / / Volume Laterality Blood (Blood, 03/17/2021 6:06 PM 03/17/20 6:06 Capillary) ELECTRONICS COMMODITY MANAGER PM ELECTRONICS COMMODITY MANAGER Diego Manzo M.D. LAB POCT ORDERABLES-MANUAL Performing Organization Address City/[facility] Code Phon e Number [facility] - [address] [place], [place] [address] [facility] [place] [address] [facility] 200 [facility] Glucose, POCT (03/17/2021 5:19 PM ELECTRONICS COMMODITY MANAGER) Analysis [facility]formed [facility] Signature Glucose, POCT, Collected DEFAULT 03/17/2021 SMLX B 5:19 PM ELECTRONICS COMMODITY MANAGER Specimen Anatomical Collection Method Collection Time Receive d Time (Source) Location / / Volume Laterality Blood (Blood, 03/17/2021 5:19 PM 03/17/20 5:19 Capillary) ELECTRONICS COMMODITY MANAGER PM ELECTRONICS COMMODITY MANAGER Diego Manzo M.D. LAB POCT ORDERABLES-MANUAL Performing Organization Address City/State/[facility] Code Phon e Number [facility] - [address] [place], [place] [address] [place] [address] [facility] 200 [facility] Glucose, POCT (03/17/2021 5:18 PM ELECTRONICS COMMODITY MANAGER) Analysis Performed At Patho logist Time Signature Glucose, POCT, 85 70 - 140 03/17/2021 PCLX B mg/dL 5:21 PM ELECTRONICS COMMODITY MANAGER Site Capillary 03/17/2021 PCLX 5:21 PM ELECTRONICS COMMODITY MANAGER Specimen Anatomical Collection Method Collection Time Receive d Time (Source) Location / / Volume Laterality Blood 03/17/2021 5:18 PM 5:21 ELECTRONICS COMMODITY MANAGER PM ELECTRONICS COMMODITY MANAGER Unknown Provider LAB POCT ORDERABLES-MANUAL Performing Organization Address City/[facility]/ZIP Code Phon e Number [facility]OC [facility] [address] [place] [address] [facility]CL[place] [facility] [place] [address] [facility] 200 [facility] Test, Qualitative, Urine (03/17/2021 4:32 PM ELECTRONICS COMMODITY MANAGER) athologist Signature Negative 03/17/2021 ST[facility] Test, Urine 5:47 PM ELECTRONICS COMMODITY MANAGER Specimen Anatomical Collection Method Collection Time Receive d Time (Source) Location / / Volume Laterality Urine (Urine, 03/17/2021 4:32 PM 03/17/20 5:09 Midstream) ELECTRONICS COMMODITY MANAGER PM ELECTRONICS COMMODITY MANAGER Diego Manzo M.D. LAB URINE ORDERABLES Performing Organization Address City/[facility]/ZIP Code Phon e Number [facility] - [address] [place], [place] [address] [facility] [place] [address] [facility] [address] [facility] Glucose, POCT (03/17/2021 4:10 PM ELECTRONICS COMMODITY MANAGER) Analysis Performed At [facility] logist Time Signature Glucose, POCT, Collected DEFAULT 03/17/2021 SMLX B 4:10 PM ELECTRONICS COMMODITY MANAGER Specimen Anatomical Collection Method Collection Time Receive d Time (Source) Location / / Volume Laterality Blood (Blood, 03/17/2021 4:10 PM 03/17/20 21 4:10 Capillary) ELECTRONICS COMMODITY MANAGER PM ELECTRONICS COMMODITY MANAGER Diego Manzo M.D. LAB POCT ORDERABLES-MANUAL Performing Organization Address City/[facility]/ZIP [facility] Phon e Number [facility] - [address] [place], [place] [address] [facility] [place] [address] [facility] [address] [facility] Glucose, POCT (03/17/2021 4:04 PM ELECTRONICS COMMODITY MANAGER) athologist Signature Glucose, POCT, 97 70 - 140 03/17/2021 PCLX B mg/dL 4:13 PM ELECTRONICS COMMODITY MANAGER Site Venstick 03/17/2021 PCLX 4:13 PM ELECTRONICS COMMODITY MANAGER Specimen Anatomical Collection Method Collection Time Receive d Time (Source) Location / / Volume Laterality Blood 03/17/2021 4:04 PM 4:13 ELECTRONICS COMMODITY MANAGER PM ELECTRONICS COMMODITY MANAGER Unknown Provider LAB POCT ORDERABLES-MANUAL Performing Organization Address City/[facility]/ZIP [facility] Phon e Number [facility] [address] [place] [address] [place] [address] [facility] 200 [facility] Hemoglobin A1c (03/17/2021 1:16 PM ELECTRONICS COMMODITY MANAGER) athologist [facility] Hemoglobin A1c, 5.4 4.0 - 5.6 03/17/2021 [facility] B % 1:39 PM ELECTRONICS COMMODITY MANAGER Specimen Anatomical Collection Method Collection Time Receive d Time (Source) Location / / Volume Laterality Blood (Blood, 03/17/2021 1:16 PM 03/17/20 1:30 Venous) ELECTRONICS COMMODITY MANAGER PM ELECTRONICS COMMODITY MANAGER Xavi Jc M.D. LAB BLOOD ADD-ON Performing Organization Address City/[facility] Phon e Number [facility] - [address] [place], [place] [address] [facility] [place] [place] [address] [facility] 200 [facility] Lactate (03/17/2021 1:16 PM ELECTRONICS COMMODITY MANAGER) athologist [facility] Lactate, P 1.8 0.5 - 2.2 03/17/2021 [facility] mmol/L 1:40 PM ELECTRONICS COMMODITY MANAGER Specimen Anatomical Collection Method Collection Time Receive d Time (Source) Location / / Volume Laterality Blood (Blood, 03/17/2021 1:16 PM 03/17/20 1:24 Venous) ELECTRONICS COMMODITY MANAGER PM ELECTRONICS COMMODITY MANAGER Xavi Jc M.D. LAB BLOOD NON ADD-ON Performing Organization Address City/[facility] Phon e Number [facility] - [address] [place], [place] [address] [facility] [place] [address] [facility] 200 [facility] Basic Metabolic Panel (03/17/2021 1:16 PM ELECTRONICS COMMODITY MANAGER) athologist [facility] Potassium, P 4.2 3.6 - 5.2 03/17/2021 STMA mmol/L 1:43 PM ELECTRONICS COMMODITY MANAGER Sodium, P 140 135 - 145 03/17/2021 ST[facility] mmol/L 1:43 PM ELECTRONICS COMMODITY MANAGER Chloride, P 104 98 - 107 03/17/2021 [facility] mmol/L 1:43 PM ELECTRONICS COMMODITY MANAGER Bicarbonate, P 27 22 - 29 03/17/2021 [facility] mmol/L 1:43 PM ELECTRONICS COMMODITY MANAGER Anion Gap, P 9 7 - 15 03/17/2021 [facility] 1:43 PM ELECTRONICS COMMODITY MANAGER BUN (Blood Urea 8 6 - 21 03/17/2021 [facility] Nitrogen), P mg/dL 1:43 PM ELECTRONICS COMMODITY MANAGER Creatinine 0.61 0.59 - 03/17/2021 [facility] 1.04 mg/dL 1:43 PM ELECTRONICS COMMODITY MANAGER eGFR-Black/Afric >90 >=60 03/17/2021 [facility] an Puerto [place]ican mL/min/BSA 1:43 PM ELECTRONICS COMMODITY MANAGER Comment: ----ADDITIONAL INFORMATION---- Estimated GFR calculated using the 2009 CKD_EPI creatinine equation. eGFR Non-Black/ >90 >=60 mL/min/BSA 03/17/2021 1:43 PM ELECTRONICS COMMODITY MANAGER [facility] Comment: ----ADDITIONAL INFORMATION---- Estimated GFR calculated using the 2009 CKD_EPI creatinine equation. Calcium, Total, P 9.3 8.6 - 10.0 mg/dL 03/17/2021 1:43 PM ELECTRONICS COMMODITY MANAGER STMA Glucose, P 91 70 - 140 mg/dL 03/17/2021 1:43 PM ELECTRONICS COMMODITY MANAGER S TMA Specimen Anatomical Collection Method Collection Time Receive d Time (Source) Location / / Volume Laterality Blood (Blood, 03/17/2021 1:16 PM 03/17/20 1:24 Venous) ELECTRONICS COMMODITY MANAGER PM ELECTRONICS COMMODITY MANAGER Xavi Jc M.D. LAB BLOOD ADD-ON Performing Organization Address City/State/ZIP Code Phon e Number [facility] - [address] [place] [address] [place] [address] [facility] [address] [facility] (ABNORMAL) CBC with Differential, Blood (03/17/2021 1:16 PM ELECTRONICS COMMODITY MANAGER) [facility] gist Method Time Signature Hemoglobin 14.3 11.6 - 03/17/2021 ST[facility] 15.0 g/dL 1:28 PM ELECTRONICS COMMODITY MANAGER Hematocrit 43.7 35.5 - 03/17/2021 [facility] 44.9 % 1:28 PM ELECTRONICS COMMODITY MANAGER Erythrocytes 4.62 3.92 - 03/17/2021 [facility] 5.13 1:28 PM ELECTRONICS COMMODITY MANAGER x10(12)/L MCV 94.6 78.2 - 03/17/2021 [facility] 97.9 fL 1:28 PM ELECTRONICS COMMODITY MANAGER RBC Distrib Width 12.7 12.2 - 03/17/2021 [facility] 16.1 % 1:28 PM ELECTRONICS COMMODITY MANAGER Platelet Count 206 157 - 371 03/17/2021 [facility] x10(9)/L 1:28 PM ELECTRONICS COMMODITY MANAGER Leukocytes 9.6 3.4 - 9.6 03/17/2021 [facility] x10(9)/L 1:28 PM ELECTRONICS COMMODITY MANAGER Neutrophils 6.82 (H) 1.56 - 03/17/2021 [facility] 6.45 1:28 PM ELECTRONICS COMMODITY MANAGER x10(9)/L Lymphocytes 1.81 0.95 - 03/17/2021 [facility] 3.07 1:28 PM ELECTRONICS COMMODITY MANAGER x10(9)/L Monocytes 0.80 0.26 - 03/17/2021 [facility] 0.81 1:28 PM ELECTRONICS COMMODITY MANAGER x10(9)/L Eosinophils 0.16 0.03 - 03/17/2021 [facility] 0.48 1:28 PM ELECTRONICS COMMODITY MANAGER x10(9)/L Basophils 0.04 0.01 - 03/17/2021 [facility] 0.08 1:28 PM ELECTRONICS COMMODITY MANAGER x10(9)/L Specimen Anatomical Collection Method Collection Time Receive d Time (Source) Location / / Volume Laterality Blood (Blood, 03/17/2021 1:16 PM 03/17/20 1:24 Venous) ELECTRONICS COMMODITY MANAGER PM ELECTRONICS COMMODITY MANAGER Xavi Jc M.D. LAB BLOOD ADD-ON Performing Organization Address City/State/ZIP Code Phon e Number [facility] - [facility] [address] [place], [place] [address] [place] [address] [facility] [address] documented in this encounter Visit Diagnoses Diagnosis Hypoglycemia - Primary documented in this encounter Administered Medications Inactive Administered Medications - up to 3 most recent administrations Medication Order MAR Action Action Date Dose Rate Site iohexoL 300 mg iodine/mL solution Given 03/17/2021 6:33 PM ELECTRONICS COMMODITY MANAGER 2 00 mL 1-200 mL (OMNIPAQUE) 1-200 mL, intravenous, Once in imaging, contrast, Starting on Kelli 03/17/21 at 1832, For 1 dose, Imaging Protocol Orders, Dose per Radiant Medication Guidelines iohexoL 300 mg iodine/mL solution 1-200 mL Given 03/17/2021 6:51 PM ELECTRONICS COMMODITY MANAGER 140 mL (OMNIPAQUE) 1-200 mL, intravenous, Once in imaging, contrast, Starting on Kelli 03/17/21 at 1849, For 1 dose NaCl 0.9% infusion New Bag 03/17/2021 4:46 PM ELECTRONICS COMMODITY MANAGER 100 mL/hr 100 mL/hr 100 mL/hr, intravenous, Continuous, Starting on Kelli 03/17/21 at 1615 sodium chloride (PF) 0.9 % injection 1-1 00 mL Given 03/17/2021 6:33 PM ELECTRONICS COMMODITY MANAGER 50 mL 1-100 mL, intravenous, Once, On Kelli 03/17/21 at 1833, For 1 dose, Imaging Protocol Orders sodium chloride (PF) 0.9 % injection 1-1 00 mL Given 03/17/2021 6:50 PM ELECTRONICS COMMODITY MANAGER 50 mL 1-100 mL, intravenous, Once in imaging, contrast, Starting on Kelli 03/17/21 at 1850, For 1 dose documented in this encounter Active and Recently Administered Medications Times are shown in ELECTRONICS COMMODITY MANAGER. Scheduled Medication Order 03/15/2021 03/16/2021 03/17/2021 sodium [...] - Provider: Marta Hensley R.N. - Comment: [id number]) 1-200 mL, intravenous, Once in imaging, contrast, Starting on Kelli 03/17/21 at 1832, For 1 dose, Imaging Protocol Orders, Dose per Radiant Medication Guidelines iohexoL 300 mg iodine/mL solution 1-200 mL (OMNIPAQUE) (COMPLETE D) 185 (Given - Provider: Radha Farmer R.N. - Comment: Lot [id number]) 1-200 mL, intravenous, Once in imaging, contrast, Starting on Kelli 03/17/21 at 1849, For 1 dose sodium chloride (PF) 0.9 % injection 1-100 mL (COMPLETED) 1850 (Given - Provider: Radha Farmer, RNona) 1-100 mL, intravenous, Once in imaging, contrast, Starting on Kelli 03/17/21 at 1850, For 1 dose documented in this encounter Care Teams Oncology Nurse Navigator Relationship Specialty Start Date End Date Elsewhere, Pcp PCP - General Internal Medicine 03/17/21 documented as of this encounter
--- OUTSIDE RECORDS SUMMARY | 2022-03-16 15:02 | XMS_ITS | Encounter Summary ---
:1990 Author Organization [facility] Address [address] [place] [address] Care Team Providers Name Role Phone Unavailable Primary Care Provider Unavailable Encounter Details Date Type Department Care Team Description 10/29/2019 Orders Only Department of Obstetrics Simón Kinney Jr., and Gynecology in [place], [place] [address] [place] [id number] [place] [address] [phone] Social History Tobacco Use Types Packs/Day Years [...] 10/08/2019 relatives? How often do you attend christianity or hoahaoism 1 to 4 times per year 10/08/2019 services? Do you belong to any clubs or organizations such No 10/08/2019 as christianity groups, unions, fraternal or athletic groups, or [...]
--- OUTSIDE RECORDS SUMMARY | 2022-03-16 15:02 | XMS_ITS | Encounter Summary ---
:1990 Author Organization [facility] Address [address] [place] [address] Care Team Providers Name Role Phone Elsewhere, Pcp Primary Care Provider Unavailable Reason for Referral Outpatient (Routine) - Closed Specialty Diagnoses / Procedures Referred By Contact Refer red To Contact Obstetrics and Diagnoses Menorrhagia Simón Kinney [facility] Berto Ferreira M.D. [address] [place] [address] Referral ID Status Reason Start Date Expiration Date Visits Requ ested Visits Authorized [id number] Closed 11/08/2021 11/08/2022 1 1 Reason for Visit Reason Comments Polycystic Ovary Syndrome Menometrorrhagia Appointment Request (Routine) - Closed Specialty Diagnoses / Procedures Referred By Contact Refer red To Contact Obstetrics and Gynecology Referral ID Status Reason Start Date Expiration Date Visits Requ ested Visits Authorized [id number] Closed 02/18/2021 02/18/2022 1 1 Encounter Details Date Type Department Care Team Description 11/08/2021 Office Visit Department of Obstetrics Simón Kinney Jr., Menorrhagia and Gynecology in [place], [place] [address] [place] [phone] (Wo rk) Social History Tobacco [...] 10/08/2019 relatives? How often do you attend jain or pentecostal 1 to 4 times per year 10/08/2019 services? Do you belong to any clubs or organizations such No 10/08/2019 as jain groups, unions, fraternal or athletic groups, or [...] not completed. She has met with an linux systems administrator due to hypoglycemia and weight gain. She does have a history of hirsutism and struggles with this. She has been following up with [facility] for this. She is still smoking, about 1/2 pack a day. She did have a Pap smear last week and HPV was positive,but Pap smear has not resulted yet. She plans to follow up with this at [facility]. She is sexually active, but not in [...] masses or tenderness. Please note that medical accounting clerk, Sandi Sher, was present as employment programs analyst for pelvic exam. Rectum: Deferred. Genitalia: External genitalia: Bartholin's, urethral, and [place]'s glands within normal limits. ASSESSMENT / PLAN [...] behalf by Sandi Sher, a trained medical accounting clerk. The creation of this record is based onthe scribe's personal observations and the provider's statements to them. This document has been [facility] ked and approved by the attending provider. documented in this encounter Plan of Treatment Scheduled Referrals Name Type Priority Associated Diagnoses Order S chedule Obstetrics and Outpatient Referral Routine Menorrhagia Expect ed: Gynecology office 11/29/2021 , visit (clinic) Expires: 02/08/2023 documented as of this encounter Visit Diagnoses Diagnosis Menorrhagia documented in this encounter Care Teams Certified Procedural Coder Relationship Specialty Start Date End Date Elsewhere, Pcp PCP - General Internal Medicine 03/17/21 documented as of this encounter
--- OUTSIDE RECORDS SUMMARY | 2022-03-16 15:02 | XMS_ITS | Encounter Summary ---
:1990 Author Organization [facility] Address [address] [place] [address] Care Team Providers Name Role Phone Elsewhere, Pcp Primary Care Provider Unavailable Reason for Visit Outpatient (Routine) - Closed Specialty Diagnoses / Procedures Referred By Contact Refer red To Contact Procedures Simón Kinney Jr., [facility] Pelvis Transvaginal Orly [address] [place] [phone] Referral ID Status Reason Start Date Expiration Date Visits Requ ested Visits Authorized [id number] Closed 11/29/2021 11/29/2022 1 1 Encounter Details Date Type Department Care Team Description 11/29/2021 Silent Schedule Department of Obstetrics Freya Kinney Jr., and Gynecology in [place], [place] [address] [phone] (Wo rk) Social History Tobacco Use Types [...] How often do you attend congregation or pentecostalism 1 to 4 times per year 10/08/2019 [...] on filedocumented in this encounter Care Teams Diamond Sizer Relationship Specialty Start Date End Date Elsewhere, Pcp PCP - General Internal Medicine 03/17/21 documented as of this encounter
--- OUTSIDE RECORDS SUMMARY | 2022-03-16 15:02 | XMS_ITS | Encounter Summary ---
:1990 Author Organization [facility] Address [address] [place] [address] Care Team Providers Name Role Phone Elsewhere, Pcp Primary Care Provider Unavailable Encounter Details Date Type Department Care Team Description 11/29/2021 Orders Only Department of Obstetrics Simón Kinney Jr., and Gynecology in [place], [place] [address] [place] [address] [place] [address] [phone] Social History Tobacco Use Types Packs/Day Years [...] 10/08/2019 relatives? How often do you attend judaism or restorationist 1 to 4 times per year 10/08/2019 services? Do you belong to any clubs or organizations such No 10/08/2019 as judaism groups, unions, fraternal or athletic groups, or [...] on filedocumented in this encounter Care Teams Complaints Coordinator Relationship Specialty Start Date End Date Elsewhere, Pcp PCP - General Internal Medicine 03/17/21 documented as of this encounter
--- OUTSIDE RECORDS SUMMARY | 2022-03-16 15:03 | XMS_ITS | Encounter Summary ---
:1990 Author Organization [facility] Address [address] [place] [address] Care Team Providers Name Role Phone Unavailable Primary Care Provider Unavailable Encounter Details Date Type Department Care Team Description 02/09/2009 Hospital Encounter HX [facility] Sonia Friend M.D. [address] [place], [place] [address] Social History Tobacco Use [...] 10/08/2019 relatives? How often do you attend lutheran or gnosticist 1 to 4 times per year 10/08/2019 services? Do you belong to any clubs or organizations such No 10/08/2019 as lutheran groups, unions, fraternal or athletic groups, or [...]
--- OUTSIDE RECORDS SUMMARY | 2022-03-16 15:03 | XMS_ITS | Encounter Summary ---
:1990 Author Organization [facility] Address [address] [place] [address] Care Team Providers Name Role Phone Unavailable Primary Care Provider Unavailable Reason for Visit Reason Comments COVID Nurse Line Encounter Details Date Type Department Care Team Description 07/14/2019 Clinical Communication Central Appointment Line, Nabor DANIEL Nurse Line Office in [facility] [address] [place] [address] Social History Tobacco Use Types [...] How often do you attend judaism or religion 1 to 4 times per [...] meets criteria for testing. PLAN Endpoint recommendation: [facility] Personnel directed to contact Employee/Occupational Health , Screening positive, testing indicated, advised to be swabbed for COVID-19, sent to [place], [place], Self-isolation, quarantine at home and Home Care Care Points provided: Wash hands often with soap and water for at least 20 seconds, especially afterblowing your nose, coughing, sneezing, or having been in a public place If soap and water aren't available, use a hand chamber of commerce division manager that contains at least 60% alcohol Avoid [...] The following references were used: [facility] novel coronavirus (COVID- 19) resources CDC web site https://www.cdc.gov/coronavirus/2019-ncov/summary.html [facility] Nursing judgement documented in this encounter Plan of Treatment Not on filedocumented as of this encounter Visit Diagnoses Not on filedocumented in this encounter
--- OUTSIDE RECORDS SUMMARY | 2022-03-16 15:03 | XMS_ITS | Encounter Summary ---
:1990 Author Organization [facility] Address [address] [place] [address] Care Team Providers Name Role Phone Unavailable Primary Care Provider Unavailable Reason for Visit Reason Onset Date Comments Outpatient COVID-19 Testing 07/14/2019 Encounter Details Date Type Department Care Team Description 07/14/2019 External Outreach Department of [facility] Ritika Walton Infection Upper Medicine, [place] Gaston Kapoor Respiratory (Primary Clinic, in [place], [address] [place] [address] Dx) [place], [place] [address] [facility] [address] [place], [place] [phone] (Work) [phone] Social History Tobacco Use Types Packs/Day Years [...] How often do you attend orthodoxy or baptist 1 to 4 times per year 10/08/2019 [...] 2 RNA Detection (07/14/2019 3:43 PM CDT) [facility] Method Time Signature SARS-CoV-2 Nasopharynx 07/17/2019 [facility] Specimen 10:37 AM CDT Source SARS-CoV-2 Undetected Undetected 07/17/2019 [facility] RNA by PCR 10:37 AM CDT Comment: SARS-CoV-2 RNA is not detected. ----ADDITIONAL INFORMATION---- Testing was performed using the kali SA RS-CoV-2 assay ([employer] on the kali 6800 System. Fact sheets for this Emergency Use Autho rization (EUA) assay can be found at the following links: For Healthcare Providers: https://www.fd a.gov/media/473516/download For Patients: https://www.fda.gov/media/ 204195/download Specimen Anatomical Collection Method Collection Time Receive d Time (Source) Location / / Volume Laterality Varies 07/14/2019 3:43 PM 0 7:03 CDT PM CDT Junito Walton P.A.-C. LAB MICROBIOLOGY - GENERAL O RDERABLES Performing Organization Address City/State/ZIP Code Phon e Number [facility] [address] [place], [place] [address] [facility] [facility] [place] [address] Laboratory Medicine and Pathology [address] [place] documented in this encounter Visit Diagnoses Diagnosis Infection Upper Respiratory - Primary documented in this encounter
--- OUTSIDE RECORDS SUMMARY | 2022-03-16 15:03 | XMS_ITS | Encounter Summary ---
:1990 Author Organization [facility] Address [address] [place] [address] Care Team Providers Name Role Phone Unavailable Primary Care Provider Unavailable Encounter Details Date Type Department Care Team Description 05/13/2009 Hospital Encounter HX [facility] ED Adam Franks, R.N. [address] [place] [address] (Wo rk) Social History Tobacco [...] How often do you attend rastafarian or baptism 1 to 4 times per year 10/08/2019 [...]
--- OUTSIDE RECORDS SUMMARY | 2022-03-16 15:03 | XMS_ITS | Encounter Summary ---
:[address] [facility] Address [address] [place] [address] Care Team Providers Name Role Phone Unavailable Primary Care Provider Unavailable Encounter Details Date Type Department Care Team Description 08/05/2009 Hospital Encounter HX [facility] ULTRASOUN Jenna Pérez, MAT GAUGER, C.N.P. [address] [place] [address] (Wo rk) Social History Tobacco Use Types [...] 10/08/2019 relatives? How often do you attend adventism or episcopalian 1 to 4 times per year 10/08/2019 services? Do you belong to any clubs or organizations such No 10/08/2019 as adventism groups, unions, fraternal or athletic groups, or [...] via phone. Verbalized understanding. From: JENNA PÉREZ NEWSPAPER STUFFER To: JOSE ARMANDO COLLINS LPN Sent: 08/05/2009 13:34:56 CDT ! Show up: 08/05/2009 13:32:00 CDT Subject: Reminder Msg Actions: Notify patient of results Due Date/Time: 08/05/2009 13:32:00 CDT Source: [facility] Secure Software Document Id: [id number] documented in this encounter Plan of Treatment [...]
--- OUTSIDE RECORDS SUMMARY | 2022-03-16 15:03 | XMS_ITS | Encounter Summary ---
:1990 Author Organization [facility] Address [address] [place] [address] Care Team Providers Name Role Phone Unavailable Primary Care Provider Unavailable Encounter Details Date Type Department Care Team Description 02/16/2009 Hospital Encounter [facility]X [facility] Sonia Friend M.D. [address] [place], [place] [address] Social History Tobacco Use [...] 10/08/2019 relatives? How often do you attend sikhism or adventist 1 to 4 times per year 10/08/2019 services? Do you belong to any clubs or organizations such No 10/08/2019 as sikhism groups, unions, fraternal or athletic groups, or [...]
--- OUTSIDE RECORDS SUMMARY | 2022-03-16 15:03 | XMS_ITS | Encounter Summary ---
:1990 Author Organization [facility] Address [address] [place] [address] Care Team Providers Name Role Phone Unavailable Primary Care Provider Unavailable Encounter Details Date Type Department Care Team Description 03/26/2011 Hospital Encounter HX NO MAPPING Sheryl Hirsch M.D. [address] [place], [place] [address] (Wo rk) Social History Tobacco Use [...] How often do you attend anabaptism or catholic 1 to 4 times per [...]
--- OUTSIDE RECORDS SUMMARY | 2022-03-16 15:03 | XMS_ITS | Encounter Summary ---
:1990 Author Organization [facility] Address [address] [place] [address] Care Team Providers Name Role Phone Unavailable Primary Care Provider Unavailable Reason for Visit Reason Onset Date Comments Outpatient COVID-19 Testing 06/24/2019 Encounter Details Date Type Department Care Team Description 06/24/2019 External Outreach Department of Beena Cop[facility] Gerson Baez M.D. Respiratory (Primary [facility], in [facility] [address] Dx) [place] [address] [address] [place], [place] [phone] (Work) [phone] Social History Tobacco Use Types Packs/Day Years [...] 10/08/2019 relatives? How often do you attend bahai or adventist 1 to 4 times per year 10/08/2019 services? Do you belong to any clubs or organizations such No 10/08/2019 as bahai groups, unions, fraternal or athletic groups, or [...] performance characteristics determined by 06/25/2019 DTL Interpretation [facility] in a manner cons istent with CLIA [...] Address City/State/ZIP Code Phon e Number [facility] [address] [place], [place] [address] [facility] [place] [address] Laboratories-[facility] [address] documented in this encounter Visit Diagnoses Diagnosis Infection Upper Respiratory - Primary documented in this encounter
--- OUTSIDE RECORDS SUMMARY | 2022-03-16 15:03 | XMS_ITS | Encounter Summary ---
:1990 Author Organization [facility] Address [address] [place] [address] Care Team Providers Name Role Phone Unavailable Primary Care Provider Unavailable Encounter Details Date Type Department Care Team Description 03/26/2011 Hospital Encounter HX NO MAPPING Theodore Pedroza D.O. [address] [place] [address] (Wo rk) Social History Tobacco Use Types [...] How often do you attend sabianist or synagogue 1 to 4 times per [...]
--- OUTSIDE RECORDS SUMMARY | 2022-03-16 15:03 | XMS_ITS | Encounter Summary ---
:1990 Author Organization [facility] Address [address] [place] [address] Care Team Providers Name Role Phone Unavailable Primary Care Provider Unavailable Encounter Details Date Type Department Care Team Description 08/02/2009 Hospital Encounter HX [facility]ILY[facility] Jenna Pérez, DIAMOND DIE POLISHER, C.N.P. [address] [place] [address] (Wo rk) Social History Tobacco Use Types [...] 10/08/2019 relatives? How often do you attend worship or jewish 1 to 4 times per year 10/08/2019 services? Do you belong to any clubs or organizations such No 10/08/2019 as worship groups, unions, fraternal or athletic groups, or [...] CHERI, R.N. - 08/02/2009 12:00 AM CDT [id number] CHIEF COMPLAINT / REASON FOR VISIT Right [...] PLAN: I will call her tomorrow at [phone] with results of the final labs and [...] By:JENNA PÉREZ On 08/05/2009 01:29 PM Source: [facility] MHSDOLBEYNONRADSYS Document Id: [id number] documented in this encounter Miscellaneous Notes Miscellaneous - Jenna Pérez APRN, R.N. - 08/03/2009 11:25 AM CDT Reminder Msg Document Contains Addenda Addendum by JOSE ARMANDO COLLINS LPN on 03 August 2009 11:31:20 CDT Patient has been notified of test results and verbalized understanding. Scheduled for Gallbladder US on at 10am. From: JENNA PÉREZ [facility] AGENT To: JOSE ARMANDO COLLINS LPN Sent: 08/03/2009 11:25:41 CDT ! Show up: 08/03/2009 11:25:00 CDT Subject: Reminder Msg Actions: Notify patient of results Due Date/Time: 08/03/2009 11:25:00 CDT Source: [facility] POWERCHART Document Id: [id number] Electronically signed by Prosper, [facility] Content Designer [id number] at 09/11/2016 3:34 AM CDT Miscellaneous - Conversion, Historical Provider Ser - 08/02/2009 4:50 PM CDT Adult Compensation Director Intake/History Adult Compensation Director Intake/History Entered On: 08/02/2009 16:55 CDT Performed [...] Dosing Weight Clinic: 104.60kg JOSE ARMANDO COLLINS SECURITY PROFESSIONAL 08/02/2009 16:50 CDT Subjective Pain Symptoms: Yes JOSE ARMANDO COLLINS [facility] 08/02/2009 16:50 CDT Pain Pain Assessment Grid Pain 1 Location: Abdomen Intensity: 2 JOSE ARMANDO COLLINS [facility] 08/02/2009 16:50 CDT Dependent Habits Tobacco Use/Currently Using: Yes JOSE ARMANDO COLLINS [facility] 08/02/2009 16:50 CDT Tobacco Use Grid Type: Cigarettes Cigarette Use Packs/Day: 0.5 (Comment: 6 daily [JOSE ARMANDO COLLINS [facility] 08/02/2009 16:50 CDT] ) JOSE ARMANDO COLLINS [facility] 08/02/2009 16:50 CDT Allergies [facility]: [facility] POWERCHART Document Id: [id number] CDT!25 documented in this encounter Plan of Treatment Not on filedocumented as of this encounter Visit Diagnoses Not on filedocumented in this encounter
--- OUTSIDE RECORDS SUMMARY | 2022-03-16 15:03 | XMS_ITS | Encounter Summary ---
:1990 Author Organization [facility] Address [address] [place] [address] Care Team Providers Name Role Phone Unavailable [...] How often do you attend moravian or confucianism 1 to 4 times per year 10/08/2019 [...]
--- OUTSIDE RECORDS SUMMARY | 2022-03-16 15:03 | XMS_ITS | Encounter Summary ---
:[address] [facility] Address [address] [place] [address] Care Team Providers Name Role Phone Unavailable [...] How often do you attend sabianist or presybeterian 1 to 4 times per year 10/08/2019 [...]
--- OUTSIDE RECORDS SUMMARY | 2022-03-16 15:03 | XMS_ITS | Encounter Summary ---
:1990 Author Organization [facility] Address [address] [place] [address] Care Team Providers Name Role Phone Unavailable Primary Care Provider Unavailable Encounter Details Date Type Department Care Team Description 02/10/2003 Hospital Encounter HX [facility] Florentino Grewal W, P.A. [address] [place] [address] (Wo rk) Social History Tobacco [...] How often do you attend religious or judaism 1 to 4 times per year 10/08/2019 [...]
--- OUTSIDE RECORDS SUMMARY | 2022-03-16 15:03 | XMS_ITS | Encounter Summary ---
:1990 Author Organization [facility] Address [address] [place] [address] Care Team Providers Name Role Phone Unavailable Primary Care Provider Unavailable Encounter Details Date Type Department Care Team Description 08/16/2011 Hospital Encounter [facility]X [facility] Kory Flores M.D. [address] [place] [phone] (Wo rk) Social History Tobacco [...] 10/08/2019 relatives? How often do you attend denominational or religion 1 to 4 times per year 10/08/2019 services? Do you belong to any clubs or organizations such No 10/08/2019 as denominational groups, unions, fraternal or athletic groups, or [...] Flores M.D. - 08/16/2011 12:00 AM CDT [id number] CHIEF COMPLAINT/REASON FOR VISIT Buttock injury and [...] FLORES MD On: 08/21/2011 08:00 AM Source: [facility] MHSDOLBEYNONRADSYS Document Id: [id number] documented in this encounter Nursing Notes Héctor Meng L.P.NKenton - 08/24/2011 7:56 AM CDT Tried to notify patient three times of negative urine culture. Pt did not return phone call. Electronically Signed By: HÉCTOR MENG On: 08/24/2011 07:57 AM Source: [employer] Document Id: [id number] Héctor Meng L.PKentonNKenton - 08/21/2011 2:12 PM CDT LMTCB Electronically Signed By: HÉCTOR MENG On: 08/21/2011 02:12 PM Source: [employer] Document Id: [id number] documented in this encounter Miscellaneous Notes Miscellaneous - Kyler Garcia - 08/16/2011 10:49 AM CDT Adult Full Decator Operator Intake/History Adult Full Decator Operator Intake/History Entered On: 08/16/2011 10:51 CDT Performed [...] LPN; Reviewed Date: 08/16/2011 10:48 CDT Source: [employer] Document Id: [id number] CDT!30 documented in this encounter Plan of [...] Complete, Includes Microscopic (08/16/2011 11:28 AM CDT) [facility] Method Time Signature Source Clean Void POWERCHART Urine HXUr Color STRAW POWERCHART Glucose Negative Negative POWERCHART HXBILIRUBIN Negative Negative POWERCHART Ketones, QL(U) Negative Negative POWERCHART Specific 1.025 >=1.030 POWERCHART Brandon, POCT, U pH, POCT, Urine 6.0 8.5 [...] M.D. LAB URINE ORDERABLES Performing Organization Address [facility] Phon e Number POWERCHART (ABNORMAL) Bacterial Culture, Aerobic, Urine (08/16/2011 11:28 AM CDT) [facility] Time Signature Bacterial (POSITIVE POWERCHART Culture, ) [...] - GENERAL O RDERABLES Performing Organization Address [facility] Phon e Number POWERCHART documented in this encounter Visit Diagnoses Not on filedocumented in this encounter
--- OUTSIDE RECORDS SUMMARY | 2022-03-16 15:03 | XMS_ITS | Encounter Summary ---
:1990 Author Organization [facility] Address [address] [place] [address] Care Team Providers Name Role Phone Unavailable Primary Care Provider Unavailable Encounter Details Date Type Department Care Team Description 12/04/2006 Hospital Encounter [facility]X [facility] Celia Palm M.D. [address] [place] [phone] (Wo rk) Social History Tobacco [...] How often do you attend confucianism or jain 1 to 4 times per year 10/08/2019 [...]
--- OUTSIDE RECORDS SUMMARY | 2022-03-16 15:03 | XMS_ITS | Encounter Summary ---
:1990 Author Organization [facility] Address [address] [place] [address] Care Team Providers Name Role Phone Unavailable Primary Care Provider Unavailable Encounter Details Date Type Department Care Team Description 12/06/2011 Hospital Encounter HX [facility] Ian Pérez, UNIX MANAGER, C.N.P. [address] [place] [address] (Wo rk) Social History Tobacco Use Types [...] 10/08/2019 relatives? How often do you attend nondenominational or mormon 1 to 4 times per year 10/08/2019 services? Do you belong to any clubs or organizations such No 10/08/2019 as nondenominational groups, unions, fraternal or athletic groups, or [...] CHERI, RKentonN. - 12/06/2011 12:00 AM CDT [id number] CHIEF COMPLAINT/REASON FOR VISIT Multiple 1) Stomach pain. 2) Fatigue 3) Blood in urine. 4) Colitis with 5 BMs a day 6) Inability to lose weight. HISTORY OF PRESENT ILLNESS Ria is a 21-year-old woman taol-lc-cooe mom. She has 1 child. She states [...] She has had care in multiple clinics, [place] and [facility]. Her past primary care was [facility] Friend [...] she agrees with plan. Ian Pérez A.P.R.N. [facility] GegeNLeatha, C.DKentonE. Electronically Signed By: IAN PÉREZ On: 12/07/2011 11:48 AM Source: [facility] MHSDOLBEYNONRADSYS Document Id: [id number] documented in this encounter Nursing Notes Ian [...] IAN PÉREZ - 12/06/2011 14:47 CDT Source: [facility] [employer] Document Id: [id number] documented in this encounter Miscellaneous Notes Miscellaneous - Ian Pérez APRN RNona - 12/13/2011 8:23 AM CDT Results Notification Document Contains Addenda Addendum by ROHIT GREGG on 13 December 2011 16:36:58 CDT Pt informed & will call back for another appt. Pain is somewhat better this week. Addendum by ROHIT GREGG on 13 December 2011 14:47:08 CDT LMTCB From: IAN PÉREZ To: ROHIT GREGG Sent: 12/13/2011 08:23:45 CDT ! Show up: 12/13/2011 13:23:45 [facility] Subject: Results Notification Actions: Notify patient of results Source: [facility] [employer] Document Id: [id number] Miscellaneous - Ian Pérez APRN RKentonNKenton - 12/08/2011 12:56 PM CDT Results Notification Document Contains Addenda Addendum by ROHIT GREGG on 08 December 2011 18:14:04 CDT Pt informed From: IAN PÉREZ To: ROHIT GREGG Sent: 12/08/2011 12:56:48 CDT ! Show up: 12/08/2011 17:56:48 [facility] Subject: Results Notification Actions: Notify patient of results Source: [facility] POWERCHART Document Id: [id number] Electronically signed by [facility] Grip [id number] at 2016 9:00 PM CDT Miscellaneous - Ian Pérez APRN RNona - 12/07/2011 11:49 AM CDT Results Notification Document Contains Addenda Addendum by ROHIT GREGG on 07 December 2011 12:30:15 CDT Message left on v.m. - normal lab From: IAN PÉREZ To: ROHIT GREGG Sent: 12/07/2011 11:49:10 CDT ! Show up: 12/07/2011 16:49:10 [facility] Subject: Results Notification Actions: Notify patient of results Source: [facility] POWERCHART Document Id: [id number] Electronically signed by [facility], [facility] Grip [id number] at 2016 9:00 PM CDT Miscellaneous - Ian Pérez APRN RNona - 12/06/2011 3:46 PM CDT Ambulatory Depart Summary [facility] [address] [place] [id number] Visit Information Name: AMINA RIA TAY Visit [...] your provider for clarification. Additional Information: Source: [facility] POWERCHART Document Id: [id number] Miscellaneous - Ian Pérez APRN, R.N. - 12/06/2011 3:46 PM CDT Ambulatory Patient Summary [facility] [address] [place] [id number] Visit Information Name: RIA MARCELO Current Date: 12/06/2011 15:46:44 Physicians Attending Provider: IAN PÉREZ [facility] Primary Care Provider: ANA INMAN MD [...] No Appointments found Your Goals/Additional instructions: Source: [facility] POWERCHART Document Id: [id number] Miscellaneous - Conversion, Historical Provider Ser - 12/06/2011 2:28 PM CDT Adult It Help Desk Technician Intake/History Adult It Help Desk Technician Intake/History Entered On: 12/06/2011 14:35 CDT [...] LPN; Reviewed Date: 12/06/2011 14:26 CDT Source: [facility] POWERCHART Document Id: [id number] documented in this encounter Plan of Treatment [...] (ABNORMAL) Automated Differential (12/06/2011 3:58 PM CDT) [facility] gist Method Time Signature Neutro % 68.5 44.0 - POWERCHART 69.0 Lymphocytes % 19.8 18.0 - POWERCHART 44.1 HX Garvin % 9.8 5.0 - 11.7 POWERCHART HX [...] X109L Erythrocytes 4.75 3.90 - POWERCHART 5.03 [id number] Hemoglobin 14.8 12.0 - POWERCHART 15.5 GDL [...] C.N.P. LAB BLOOD ADD-ON Performing Organization Address City/[facility]/ZIP Code Phon e Number POWERCHART (ABNORMAL) [...] Hour >=140 mg/dL HXeGFR (MDRD) >60 >=60 [id number] POWERCHART Comment: The National Kidney Disease Education [...] normal kidney function eGFR Black/ >60 >=60 [id number] POWERCHART Specimen (Source) Anatomical Collection Method Collection [...] (A) Negative POWERCHART Specific >=1.030 >=1.030 POWERCHART [place], POCT, U pH, POCT, Urine 5.5 8.5 [...]
--- OUTSIDE RECORDS SUMMARY | 2022-03-16 15:03 | XMS_ITS | Encounter Summary ---
:1990 Author Organization [facility] Address [address] [place] [address] Care Team Providers Name Role Phone Unavailable Primary Care Provider Unavailable Reason for Visit Reason Comments Treatment Questions Encounter Details Date Type Department Care Team Description 06/23/2019 Clinical Division of Beena Andrade Qu estions Communication [facility] L, R.N. [facility] [phone] [facility], in (Work) [place], [place] [address] [place] [address] Social History Tobacco Use Types Packs/Day Years [...] 10/08/2019 relatives? How often do you attend cheondoism or scientologist 1 to 4 times per year 10/08/2019 services? Do you belong to any clubs or organizations such No 10/08/2019 as cheondoism groups, unions, fraternal or athletic groups, or [...] the high risk categories as identified by [facility] Infectious Disease? Yes, due to history [...] though it's not a part of our [place] system, though unsure if she would be tested there or not. Spoken with patrol supervisor over this too. Still recommended to go [facility], but spoke with patient of her comfort level, and she decided and chooses to go to [facility] through clinic tomorrow 06/23, but would address [...] and water aren't available use a hand ammunition specialist that contains at least 60% alcohol., Avoid [...] care: Yes The following references were used: [facility] novel coronavirus (COVID- 19) resources, CDC website https://www.cdc.gov/coronavirus/2019- ncov/summary.html, Nursing judgement documented in this encounter Plan of Treatment Not on filedocumented as of this encounter Visit Diagnoses Not on filedocumented in this encounter
--- OUTSIDE RECORDS SUMMARY | 2022-03-16 15:03 | XMS_ITS | Encounter Summary ---
:1990 Author Organization [facility] Address [address] [place] [address] Care Team Providers Name Role Phone Unavailable Primary Care Provider Unavailable Reason for Visit Reason Comments COVJOANN Nurse Line Encounter Details Date Type Department Care Team Description 06/23/2019 Clinical Communication Central Appointment FREDY Dinero Nurse Line Office in [place], [place] [address] [place] [address] Social History Tobacco Use Types [...] 10/08/2019 relatives? How often do you attend methodist or anglican 1 to 4 times per year 10/08/2019 services? Do you belong to any clubs or organizations such No 10/08/2019 as methodist groups, unions, fraternal or athletic groups, or [...]
[2022-03-16 22:46] LABS: SARS PCR* Negative SARS-CoV-2 (Negative)
== END 2022-03-16 15:00 | disposition home or self-care (01) ==
LOC: KYNREF 14:59
PROVIDERS: PCP Nurse Practitioner Family; Visit Provider Nurse Practitioner Family
DX: Z20.822 Contact with and (suspected) exposure to COVID-19 (principal); J11.1 Influenza due to unidentified influenza virus with other respiratory manifestations
CPT/HCPCS: 87635

== ENCOUNTER 2022-07-31 15:31 | Outpatient (CLI) | payer OTHER, SELFPAY ==
[2022-07-31 22:37] LABS: Strep A DNA Probe* NOT DETECTED (Not Detectd)
== END 2022-07-31 15:32 | disposition home or self-care (01) ==
LOC: KYNREF 15:32
PROVIDERS: PCP Nurse Practitioner Family; Visit Provider Nurse Practitioner Family
DX: J02.9 Acute pharyngitis, unspecified (principal)
CPT/HCPCS: 87651

== ENCOUNTER 2023-05-22 17:34 | Outpatient (CLI) | payer OTHER, SELFPAY ==
--- OUTSIDE RECORDS SUMMARY | 2023-05-22 17:36 | XMS_ITS | Referral Summary ---
Author Name Unknown Organization [facility] Address [address] [place] [address] Care Team Providers Care Shop Laborer Name Role Phone Elsewhere, Pcp Primary Care Provider Unavailabl e Source Comments Patient records contain information from all sites at [facility]. For routine questions regarding patient records, call [phone] during business hours, M-F 8:00 AM - 5:00 PM Central Time. Record requests for emergency care only can be directed to [phone] at any time.[facility] Encounters Date Type Department Care Team Description 05/10/2023 Clinical Communication Department of Obstetrics and Gynecology in [address] [address] Philip Bell M.D. 05/10/2023 Clinical Communication Department of Obstetrics and Gynecology in [address] [address] Philip Bell M.D. 05/10/2023 Clinical Communication Department of Obstetrics and Gynecology in [address] [address] Philip Bell M.D. 05/10/2023 9:45 AM CHIEF METEOROLOGIST Virtual Visit Department of Obstetrics and Gynecology in [address] [address] Philip Bell M.D. Testing Fertility (Primary Dx) Discharge Disposition: Home or Self Care 05/03/2023 10:30 AM CHIEF METEOROLOGIST Office Visit Department of Obstetrics and Gynecology in [address] [place] [address] Kena Barnard APRN, C.N.P. Bleeding Dysfunctional Uterine Discharge Disposition: Home or Self Care 05/03/2023 10:00 AM CHIEF METEOROLOGIST Ancillary Procedure Department of Obstetrics and Gynecology in [place], [place] [address] [place] [address] Kena Barnard APRN, C.N.P. Bleeding Dysfunctional Uterine Discharge Disposition: Home or Self Care 04/30/2023 9:40 AM CHIEF METEOROLOGIST - 04/30/2023 11:59 PM CHIEF METEOROLOGIST Hospital Encounter Department of Laboratory Medicine in [place], [place] [address] [facility] [place] [address] Kena Barnard APRN, C.N.P. Bleeding Dysfunctional Uterine Discharge Disposition: Home or Self Care 04/30/2023 9:00 AM CHIEF METEOROLOGIST Office Visit Department of Obstetrics and Gynecology in [place], [place] [address] [place] [address] Kena Barnard APRN, C.N.P. Bleeding Dysfunctional Uterine (Primary Dx); High Risk Human Papillomavirus Deoxyribonucleic Acid Test Positive Cervix; Polycystic Ovary Syndrome Discharge Disposition: Home or Self Care 03/01/2023 10:25 AM CHIEF METEOROLOGIST - 03/01/2023 11:42 AM CHIEF METEOROLOGIST Emergency [facility] [address] [place] [address] Shortness Of Breath (Primary Dx) Discharge Disposition: Home or Self Care from Last 3 Months Allergies Active Allergy Reactions Criticality Noted Date Comments Bee Venom Protein (Honey Bee) Other (see comments) Medium 04/11/2021 Food Extracts Rash 04/25/2006 mangos and cashews Sertraline Other (see comments) 05/04/2014 Spironolactone Other (see comments) Medium 03/03/2020 Patient felt weak, passed out and was transported to EMERGENCY DEPARTMENT Medications Medication Sig Dispensed Refills Start Date End Date Status multivitamin capsule Take 1 tablet by mouth daily. 0 12/06/2011 Active albuterol (ACCUNEB) 2.5 mg /3 mL nebulizer solution Inhale 2.5 mg. 0 06/26/2019 Active albuterol inhaler Inhale 2 puffs. 0 08/02/2009 Ac tive ipratropium-albute roL (DUONEB) 0.5-2.5 mg/3 mL nebulizer solution Inhale 3 mL. 0 04/03/2019 Acti ve amphetamine-dextro amphetamine (ADDERALL XR) 25 mg 24 hr capsule Take 25 mg by mouth daily. 0 10/06/2019 Active EPINEPHrine 0.3 mg/0.3 mL injection syringe Inject 0.3 mg intramuscularly. 0 11/06/2018 Active famotidine (PEPCID) 20 mg tablet Take 20 mg by mouth. 0 07/16/2019 Active polyethylene glycol (MIRALAX) 17 gram/dose oral powder Take 17 g by mouth. 0 11/06/2018 Activ e LORazepam (ATIVAN) 0.5 mg tablet Take 0.5 mg by mouth. 0 06/04/2019 Active oxyCODONE-acetamin ophen (PERCOCET) 5-325 mg per tablet Take 1 tablet by mouth. 0 03/08/2021 Active medroxyPROGESTERon e (PROVERA) 10 mg tabletIndications: Menorrhagia Take 1 tablet (10 mg total) by mouth daily. Expect a period within 1 week of stopping medication. 14 tablet 11 11/08/2021 Active norethindrone-ethi nyl estradiol-iron (Loestrin Fe 04/28, 28-Day,) 1 mg-20 mcg (21)/75 mg (7) per tablet Take 1 tablet by mouth daily. 84 tablet 4 11/29/2021 Active Additional Information Patient not taking.Reported on 04/30/2023 iron,carbonyl-rodger min C (VITRON-C) 65 mg iron- [address] tablet Take 1 tablet (65 mg of iron total) by mouth every other day. Do not crush or chew. 100 tablet 3 11/29/2021 Active blood sugar diagnostic strips (Accu-Chek Guide test strips) Test 3 times per day as needed for symptoms of hypoglycemia. Accu Check 0 06/06/2022 Active glucose 4 gram chewable tablet Take 1 tablet as needed for blood sugar less than 60 or if symptomatic. Ok to take up to 6 doses a day. 0 06/08/2022 Active ferrous sulfate 325 mg (65 mg iron) DR tablet Take 325 mg by mouth. 0 04/26/2023 Active methylPREDNISolone (MEDROL DOSEPAK) 4 mg tablet Take by mouth as instructed per packaging. 0 04/06/2023 Active nystatin (MYCOSTATIN) 100,000 unit/mL suspension Take 500,000 Units by mouth. 0 04/11/2021 Active Active Problems Problem Noted Date Diagnosed Date Third Degree Hemorrhoids 04/30/2023 Insulinoma Benign 04/30/2023 Bleeding Dysfunctional Uterine 04/30/2023 Overview: Will proceed with surgical consultation for consideration of hysteroscopic dilation and curettage and possible polypectomy. Menorrhagia 11/08/2021 Overview: She has completed a [...] by Sunday, she would let me know. 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 Plan: Pap/HPV due 12/2023. Anxiety Generalized Disorder 02/18/2021 Depression Major Recurrent Moderate 02/18/2021 Pain Disorder With Related Psychological Factors 02/18/2021 Ulcerative Colitis Unspecified Without Complicat ions 10/15/2019 Overview: colonoscopy '05 Polycystic Ovary Syndrome 10/15/2019 Overview: Hirsutism noted. It has been many years since she has taken any treatment for her PCOS. Also has history of insulinoma, making metformin a poor choice of treatment. She does consume cigarettes, therefore making estrogen containing contraception a problematic option. Will reassess following her pelvic ultrasound and discuss options at that time. Other Specified Behavioral A nd Emotional Disorders With Onset Usually Occurring In Childhood And Adolescence 10/24/2017 Administrative Purpose Exam 06/05/2014 Overview: Compliant, stable [place] 5-325, 20 tab/month Adderall XR 25 mg, 30 tab/month Asthma 04/25/2006 Immunizations Name Administration Dates Next Due 4vHPV (discontinued) 08/09/2012,12/12/2007 Tdap 08/09/2012 Social History Tobacco Use Types Packs/Day Years Used Date Smoking Tobacco: Every Day Cigarettes 0.8 20 Smokeless Tobacco: Never Tobacco Cessation:Ready to Q uit: Not Asked; Counseling Given: Not Answered Alcohol Use Standard Drinks/Week Comments Not Currently 0 (1 standard drink = 0.6 oz pur e alcohol) Very very rarely [facility] The Social Coin SLities Answer Date Recorded In the past 12 months has e [employer], gas, oil, or water [employer] threatened to shut off services in your home? Yes 04/26/2023 Humiliation, Afraid, Rape, and Kick questionnair e Answer Date Recorded Within the last year, have y ou been afraid of your partner or ex-partner? No 10/08/2019 Within the last year, have y ou been humiliated or emotionally abused in other ways by your partner or ex-partner? No Within the last year, have y ou been kicked, hit, slapped, or otherwise physically hurt by your partner or ex-partner? No 10/08/2019 Within the last year, have y ou been raped or forced to have any kind of sexual activity by your partner or ex-partner? No 10/08/2019 Social Connection and Isolation Panel [NHANES] A nswer Date Recorded In a typical week, how many times do you talk on the phone with family, friends, or neighbors? Three times a week 10/08/19 20 How often do you get togethe r with friends or relatives? Once a week 10/08/2019 How often do you attend chur or jehovah's witness services? 1 to 4 times per year 10/08/2019 Do you belong to any clubs o r organizations such as temple groups, unions, fraternal or athletic groups, or school groups? No 10/08/2019 How often do you attend meet ings of the clubs or organizations you belong to? Never 10/08/2019 Are you , , di vorced, , never , or living with a partner? Never 10/08/2019 AUDIT-C Answer Date Recorded Q1: How often do you have a drink containing alc ohol? Monthly or less 10/08/2019 Q2: How many drinks containi ng alcohol do you have on a typical day when you are drinking? 1 or 2 10/08/2019 Q3: How often do you have si x or more drinks on one occasion? Never 10/08/2019 Overall Financial Resource Strain (CARDIA) Answe r Date Recorded How hard is it for you to pa y for the very basics like food, housing, medical care, and heating? Somewhat hard 10/08/2019 [facility] of Occupat ional Health - Occupational Stress Questionnaire Answer Date Recorded Do you feel stress - tense, restless, nervous, or anxious, or unable to sleep at night because your mind is troubled all the time - these days? To some extent 10/08/2019 Exercise Vital Sign Answer Date Recorde d On average, how many days pe r week do you engage in moderate to strenuous exercise (like a brisk walk)? 5 days 04/26/2023 On average, how many minutes do you engage in exercise at this level? 150+ min 04/26/2023 Hunger Vital Sign Answer Date Recorded Within the past 12 months, y ou worried that your food would run out before you got the money to buy more. Sometimes true Within the past 12 months, t he food you bought just didn't last and you didn't have money to get more. Patient declined PRAPARE - Transportation Answer Date Re corded In the past 12 months, has l ack of transportation kept you from medical appointments or from getting medications? No 04/09 In the past 12 months, has l ack of transportation kept you from meetings, work, or from getting things needed for daily living? No 04/26/2023 Nutrition Answer Date Recorded Nutrition: EVOO Fat Source Unknown 04/26 On average, how many serving s of fruits and vegetables do you eat per day (serving size is equal to 1 cup or approximately the size of a tennis ball)? 0-2 04/26/2023 Dental Answer Date Recorded Dental: Regular Dentist No 04/26/19 24 Employment Answer Date Recorded Employment status Employed and actively working without restrictions 04/26/2023 Housing Stability Answer Date Recorded What is your living situation today? I [facility] a [facility] to live 04/26/2023 Education Answer Date Recorded What is the highest level of school you have completed or the highest degree you have received? 12th grade 10/08/2019 Sex and Gender Information Value Date Recorded Sex Assigned at Female 04/26/2023 8:01 PM CHIEF METEOROLOGIST Gender Identity Female 06/24/2019 6:55 PM CDT Sexual Orientation Straight 10/08/2019 3: 02 PM CDT Last Filed Vital Signs Vital Sign Reading Time Taken Comments Blood Pressure 128/74 05/03/2023 10:21 AM CHIEF METEOROLOGIST Pulse 72 11/29/2021 8:45 AM CDT Temperature 36.9 ??C (98.4 ??F) 03/17/2021 4:00 PM CS T Respiratory Rate 16 11/29/2021 8:45 AM CDT Oxygen Saturation 97% 03/17/2021 7:15 PM CHIEF METEOROLOGIST Inhaled Oxygen Concentration - - Weight 110 kg (243 lb 0.9 oz) 05/03/2023 10:21 A M CHIEF METEOROLOGIST Height 172.5 cm (5' 7.91) 12/06/2011 2:28 PM CD T Body Mass Index - - Plan of Treatment Not on file Procedures Procedure Name Priority Date/Time Associated Diagnosis Comments US PELVIS TRANSVAGINAL RAD - Routine (most inpatients and all outpatients) 05/03/2023 10:45 AM CHIEF METEOROLOGIST Bleeding Dysfunctional Uterine FOLLICLE-STIM HORMONE (FSH), S Routine 04/30/2023 10:09 AM CHIEF METEOROLOGIST Bleeding Dysfunctional Uterine ESTRADIOL, RAPID, S Routine 04/30/2023 10:09 AM CHIEF METEOROLOGIST Bleeding Dysfunctional Uterine TESTOSTERONE, TOT AND FR, S Routine 04/10 10:09 AM CHIEF METEOROLOGIST Bleeding Dysfunctional Uterine DEHYDROEPIANDROSTERONE SULFATE (DHEA-S) LEVEL, S Routine 04/30/2023 10:09 AM CHIEF METEOROLOGIST Bleeding Dysfunctional Uterine from Last 3 Months Results * US Pelvis Transvaginal (05/03/2023 10:45 AM CHIEF METEOROLOGIST) Anatomical Region Laterality Modality Pelvis, Ultrasound RST LOS, Ultrasound ARZ LOS, Ultrasound FLA LOS N/A Ultrasound Impressions 05/03/2023 10:49 AM CHIEF METEOROLOGIST ComplexVascularAppearingEndometrium, recommendSampling Narrative 05/03/2023 10:49 AM CHIEF METEOROLOGIST EXAM: US PELVIS TRANSVAGINAL COMPARISON: TECHNIQUE: Transvaginal. Transvaginal exam performed to better visualize the uterus and/or adnexal regions. FINDINGS: Uterus: 5.6 cm x 4.8 cm x 8.5 cm. Myometrium: Normal. Endometrium: internal vascularity and thickened appearance. . Thickness: 19 mm Right ovary: 2.68 cm x 3.03 cm x 4.64 cm. ??Ovarian volume: 20 cc. Left ovary: 1.67 cm x 1.97 cm x 3.80 cm. ??Ovarian volume: 7 cc. Intraperitoneal Fluid: None. Procedure Note Philip Bell M.D. - 05/03/2023 EXAM: US PELVIS TRANSVAGINAL COMPARISON: TECHNIQUE: Transvaginal. Transvaginal exam performed to better visualizethe uterus and/or adnexal regions. FINDINGS: Uterus: 5.6 cm x 4.8 cm x 8.5 cm. Myometrium: Normal. Endometrium: internal vascularity and thickened appearance. . Thickness: 19 mm Right ovary: 2.68 cm x 3.03 cm x 4.64 cm. Ovarian volume: 20 cc. Left ovary: 1.67 cm x 1.97 cm x 3.80 cm. Ovarian volume: 7 cc. Intraperitoneal Fluid: None. IMPRESSION: ComplexVascularAppearingEndometrium, recommendSampling Kena Barnard APRN, C.N.P. IMG US IL OCEDURES * Estradiol, Rapid, Immunoassay - (for rapid assessment of ovarian status) (04/30/2023 10:09 AM CHIEF METEOROLOGIST) Estradiol Rapid, Immunoassay, S 36 pg/mL 04/30/2023 5:40 PM CHIEF METEOROLOGIST [facility] Comment: Biotin has been identified by the hot patcher as a potential interfering substance. Higher concentrations of biotin may be found in multivitamins, hair/nail supplements, and workout supplements. If the result does not match clinical observations, repeat testing after patient refrains from the use of supplements for at least 12 hours. ----REFERENCE VALUE---- Premenopausal: 15-350 pg/mL Postmenopausal: <10 pg/mL Estradiol concentrations vary widely throughout the menstrual cycle. Blood (Blood, Venous) 04/30/2023 10:09 AM CHIEF METEOROLOGIST 04/30/2023 5:07 PM CHIEF METEOROLOGIST Kena Barnard APRN, C.N.P. LAB BLOOD ADD-ON [facility] [address] [place] [address], [facility] [place] [address] * Dehydroepiandrosterone Sulfate (DHEA-S) (04/30/2023 10:09 AM CHIEF METEOROLOGIST) Dehydroepiandrosterone Sulfate, S 217 45 - 295 mcg/dL 05/01/2023 9:52 AM CHIEF METEOROLOGIST [facility] Blood (Blood, Venous) 04/30/2023 10:09 AM CHIEF METEOROLOGIST 05/01/2023 8:58 AM CHIEF METEOROLOGIST Kena Barnard APRN, C.N.P. LAB BLOOD ADD-ON [facility] [address] [place] [address] [facility] [address] [place] [address] * (ABNORMAL) Testosterone, Total and Free (04/30/2023 10:09 AM CHIEF METEOROLOGIST) Testosterone, Free, S 1.29(H) <0.13 - 1.03 ng/dL 05/04/2023 1:35 PM CHIEF METEOROLOGIST [facility] Comment: ----ADDITIONAL INFORMATION---- This test was developed and its performance characteristics determined by [facility] in a manner consistent with CLIA requirements. This test has not been cleared or approved by the U.S. Food and Drug Administration. Testosterone, Total by Mass Spectrometry, Serum 40 8 - 60 ng/dL 05/02/2023 1:44 AM CHIEF METEOROLOGIST [facility] Comment: ----ADDITIONAL INFORMATION---- Testing performed by Liquid Chromatography-Tandem Mass Spectrometry (LC-MS/MS). This test was developed and its performance characteristics determined by [facility] in a manner consistent with CLIA requirements. This test has not been cleared or approved by the U.S. Food and Drug Administration. Blood (Blood, Venous) 04/30/2023 10:09 AM CHIEF METEOROLOGIST 05/01/2023 7:45 AM CHIEF METEOROLOGIST Kena Barnard APRN C.N.P. LAB BLOOD NON ADD-ON Performing Organization Address [facility] Co de Phone Number [facility] [address] [place] [address] [facility] [address] [place] [address] [place] [address] * Follicle-Stimulating Hormone (FSH), Serum (04/30/2023 10:09 AM CHIEF METEOROLOGIST) Follicle-Stim Hormone (FSH), S 7.1 IU/L 05/01/2023 1:07 PM CHIEF METEOROLOGIST DT Comment: ----REFERENCE VALUE---- Premenopausal: 2.9-14.6 IU/L (Follicular) 4.7-23.2 IU/L (Midcycle) 1.4-8.9 IU/L (Luteal) Postmenopausal: 16.0-157.0 IU/L Blood (Blood, Venous) 04/30/2023 10:09 AM CHIEF METEOROLOGIST 05/01/2023 12:18 PM CHIEF METEOROLOGIST Kena Barnard APRN, C.N.P. LAB BLOOD ADD-ON Performing Organization Address [facility]/ZIP Co de Phone Number [facility] [address] [place] [address], [facility][note 2] [address] [place] [address] from Last 3 Months Care Teams Shop Laborer Relationship Specialty Start Date End Date Elsewhere, Pcp PCP - General Internal Medicine 03/17/21
--- OUTSIDE RECORDS SUMMARY | 2023-05-22 17:36 | XMS_ITS ---
Author Name Unknown Organization [facility] Address [address] [place] [address] Care Team Providers Care Fixed Route Bus Operator Name Role Phone Unavailable Unavailable Unavailable Surgery Details Not on file Complications Check Surgery Details section. Procedure Estimated Blood Loss Check Surgery Details section. Procedure Findings Check Surgery Details section. Procedure Specimens Taken Check Surgery Details section.
--- OUTSIDE RECORDS SUMMARY | 2023-05-22 17:36 | XMS_ITS | Encounter Summary ---
Author Name Unknown Organization [facility] Address [address] [place] [address] Care Team Providers Care Medical Apparatus Model Maker Name Role Phone Elsewhere, Pcp Primary Care Provider Unavailabl e Reason for Referral * Outpatient (Routine) - Authorized Specialty Diagnoses / Procedures Referred By Daren monique Referred To Contact Endocrinology Diagnoses Polycystic Ovary Syndrome Philip Bell M.D. [address] [place] [phone] Referral ID Status Reason Start Date Expiration Date Visits Requested Visits Authorized [id number] Authorized Patient Preference 05/10/2023 11/08/2024 1 1 MAKER Encounter Details Date Type Department Care Team (Late st Contact Info) Description 05/10/2023 Clinical Communication Department of Obstetrics and Gynecology in [address] [address] Philip Bell M.D. [address] [place] [address] Social History Tobacco Use Types Packs/Day Years Used Date Smoking Tobacco: Every Day Cigarettes 0.8 20 Smokeless Tobacco: Never Alcohol Use Standard Drinks/Week Comments Not Currently 0 (1 standard drink = 0.6 oz pur e alcohol) Very very rarely [facility] Utilities Answer Date Recorded In the past 12 months has e electric, gas, oil, or water company threatened to shut off services in your [...] or neighbors? Three times a week 10/08/19 How often do you get togethe r with friends or relatives? Once a week 10/08/2019 How often do you attend [facility] or baptism services? 1 to 4 times per year 10/08/2019 Do you belong to any clubs o r organizations such as caodaism groups, unions, fraternal or athletic [...] medical care, and heating? Somewhat hard 10/08/2019 [facility] [place] of Occupat ional Health - Occupational Stress [...] your living situation today? I have a [facility] place to live 04/26/2023 Education Answer Date Recorded What is the highest level of school you have completed or the highest degree you have received? 12th grade 10/08/2019 Sex and Gender Information Value Date Recorded Sex Assigned at Female 04/26/2023 8:01 PM WINEMAKER Gender Identity Female 06/24/2019 6:55 PM CDT Sexual Orientation Straight 10/08/2019 3: 02 PM CDT documented as of this encounter Miscellaneous Notes * Telephone Encounter - Ruchi Syed M.S.Jayme., R.N. - 05/10/2023 11:29 AM WINEMAKER Pt contacted and aware referral to Endocrinology has been faxed to [facility]. She has questions regarding post hysteroscopy care. Discussed avoiding anything in vagina for 24 hours. She is considering a reschedule for her procedure. She was given contact information and will call back if she chooses to reschedule procedure. MAKER * Telephone Encounter - Ruchi Syed M.S.N., R.N. - 05/10/2023 10:57 AM WINEMAKER ----- Message from Philip Bell M.D. sent at 05/10/2023 10:28 AM WINEMAKER ----- Please put in a referral for Endocrinology with [facility] for this patient. She has frequent hypoglycemia and a possible insulinoma which is worsening her PCOS and obesity and causing secondary abnormalcycles, iron-deficiency anemia, and infertility. MAKER documented in this encounter Plan of Treatment Not on file documented as of this encounter Visit Diagnoses Diagnosis Polycystic Ovary Syndrome- Primary documented in this encounter Care Teams Medical Apparatus Model Maker Relationship Specialty Start Date End Date Elsewhere, Pcp PCP - General Internal Medicine 03/17/21 documented as of this encounter
--- OUTSIDE RECORDS SUMMARY | 2023-05-22 17:36 | XMS_ITS | Encounter Summary ---
Author Name Unknown Organization [facility] Address [address] [place] [address] Care Team Providers Care Strategic Business Development Name Role Phone Elsewhere, Pcp Primary Care Provider Unavailabl e Encounter Details Date Type Department Care Team (Late st Contact Info) Description 05/10/2023 Clinical Communication Department of Obstetrics and Gynecology in [place], [place] [address] [place] [phone] Philip Bell M.D. [address] [place] [address] Social History Tobacco Use Types Packs/Day Years Used Date Smoking Tobacco: Every Day Cigarettes 0.8 20 Smokeless Tobacco: Never Alcohol Use Standard Drinks/Week Comments Not Currently 0 (1 standard drink = 0.6 oz pur e alcohol) Very very rarely [facility] Utilities Answer Date Recorded In the past 12 months has [facility] [employer], gas, oil, or water [employer] threatened to shut off services in your [...] How often do you attend chur or adventist services? 1 to 4 times per year 10/08/2019 Do you belong to any clubs o r organizations such as mormonism groups, unions, fraternal or athletic groups, or [...] medical care, and heating? Somewhat hard 10/08/2019 [facility] of Occupat ional Health - Occupational Stress [...] your living situation today? I have a [facility] place to live 04/26/2023 Education Answer Date Recorded What is the highest level of school you have completed or the highest degree you have received? 12th grade 10/08/2019 Sex and Gender Information Value Date Recorded Sex Assigned at Female 04/26/2023 8:[address]ER Gender Identity Female 06/24/2019 6:55 PM CDT Sexual Orientation Straight 10/08/2019 3: 02 PM CDT documented as of this encounter Plan of Treatment Not on file documented as of this encounter Visit Diagnoses Not on filedocumented in this encounter Care Teams Strategic Business Development Relationship Specialty Start Date End Date Elsewhere, Pcp PCP - General Internal Medicine 03/17/21 documented as of this encounter
--- OUTSIDE RECORDS SUMMARY | 2023-05-22 17:36 | XMS_ITS | Encounter Summary ---
Author Name Unknown Organization [facility] Address [address] [place] [address] Care Team Providers Care Aviation Tactical Readiness Officer Name Role Phone Elsewhere, Pcp Primary Care Provider Unavailabl e Encounter Details Date Type Department Care Team (Late st Contact Info) Description 05/10/2023 Clinical Communication Department of Obstetrics and Gynecology in [place], [place] [address] [place] [phone] Philip Bell M.D. [address] [place] [phone] Social History Tobacco Use Types Packs/Day Years Used Date Smoking Tobacco: Every Day Cigarettes 0.8 20 Smokeless Tobacco: Never Alcohol Use Standard Drinks/Week Comments Not Currently 0 (1 standard drink = 0.6 oz pur e alcohol) Very very rarely [facility] Utilities Answer Date Recorded In the past 12 months has [facility], gas, oil, or water [employer] threatened to shut off services in your [...] How often do you attend chur or buddhism services? 1 to 4 times per year 10/08/2019 Do you belong to any clubs o r organizations such as christianity groups, unions, fraternal or athletic [...] medical care, and heating? Somewhat hard 10/08/2019 [facility] [place] of Occupat ional Health - Occupational Stress [...] Date Recorded Dental: Regular Dentist No 04/26/19 Employment Answer Date Recorded Employment status Employed and actively working without restrictions 04/26/2023 Housing Stability Answer Date Recorded What is your living situation today? I have a [facility] place to live 04/26/2023 Education Answer Date Recorded What is the highest level of school you have completed or the highest degree you have received? 12th grade 10/08/2019 Sex and Gender Information Value Date Recorded Sex Assigned at Female 04/26/2023 8:01 PM CONSTRUCTION IRONWORKER HELPER Gender Identity Female 06/24/2019 6:55 PM CDT Sexual Orientation Straight 10/08/2019 3: 02 PM CDT documented as of this encounter Miscellaneous Notes * Telephone Encounter - Ariana Cordoba L.PKentonN. - 05/10/2023 10:50 AM CONSTRUCTION IRONWORKER HELPER [facility] Surgery Clinic Checklist Patient Contact Number: [phone] Surgeon: Arabella Surgical Service: (_) Orthopedics (_) General surgery (_) Ophthalmology (_) Podiatry (_) ENT (_) Urology (X) OB / Gynecology (_) Other Date of Surgery: 05/21/23 Place of Surgery: [facility] Procedure (as written on Consent): hysteroscopy, dilatation and curettage Right, Left, Bilateral, N/A: Diagnosis (reason for surgery): AUB ICD-10: n93.8 CPT: 64215 TRUCTION IRONWORKER HELPER documented in this encounter Plan of Treatment Not on file documented as of this encounter Visit Diagnoses Not on filedocumented in this encounter Care Teams Aviation Tactical Readiness Officer Relationship Specialty Start Date End Date Elsewhere, Pcp PCP - General Internal Medicine 03/17/21 documented as of this encounter
--- OUTSIDE RECORDS SUMMARY | 2023-05-22 17:36 | XMS_ITS | Encounter Summary ---
Author Name Unknown Organization [facility] Address [address] [place] [address] Care Team Providers Care Inspector Repairer Sandstone Name Role Phone Elsewhere, Pcp Primary Care Provider Unavailabl e Reason for Visit * Appointment Request (Routine) - Closed Specialty Diagnoses / Procedures Referred By Contsurjit t Referred To Contact Obstetrics and Gynecology Referral ID Status Reason Start Date Expiration Date Visits Re quested Visits Authorized [id number] Closed 05/03/2023 05/02/2024 1 1 Encounter Details Date Type Department Care Team (Late st Contact Info) Description 05/10/2023 9:45 AM DIANETIC COUNSELOR Virtual Visit Department of Obstetrics and Gynecology in [address] [phone] Philip Bell M.D. [address] [place] [phone] Testing Fertility (Primary Dx) Discharge Disposition: Home or Self Care Social History Tobacco Use Types Packs/Day Years Used Date Smoking Tobacco: Every Day Cigarettes 0.8 20 Smokeless Tobacco: Never Alcohol Use Standard Drinks/Week Comments Not Currently 0 (1 standard drink = 0.6 oz pur e alcohol) Very very rarely [facility] Utilities Answer Date Recorded In the [...] How often do you attend chur or scientology services? 1 to 4 times per year 10/08/2019 Do you belong to any clubs o r organizations such as evangelical groups, unions, fraternal or athletic groups, or [...] medical care, and heating? Somewhat hard 10/08/2019 [facility] [place] of Occupat ional Health - Occupational Stress [...] your living situation today? I have a [facility] place to live 04/26/2023 Education Answer Date Recorded What is the highest level of school you have completed or the highest degree you have received? 12th grade 10/08/2019 Sex and Gender Information Value Date Recorded Sex Assigned at Female 04/26/2023 8:01 PM DIANETIC COUNSELOR Gender Identity Female 06/24/2019 6:55 PM CDT Sexual Orientation Straight 10/08/2019 3: 02 PM CDT documented as of this encounter Progress Notes * Philip Bell M.D. - 05/10/2023 9:45 AM CST Consult note, requested by Kena Barnard, conducted by phone today SUBJECTIVE Chief complaint No chief complaint on file. History of present illness Jeanette Marcelo is a 32 y.o. who presents in consultation given history of abnormaluterine bleeding and abnormal findings on ultrasound, discussed in detail by Kena Barnard at recent appointment, patient desires to schedule a hysteroscopy D&C for further evaluation of her uterus. See note dated May 03 for further diagnosis, in brief, patient with chronic abnormal cycles and prolonged episodes of bleeding with secondary iron- deficiency anemia. One prior spontaneous , has been having unprotected sex for years with no further spontaneous fertility. She does desire another , currently in a stable long-term relationship. She previously tried OCPs to regulate her bleeding though had side effects, in retrospect, she thinks that the side effects may havebeen caused by the anemia not the control pills. However, does not desire further management with contraception given desire for . She also has a diagnosis of PCOS which has worsened by a suspected insulinoma and frequent hypoglycemia which is symptomatic and causes her to snack throughout the day. She has noticed more regular menstrual cycles in the past when her weight has been down though has since gained weight and the cycles have become increasingly abnormal. She was seen by endocrinology 2 years ago at an outside facility though her concerns were dismissed at that time and she has not seen another provider. Medical history is also complicated by ulcerative colitis diagnosed approximately 25 years ago. FSH 7.1 Estradiol 36 Testosterone free 1.29, total 40 DHEA-S 217 TSH 0.74 Hemoglobin 11.0, up from collin of 9.8 Iron 20, up from 12 IBC for 41 Iron% saturation 4 Ferritin 4.6 [facility] history: No LMP recorded. (Menstrual status: Irregular Periods). Last pap NIL, December 2022 control: none Medical history Past Medical History: Diagnosis Date Anxiety Generalized Disorder 2013 Asthma NOS 1996 Colitis Ulcerative (HCC) 2002 Gallbladder Disorder 2006 Headache Unspecified 2015 Insulinoma Benign 04/30/2023 Irritable Bowel Syndrome Without Diarrhea 1999 Liver Disease 2018 Migraine Headache 2017 Pneumonia 2017 Stone Kidney 2017 Surgical history Past Surgical History: Procedure Laterality Date TONSILLECTOMY Family history Family History Problem Relation Age of Onset Breast cancer Mother Hypertension Mother Diabetes Mother Asthma Mother Anxiety disorder Mother Psychiatric Mother ADD Mother Obesity Mother Asthma Father Unexplained Father Migraines Sister Depression Sister Social history Social History Socioeconomic History Marital status: Single Highest education level: 12th grade Tobacco Use Smoking status: Every Day Packs/day: 0.75 Years: 20.00 Additional pack years: 0.00 Total pack years: 15.00 Types: Cigarettes Smokeless tobacco: Never Vaping Use Vaping Use: never used Substance and Sexual Activity Alcohol use: Not Currently Comment: Very very rarely Drug use: Never Sexual activity: Yes Partners: Male control/protection: None Social Determinants of Health Food Insecurity: Food Insecurity Present (04/26/2023) Hunger Vital Sign Worried About Running Out of Food in the Last Year: Sometimes true Ran Out of Food in the Last Year: Patient declined Transportation Needs: No Transportation Needs (04/26/2023) PRAPARE - Transportation Lack of Transportation (Medical): No Lack of Transportation (Non-Medical): No Physical Activity: Sufficiently Active (04/26/2023) Exercise Vital Sign Days of Exercise per Week: 5 days Minutes of Exercise per Session: 150+ min Intimate Partner Violence: Not At Risk (10/08/2019) Humiliation, Afraid, Rape, and Kick questionnaire Fear of Current or Ex-Partner: No Emotionally Abused: No Physically Abused: No Sexually Abused: No Housing Stability: Low Risk (04/26/2023) Housing Stability Housing: Living Situation: I have a steady place to live Allergies Bee venom protein (honey bee), Spironolactone, Food extracts, and Sertraline Medications Current Outpatient Medications Medication Sig Dispense Refill albuterol (ACCUNEB) 2.5 mg /3 mL nebulizer solution Inhale 2.5 mg. albuterol inhaler Inhale 2 puffs. amphetamine-dextroamphetamine (ADDERALL XR) 25 mg 24 hr capsule Take 25 mg by mouth daily. blood sugar diagnostic strips (Accu-Chek Guide test strips) Test 3 times per day as needed for symptoms of hypoglycemia. Accu Check EPINEPHrine 0.3 mg/0.3 mL injection syringe Inject 0.3 mg intramuscularly. famotidine (PEPCID) 20 mg tablet Take 20 mg by mouth. ferrous sulfate 325 mg (65 mg iron) DR tablet Take 325 mg by mouth. glucose 4 gram chewable tablet Take 1 tablet as needed for blood sugar less than 60 or if symptomatic. Ok to take up to 6 doses a day. ipratropium-albuteroL (DUONEB) 0.5-2.5 mg/3 mL nebulizer solution Inhale 3 mL. iron,carbonyl-vitamin C (VITRON-C) 65 mg iron- [address] tablet Take 1 tablet (65 mg of iron total)by mouth every other day. Do not crush or chew. 100 tablet 3 LORazepam (ATIVAN) 0.5 mg tablet Take 0.5 mg by mouth. medroxyPROGESTERone (PROVERA) 10 mg tablet Take 1 tablet (10 mg total) by mouth daily. Expect a period within 1 week of stopping medication. 14 tablet 11 methylPREDNISolone (MEDROL DOSEPAK) 4 mg tablet Take by mouth as instructed per packaging. multivitamin capsule Take 1 tablet by mouth daily. norethindrone-ethinyl estradiol-iron (Loestrin Fe 04/28, 28-Day,) 1 mg-20 mcg (21)/75 mg (7) per tablet Take 1 tablet by mouth daily. (Patient not taking: Reported on 04/30/2023) 84 tablet 4 nystatin (MYCOSTATIN) 100,000 unit/mL suspension Take 500,000 Units by mouth. oxyCODONE-acetaminophen (PERCOCET) 5-325 mg per tablet Take 1 tablet by mouth. polyethylene glycol (MIRALAX) 17 gram/dose oral powder Take 17 g by mouth. No current facility-administered medications for this visit. OBJECTIVE Physical exam There were no vitals filed for this visit. There is no height or weight on file to calculate BMI. General: Alert, oriented, appropriately interactive, in no acute distress. Labs: No results found for this or any previous visit (from the past 72 hour(s)). Imaging: Uterus: 5.6 cm x 4.8 cm x 8.5 cm. Myometrium: Normal. Endometrium: internal vascularity and thickened appearance. . Thickness: 19 mm Right ovary: 2.68 cm x 3.03 cm x 4.64 cm. Ovarian volume: 20 cc. Left ovary: 1.67 cm x 1.97 cm x 3.80 cm. Ovarian volume: 7 cc. Intraperitoneal Fluid: None. IMPRESSION: ComplexVascularAppearingEndometrium, recommendSampling The following portions of the patient's history were reviewed and updated as appropriate: allergies, current medications, family history, medical history, social history, surgical history, and problem list. ASSESSMENT / PLAN Jeanette Nguyen Davian is a 32 y.o. who is seen in consultation with AUB and irregular endometrium on ultrasound, recommending endometrial sampling. Patient would prefer this be performed inthe operating room, surgery request sent for hysteroscopy with D&C to be performed on May 21. Also discuss fertility, pending results of the endometrial pathology, patient will plan to follow-up fertility. Labs as above other than pending A1c and prolactin. Also instructed patient to have partner collect a semen analysis. Patient would then need to follow-up for tubal assessment, if anovulatory cycles is the diagnosis, would be eligible for ovulation induction. Regarding her weight concerns and possible insulinoma, referral being sent for endocrinology with [facility]. Testing Fertility - Prolactin; Future - Hemoglobin A1c; Future Philip Bell M.D. 05/10/2023 10:05 AM DIANETIC COUNSELOR ETIC COUNSELOR documented in this encounter Plan of Treatment Scheduled Orders Name Type Priority Associated Diagnoses Orde r Schedule Prolactin Lab Routine Testing Fertility Expected: 05/10/2023 (Approximate), Expires: 08/07/2024 Hemoglobin A1c Lab Routine Testing Fertility Expected: 05/10/2023, Expires: 08/07/2024 documented as of this encounter Visit Diagnoses Diagnosis Testing Fertility- Primary documented in this encounter Care Teams Inspector Repairer Sandstone Relationship Specialty Start Date End Date Elsewhere, Pcp PCP - General Internal Medicine 03/17/21 documented as of this encounter
--- OUTSIDE RECORDS SUMMARY | 2023-05-22 17:36 | XMS_ITS | Clinical Summary ---
Author Name Unknown Organization [facility] Address [address] [place] [address] Care Team Providers Care Munitions Worker Name Role Phone Elsewhere, Pcp Primary Care Provider Unavailabl e Source Comments Patient records contain information from all sites at [facility]. For routine questions regarding patient records, call [phone] during business hours, M-F 8:00 AM - 5:00 PM Central Time. Record requests for emergency care only can be directed to [phone] at any time.[facility] Allergies Active Allergy Reactions Criticality Noted Date [...] Administrative Purpose Exam 06/05/2014 Overview: Compliant, stable [place] 5-325, 20 tab/month Adderall XR 25 mg, 30 tab/month Asthma 04/25/2006 Encounters Date Type Department Care Team Description 05/10/2023 9:45 AM MILK RUNNER Virtual Visit Department of Obstetrics and Gynecology in [place], [place] [address] [place] [phone] Philip Bell M.D. Testing Fertility (Primary Dx) Discharge Disposition: Home or Self Care 05/10/2023 Clinical Communication Department of Obstetrics and Gynecology in [place], [place] [address] [place] [address] Philip Bell M.D. 05/10/2023 Clinical Communication Department of Obstetrics and Gynecology in [place], [place] [address] [place] [phone] Philip Bell M.D. 05/10/2023 Clinical Communication Department of Obstetrics and Gynecology in [place], [place] [address] [place] [phone] Philip Bell M.D. 05/03/2023 10:30 AM MILK RUNNER Office Visit Department of Obstetrics and Gynecology in [place], [place] [address] [place] [phone] Kena Barnard APRN, C.N.P. Bleeding Dysfunctional Uterine Discharge Disposition: Home or Self Care 05/03/2023 10:00 AM MILK RUNNER Ancillary Procedure Department of Obstetrics and Gynecology in [place], [place] [address] [place] [phone] Kena Barnard APRN, C.N.P. Bleeding Dysfunctional Uterine Discharge Disposition: Home or Self Care 04/30/2023 9:40 AM MILK RUNNER - 04/30/2023 11:59 PM MILK RUNNER Hospital Encounter Department of Laboratory Medicine in [place], [place] [address] [facility] [place] [phone] Kena Barnard APRN, C.N.P. Bleeding Dysfunctional Uterine Discharge Disposition: Home or Self Care 04/30/2023 9:00 AM MILK RUNNER Office Visit Department of Obstetrics and Gynecology in [place], [place] [address] [place] [phone] Kena Barnard APRN, C.N.P. Bleeding Dysfunctional Uterine (Primary Dx); High Risk Human Papillomavirus Deoxyribonucleic Acid Test Positive Cervix; Polycystic Ovary Syndrome Discharge Disposition: Home or Self Care 03/01/2023 10:25 AM MILK RUNNER - 03/01/2023 11:42 AM MILK RUNNER Emergency [facility] [address] [place] [phone] Shortness Of Breath (Primary Dx) Discharge Disposition: Home or Self Care from Last 3 Months Immunizations Name Administration Dates Next Due 4vHPV (discontinued) 08/09/2012,12/12/2007 Tdap 08/09/2012 Family History Medical History Relation Name Comments Asthma Father Osmin Ho Unexplained Father Osmin Ho ADD Mother Geetha Nieto Varjeremy Anxiety disorder Mother Geetha Nieto Varjeremy Asthma Mother Geetha Nieto Varjeremy Breast cancer Mother Geetha Nieto Varjeremy Diabetes Mother Geetha Nieto Varpa Hypertension Mother Geetha Nieto Varjeremy Obesity Mother Geetha Nieto Varjeremy Psychiatric Mother Geetha Nieto Varpa Depression Sister Jyl Migraines Sister Jyl Relation Name Status Comments Father Osmin Ho Mother Geetha Brooks Sister Jyl Social History Tobacco Use Types Packs/Day Years Used Date Smoking Tobacco: Every Day Cigarettes 0.8 20 Smokeless Tobacco: Never Tobacco Cessation:Ready to Q uit: Not Asked; Counseling Given: Not Answered Alcohol Use Standard Drinks/Week Comments Not Currently 0 (1 standard drink = 0.6 oz pur e alcohol) Very very rarely [facility] Utilities Answer Date Recorded In the past 12 months has e [email or web address], gas, oil, or water [employer] threatened to shut off services in your [...] 10/08/2019 How often do you attend chur ch or evangelical services? 1 to 4 times per year 10/08/2019 Do you belong to any clubs o r organizations such as druze groups, unions, fraternal or athletic groups, or [...] medical care, and heating? Somewhat hard 10/08/2019 [facility] [place] of Occupat ional Health - Occupational Stress [...] your living situation today? I have a [facility] place to live 04/26/2023 Education Answer Date Recorded What is the highest level of school you have completed or the highest degree you have received? 12th grade 10/08/2019 Sex and Gender Information Value Date Recorded Sex Assigned at Female 04/26/2023 8:01 PM MILK RUNNER Gender Identity Female 06/24/2019 6:55 PM CDT Sexual Orientation Straight 10/08/2019 3: 02 PM CDT Last Filed Vital Signs Vital Sign Reading Time Taken Comments Blood Pressure 128/74 05/03/2023 10:21 AM MILK RUNNER Pulse 72 11/29/2021 8:45 AM CDT Temperature 36.9 ??C (98.4 ??F) 03/17/2021 4:00 PM CS T Respiratory Rate 16 11/29/2021 8:45 AM CDT Oxygen Saturation 97% 03/17/2021 7:15 PM MILK RUNNER Inhaled Oxygen Concentration - - Weight 110 kg (243 lb 0.9 oz) 05/03/2023 10:21 A M MILK RUNNER Height 172.5 cm (5' 7.91) 12/06/2011 2:28 PM CD T Body Mass Index - - Plan of Treatment Health Maintenance Due Date Last Done Comments Cervical Cancer Screening 1988 Depression Monitoring (PHQ-9) 1988 HIV Screening 1988 Hepatitis B Vaccines (1 of 3 - 3-dose series) 1988 Hepatitis C Screening 1988 COVID-19 Vaccine (#1) 03/11/1989 Pneumococcal vaccine (0-64 y ears) (1 of 2 - PCV) 1994 HPV Vaccines (3 - 3-dose series) 11/01/2012 08/10/19 13, 12/12/2007 Asthma Action Plan 10/15/2019 Asthma Control Test Questionnaire 10/15/2019 DTaP,Tdap,and Td Vaccines (2 - Td or Tdap) 08/09/2022 08/09/2012 Tobacco Cessation counseling 11/29/2022 11/29/2021 Influenza Vaccine (#1) 2023 7, 03/05/2007, 05/31/2006, Additional history exists Procedures Procedure Name Priority Date/Time Associated Diagnosis Comments US PELVIS TRANSVAGINAL RAD - Routine (most inpatients and all outpatients) 05/03/2023 10:45 AM MILK RUNNER Bleeding Dysfunctional Uterine FOLLICLE-STIM HORMONE (FSH), S Routine 04/30/2023 10:09 AM MILK RUNNER Bleeding Dysfunctional Uterine ESTRADIOL, RAPID, S Routine 04/30/2023 10:09 AM MILK RUNNER Bleeding Dysfunctional Uterine TESTOSTERONE, TOT AND FR, S Routine 04/10 10:09 AM MILK RUNNER Bleeding Dysfunctional Uterine DEHYDROEPIANDROSTERONE SULFATE (DHEA-S) LEVEL, S Routine 04/30/2023 10:09 AM MILK RUNNER Bleeding Dysfunctional Uterine from Last 3 Months Results * US Pelvis Transvaginal (05/03/2023 10:45 AM MILK RUNNER) Anatomical Region Laterality Modality Pelvis, Ultrasound RST LOS, Ultrasound ARZ LOS, Ultrasound FLA LOS N/A Ultrasound Impressions 05/03/2023 10:49 AM MILK RUNNER ComplexVascularAppearingEndometrium, recommendSampling Narrative 05/03/2023 10:49 AM MILK RUNNER EXAM: US PELVIS TRANSVAGINAL COMPARISON: TECHNIQUE: Transvaginal. [...] IMPRESSION: ComplexVascularAppearingEndometrium, recommendSampling Kena Barnard APRN, C.N.P. [facility] [place] OCEDURES * Estradiol, Rapid, Immunoassay - (for rapid assessment of ovarian status) (04/30/2023 10:09 AM MILK RUNNER) [facility] Estradiol Rapid, Immunoassay, S 36 pg/mL 04/30/2023 5:40 PM MILK RUNNER [facility] Comment: Biotin has been identified by the souvenir and novelty maker as a potential interfering substance. Higher concentrations [...] cycle. Blood (Blood, Venous) 04/30/2023 10:09 AM MILK RUNNER 04/30/2023 5:07 PM MILK RUNNER Kena Barnard APRN, C.N.P. LAB BLOOD ADD-ON [facility] [address] [place] [address], [facility] in [place] [address] [place] [address] * Dehydroepiandrosterone Sulfate (DHEA-S) (04/30/2023 10:09 AM MILK RUNNER) Dehydroepiandrosterone Sulfate, S 217 45 - 295 mcg/dL 05/01/2023 9:52 AM MILK RUNNER [facility] Blood (Blood, Venous) 04/30/2023 10:09 AM MILK RUNNER 05/01/2023 8:58 AM MILK RUNNER Shante Mike APRNN.P. LAB BLOOD ADD-ON [facility] [address] [place] [address] [facility] [place] [facility] [place] [place] [address] [place] [address] * (ABNORMAL) Testosterone, Total and Free (04/30/2023 10:09 AM MILK RUNNER) Testosterone, Free, S 1.29(H) <0.13 - 1.03 ng/dL 05/04/2023 1:35 PM [facility] Comment: ----ADDITIONAL INFORMATION---- This test was developed and its performance characteristics determined by [facility] in a manner consistent with CLIA requirements. This test has not been cleared or approved by the U.S. Food and Drug Administration. Testosterone, Total by Mass Spectrometry, Serum 40 8 - 60 ng/dL 05/02/2023 1:44 AM [facility] Comment: ----ADDITIONAL INFORMATION---- Testing performed by Liquid Chromatography-Tandem Mass Spectrometry (LC-MS/MS). This test was developed and its performance characteristics determined by [facility] in a manner consistent with CLIA requirements. This test has not been cleared or approved by the U.S. Food and Drug Administration. Blood (Blood, Venous) 04/30/2023 10:09 AM MILK RUNNER 05/01/2023 7:45 AM MILK RUNNER Kena J Akil VICE PRESIDENT BIOSTATISTICS, C.N.P. LAB BLOOD NON ADD-ON [facility] SUPPORT [facility] [address] [place] [address] [facility] [address] [place] [address] [place] [address] * Follicle-Stimulating Hormone (FSH), Serum (04/30/2023 10:09 AM MILK RUNNER) Follicle-Stim Hormone (FSH), S 7.1 IU/L 05/01/2023 1:07 PM MILK RUNNER [facility] Comment: ----REFERENCE VALUE---- Premenopausal: 2.9-14.6 IU/L (Follicular) 4.7-23.2 IU/L (Midcycle) 1.4-8.9 IU/L (Luteal) Postmenopausal: 16.0-157.0 IU/L Blood (Blood, Venous) 04/30/2023 10:09 AM MILK RUNNER 05/01/2023 12:18 PM MILK RUNNER Kena Barnard APRN, C.N.P. LAB BLOOD ADD-ON [facility] [address] [place] [address], [facility] [address] [place] [address] from Last 3 Months Care Teams Munitions Worker Relationship Specialty Start Date End Date Elsewhere, Pcp PCP - General Internal Medicine 03/17/21
--- OUTSIDE RECORDS SUMMARY | 2023-05-22 17:37 | XMS_ITS | Encounter Summary ---
Author Name Unknown Organization [facility] Address [address] [place] [address] Care Team Providers Care Maintenance And Custodian Supervisor Name Role Phone Elsewhere, Pcp Primary Care Provider Unavailabl e Reason for Visit * Reason Comments Dental Pain Encounter Details Date Type Department Care Team (Late st Contact Info) Description 01/10/2023 7:51 PM CDT - 01/10/2023 8:23 PM CDT Emergency [facility] [address] [place] [address] Pain Mouth (Primary Dx) Discharge Disposition: Home or Self Care Social History Tobacco Use Types Packs/Day Years Used Date Smoking Tobacco: Every Day Cigarettes 0.5 Smokeless Tobacco: Never Alcohol Use Standard Drinks/Week Comments Not Currently 0 (1 standard drink = 0.6 oz pur e alcohol) Humiliation, Afraid, Rape, and Kick questionnair e [...] often do you attend chur ch or restorationism services? 1 to 4 times per year 10/08/2019 Do you belong to any clubs o r organizations such as hinduism groups, unions, fraternal or athletic groups, or [...] medical care, and heating? Somewhat hard 10/08/2019 [facility] of Occupat ional Health - Occupational Stress [...] to strenuous exercise (like a brisk walk)? 6 days 10/08/2019 On average, how many minutes do you engage in exercise at this level? 100 min 10/08/2019 Hunger Vital Sign Answer Date Recorded Within the past 12 months, y ou worried that your food would run out before you got the money to buy more. Sometimes true Within the past 12 months, t he food you bought just didn't last and you didn't have money to get more. Sometimes true 04/2019 PRAPARE - Transportation Answer Date Re corded In the past 12 months, has l ack of transportation kept you from medical appointments or from getting medications? Yes 04/2019 In the past 12 months, has l ack of transportation kept you from meetings, work, or from getting things needed for daily living? Yes 10/08/2019 Nutrition Answer Date Recorded Nutrition: EVOO Fat Source Unknown 10/09 Nutrition: Servings of Fruits/Vegetables per Day Not on file 10/09/2022 Dental Answer Date Recorded Dental: Regular Dentist Unknown 10/10/19 Education Answer Date Recorded What is the highest level of school you have completed or the highest degree you have received? 12th grade 10/08/2019 Sex and Gender Information Value Date Recorded Sex Assigned at Female 04/26/2023 8:01 PM ENTRY LEVEL ACCOUNT EXECUTIVE Gender Identity Female 06/24/2019 6:55 PM CDT Sexual Orientation Straight 10/08/2019 3: 02 PM CDT documented as of this encounter Medications at Time of Discharge Medication Sig Dispensed Refills Start Date End Date albuterol (ACCUNEB) 2.5 mg /3 mL nebulizer solution Inhale 2.5 mg. 0 06/26/2019 albuterol inhaler Inhale 2 puffs. 0 08/02/2009 amphetamine-dextroamphe tamine (ADDERALL XR) 25 mg 24 hr capsule Take 25 mg by mouth daily. 0 10/06/2019 blood sugar diagnostic strips (Accu-Chek Guide test strips) Test 3 times per day as needed for symptoms of hypoglycemia. Accu Check 0 06/06/2022 EPINEPHrine 0.3 mg/0.3 mL injection syringe Inject 0.3 mg intramuscularly. 0 11/06/2018 famotidine (PEPCID) 20 mg tablet Take 20 mg by mouth. 0 07/16/2019 glucose 4 gram chewable tablet Take 1 tablet as needed for blood sugar less than 60 or if symptomatic. Ok to take up to 6 doses a day. 0 06/08/2022 ipratropium-albuteroL (DUONEB) 0.5-2.5 mg/3 mL nebulizer solution Inhale 3 mL. 0 04/03/2019 iron,carbonyl-vitamin C (VITRON-C) 65 mg iron- [address] tablet Take 1 tablet (65 mg of iron total) by mouth every other day. Do not crush or chew. 100 tablet 3 11/29/2021 LORazepam (ATIVAN) 0.5 mg tablet Take 0.5 mg by mouth. 0 06/04/2019 medroxyPROGESTERone (PROVERA) 10 mg tabletIndications:Nawaf rhagia Take 1 tablet (10 mg total) by mouth daily. Expect a period within 1 week of stopping medication. 14 tablet 11 11/08/2021 multivitamin capsule Take 1 tablet by mouth daily. 0 12/06/2011 norethindrone-ethinyl estradiol-iron (Loestrin Fe 04/28, 28-Day,) 1 mg-20 mcg (21)/75 mg (7) per tablet Take 1 tablet by mouth daily. 84 tablet 4 11/29/2021 nystatin (MYCOSTATIN) 100,000 unit/mL suspension Take 500,000 Units by mouth. 0 04/11/2021 oxyCODONE-acetaminophen (PERCOCET) 5-325 mg per tablet Take 1 tablet by mouth. 0 03/08/2021 polyethylene glycol (MIRALAX) 17 gram/dose oral powder Take 17 g by mouth. 0 11/06/2018 documented as of this encounter Plan of Treatment Not on file documented as of this encounter Visit Diagnoses Diagnosis Pain Mouth- Primary documented in this encounter Care Teams Maintenance And Custodian Supervisor Relationship Specialty Start Date End Date Elsewhere, Pcp PCP - General Internal Medicine 03/17/21 documented as of this encounter
--- OUTSIDE RECORDS SUMMARY | 2023-05-22 17:37 | XMS_ITS | Encounter Summary ---
Author Name Unknown Organization [facility] Address [address] [place] [address] Care Team Providers Care Sprayer Automatic Spray Machine Name Role Phone Elsewhere, Pcp Primary Care Provider Unavailabl e Reason for Visit * Reason Comments Shortness of Breath Encounter Details Date Type Department Care Team (Late st Contact Info) Description 03/01/2023 10:25 AM APARTMENT ASSISTANT MANAGER - 03/01/2023 11:42 AM APARTMENT ASSISTANT MANAGER Emergency [facility] [address] [place] [address] Shortness Of Breath (Primary Dx) Discharge Disposition: [...] often do you attend chur ch or mormon services? 1 to 4 times per year 10/08/2019 Do you belong to any clubs o r organizations such as taoist groups, unions, fraternal or athletic [...] medical care, and heating? Somewhat hard 10/08/2019 [facility] of Occupat ional Health - Occupational Stress [...] Sex Assigned at Female 04/26/2023 8:01 PM APARTMENT ASSISTANT MANAGER Gender Identity Female 06/24/2019 6:55 PM CDT [...] as of this encounter Visit Diagnoses Diagnosis Shortness Of Breath- Primary documented in this encounter Care Teams Sprayer Automatic Spray Machine Relationship Specialty Start Date End Date Elsewhere, Pcp PCP - General Internal Medicine 03/17/21 documented as of this encounter
--- OUTSIDE RECORDS SUMMARY | 2023-05-22 17:37 | XMS_ITS | Encounter Summary ---
Author Name Unknown Organization [facility] Address [address] [place] [address] Care Team Providers Care Auto Parker Name Role Phone Elsewhere, Pcp Primary Care Provider Unavailabl e Reason for Referral * Outpatient (Routine) - Closed Specialty Diagnoses / Procedures Referred By Contac t Referred To Contact Obstetrics and Gynecology Diagnoses Bleeding Dysfunctional Uterine Kena Barnard APRN, C.N.P. [address] [phone] [facility] Region Referral ID Status Reason Start Date Expiration Date Visits Re quested Visits Authorized [id number] Closed 04/30/2023 10/29/2024 1 1 Scheduling Instructions Please schedule at the same time as US with [facility] ICAL DIETETIC TECHNICIAN * Outpatient (Routine) - Closed Specialty Diagnoses / Procedures Referred By Contac t Referred To Contact Diagnoses Bleeding Dysfunctional Uterine Procedures US Pelvis Transvaginal Kena Barnard APRN, C.N.P. [address] [place] [address] [facility] Region Referral ID Status Reason Start Date Expiration Date Visits Re quested Visits Authorized [id number] Closed 04/30/2023 04/29/2024 1 1 ICAL DIETETIC TECHNICIAN Reason for Visit * Reason Comments Menorrhagia * Appointment Request (Routine) - Closed Specialty Diagnoses / Procedures Referred By Contac t Referred To Contact Obstetrics and Gynecology Referral ID Status Reason Start Date Expiration Date Visits Re quested Visits Authorized [id number] Closed 04/26/2023 04/25/2024 1 1 Encounter Details Date Type Department Care Team (Latest Contact Info) Description 04/30/2023 9:00 AM CLINICAL DIETETIC TECHNICIAN Office Visit Department of Obstetrics and Gynecology in [place], [place] [address] [place] [phone] Kena Barnard, CHERI, C.N.P. [address] [phone] Bleeding Dysfunctional Uterine (Primary Dx); High Risk Human Papillomavirus Deoxyribonucleic Acid Test Positive Cervix; Polycystic Ovary Syndrome Discharge Disposition: Home or Self Care Social History Tobacco Use Types Packs/Day Years Used Date Smoking Tobacco: Every Day Cigarettes 0.8 20 Smokeless Tobacco: Never Tobacco Cessation:Ready to Q uit: Not Asked; Counseling Given: Not Answered Alcohol Use Standard Drinks/Week Comments Not Currently 0 (1 standard drink = 0.6 oz pur e alcohol) Very very rarely [facility] Utilities Answer Date Recorded In the past 12 months has e [employer], gas, oil, or water [employer] threatened to shut off services in your [...] How often do you attend chur or jainism services? 1 to 4 times per year 10/08/2019 Do you belong to any clubs o r organizations such as christian groups, unions, fraternal or athletic [...] care, and heating? Somewhat hard 10/08/2019 [facility] of Occupat ional Health - Occupational Stress [...] your living situation today? [facility] 04/26/2023 Education Answer Date Recorded What is the highest level of school you have completed or the highest degree you have received? 12th grade 10/08/2019 Sex and Gender Information Value Date Recorded Sex Assigned at Female 04/26/2023 8:01 PM CLINICAL DIETETIC TECHNICIAN Gender Identity Female 06/24/2019 6:55 PM CDT Sexual Orientation Straight 10/08/2019 3: 02 PM CDT documented as of this encounter Last Filed Vital Signs Vital Sign Reading Time Taken Comments Blood Pressure 126/78 04/30/2023 8:55 AM CLINICAL DIETETIC TECHNICIAN Pulse - - Temperature - - Respiratory Rate - - Oxygen Saturation - - Inhaled Oxygen Concentration - - Weight 111 kg (243 lb 11.5 oz) 04/30/2023 8:55 A M CLINICAL DIETETIC TECHNICIAN Height - - Body Mass Index - - documented in this encounter Progress Notes * Kena Barnard, CHERI, C.N.P. - 04/30/2023 9:00 AM CST SUBJECTIVE Chief Complaint Patient presents with Menorrhagia HISTORY OF PRESENT ILLNESS Jeanette is a 32 y.o. . No LMP recorded. (Menstrual status: Irregular Periods). She presents with concerns surrounding Menorrhagia. She completed evaluation with her primary care provider. On 04/25/2023 she was diagnosed with iron-deficiency anemia. Lab work indicated an iron level of 20, ferritin of 4.6 and hemoglobin of 11.4. She did receive prescription for ferrous sulfate 325 mg to be taken twice daily. She just started that. She is taking it with vitamin-C. She notes menarche at approximately the age of 12 or 13. She has always had slightly irregular cycles, which worsened as she got older. She notes that there was a point in time where she lost some weight, and her cycles were regulated. 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 Since she has gained weight, her cycles have become more problematic. She notes irregular bleeding that has been problematic for about 2years, since March 2021. Initially, she thought that her heavy bleeding was due to her father's passing, and the stress related to that event, but when the symptoms continued, she became more concerned. She notes that for the last 2 years she has had ???nonstop?? bleeding. She will experience a1 day break from the bleeding on occasion. She describes flow that is very heavy, painful, and willsometimes gush for up to 4 days. She did try taking control pills in November of 2021 but indicated a problematic reaction. States that she felt like she was having a heart attack so she discontinued the pills abruptly. She does have history of polycystic ovarian syndrome. She does currently have symptoms of hirsutism. She notes that she shaves her chin on a daily basis. This causes her to feel very self-conscious. She does have history of ulcerative colitis and experienced a flare-up about 4 days ago. She has been dealing with ulcerative colitis since she was diagnosed approximately 25 years ago. She does have history of abnormal Pap smear. She had always had normal Pap smears until 2021, when she experienced a results indicating normal cytology and positive high-risk Human Papilloma Virus, negative type 16, 18 and 45. She had a follow-up Pap smear on 01/04/2023 that came back with normal cytology and negative for high-risk Human Papilloma Virus. Based on ASCCP guidelines, her next Pap with co-test should be obtained in December,. She was seen in the department of Obstetrics and Gynecology in [address] Kinney for these concerns. A pelvic ultrasound was completed 11/29/2021 which indicated endometrium measuring 10-11 mm that appeared homogeneous with some blood flow consistent with current menstruation or possible polyp. She admits that due to stress in her life at that time she did not complete follow-up. REVIEW OF SYSTEMS Constitutional: Positive for fatigue. Genitourinary: Positive for abnormal vaginal bleeding and menses change or abnormal. Neurological: Positive for light-headedness. The following systems were negative: Skin, Eyes, ENT, Respiratory, Cardiovascular, Gastrointestinal, Hematologic, Musculoskeletal, Psychiatric The patient's allergies, current medications, problem list, social history and family history were reviewed and updated as appropriate. OBJECTIVE BP 126/78 Wt 111 kg [facility] Last Pap Result Date: 01/04/2023 NILM/-HPV. Hx NILM/+HPV (-Type 16, 18/45) in 2021. Next Pap smear is due 2023. PHYSICAL EXAM General: She is a well-appearing female, in no acute distress. ASSESSMENT / PLAN #1 Bleeding Dysfunctional Uterine Overview: Will proceed with pelvic ultrasound. Previous pelvic ultrasound suggested possible endometrial polyp. If that is the case, we will proceed with surgical intervention to discuss hysteroscopy, polypectomy and dilation and curettage. Also has history of PCOS and is interested in blood work assessing hormonal status. I will plan to discuss these results with her when she returns for her ultrasound. Orders: - Dehydroepiandrosterone Sulfate (DHEA-S); Future; Expected date: 04/30/2023 - Testosterone, Total and Free; Future; Expected date: 04/30/2023 - Estradiol, Rapid, Immunoassay - (for rapid assessment of ovarian status); Future; Expected date: 04/30/2023 - Follicle-Stimulating Hormone (FSH), Serum; Future; Expected date: 04/30/2023 - US Pelvis Transvaginal; Future; Expected date: 04/30/2023 - Obstetrics and Gynecology office visit (clinic); Future; Expected date: 04/30/2023 #2 High Risk Human Papillomavirus Deoxyribonucleic Acid Test Positive Cervix Overview: 10/2021 NIL/HPV+, HPV 16/18 negative 12/2022 NIL/HPV negative. Plan: Pap/HPV due 12/2023. #3 Polycystic Ovary Syndrome Overview: Hirsutism noted. It has been many years since she has taken any treatment for her PCOS. Also has history of insulinoma, making metformin a poor choice of treatment. She does consume cigarettes, therefore making estrogen containing contraception a problematic option. Will reassess following her pelvic ultrasound and discuss options at that time. All questions have been answered and those present are in agreement with this plan. Kena Barnard APRN, C.N.P. Patient Education Ready to learn, no apparent learning barriers were identified; learning preferences include listening. Explained diagnosis and treatment plan; patient expressed understanding of the content. ICAL DIETETIC TECHNICIAN documented in this encounter Plan of Treatment Scheduled Referrals Name Type Priority Associated Diagnoses Orde r Schedule Obstetrics and Gynecology office visit (clinic) Outpatient Referral Routine Bleeding Dysfunctional Uterine Expected: 04/30/2023 (Approximate), Expires: 07/29/2024 documented as of this encounter Results * US Pelvis Transvaginal (05/03/2023 10:45 AM CLINICAL DIETETIC TECHNICIAN) Anatomical Region Laterality Modality Pelvis, Ultrasound RST LOS, Ultrasound ARZ LOS, Ultrasound FLA LOS N/A Ultrasound Impressions 05/03/2023 10:49 AM CLINICAL DIETETIC TECHNICIAN ComplexVascularAppearingEndometrium, recommendSampling Narrative 05/03/2023 10:49 AM CLINICAL DIETETIC TECHNICIAN EXAM: US PELVIS TRANSVAGINAL COMPARISON: TECHNIQUE: Transvaginal. [...] cc. Intraperitoneal Fluid: None. IMPRESSION: ComplexVascularAppearingEndometrium, recommendSampling Ced Mike APRNP. [facility] * Follicle-Stimulating Hormone (FSH), Serum (04/30/2023 10:09 AM CLINICAL DIETETIC TECHNICIAN) Follicle-Stim Hormone (FSH), S 7.1 IU/L 05/01/2023 1:07 PM CLINICAL DIETETIC TECHNICIAN DTL Comment: ----REFERENCE VALUE---- Premenopausal: 2.9-14.6 IU/L (Follicular) 4.7-23.2 IU/L (Midcycle) 1.4-8.9 IU/L (Luteal) Postmenopausal: 16.0-157.0 IU/L Blood (Blood, Venous) 04/30/2023 10:09 AM CLINICAL DIETETIC TECHNICIAN 05/01/2023 12:18 PM CLINICAL DIETETIC TECHNICIAN Shante Mike APRNN.P. LAB BLOOD ADD-ON [facility] [address] [facility] [address] [place] [address] * Estradiol, Rapid, Immunoassay - (for rapid assessment of ovarian status) (04/30/2023 10:09 AM CLINICAL DIETETIC TECHNICIAN) Estradiol Rapid, Immunoassay, S 36 pg/mL 04/30/2023 5:40 PM CLINICAL DIETETIC TECHNICIAN [facility] Comment: Biotin has been identified by the unix developer as a potential interfering substance. Higher concentrations [...] cycle. Blood (Blood, Venous) 04/30/2023 10:09 AM CLINICAL DIETETIC TECHNICIAN 04/30/2023 5:07 PM CLINICAL DIETETIC TECHNICIAN Kena Barnard APRN, C.N.P. LAB BLOOD ADD-ON [facility] [address] [place] [address], [place] [facility] [place] [address] [place] [address] * (ABNORMAL) Testosterone, Total and Free (04/30/2023 10:09 AM CLINICAL DIETETIC TECHNICIAN) Testosterone, Free, S 1.29(H) <0.13 - 1.03 ng/dL 05/04/2023 1:35 PM CLINICAL DIETETIC TECHNICIAN [facility] Comment: ----ADDITIONAL INFORMATION---- This test was developed and its performance characteristics determined by [facility] in a manner consistent with CLIA requirements. This test has not been cleared or approved by the U.S. Food and Drug Administration. Testosterone, Total by Mass Spectrometry, Serum 40 8 - 60 ng/dL 05/02/2023 1:44 AM [facility] Comment: ----ADDITIONAL INFORMATION---- Testing performed by Liquid Chromatography-Tandem Mass Spectrometry (LC-MS/MS). This test was developed and its performance characteristics determined by [facility] in a manner consistent with CLIA requirements. This test has not been cleared or approved by the U.S. Food and Drug Administration. Blood (Blood, Venous) 04/30/2023 10:09 AM CLINICAL DIETETIC TECHNICIAN 05/01/2023 7:45 AM CLINICAL DIETETIC TECHNICIAN Kena Barnard APRN, C.N.P. LAB BLOOD NON ADD-ON [facility] [address] [place] [address] [facility] [address] [place] [address] [place] [id number] * Dehydroepiandrosterone Sulfate (DHEA-S) (04/30/2023 10:09 AM CLINICAL DIETETIC TECHNICIAN) Dehydroepiandrosterone Sulfate, S 217 45 - 295 mcg/dL 05/01/2023 9:52 AM CLINICAL DIETETIC TECHNICIAN [facility] Blood (Blood, Venous) 04/30/2023 10:09 AM CLINICAL DIETETIC TECHNICIAN 05/01/2023 8:58 AM CLINICAL DIETETIC TECHNICIAN Shante Mike APRNNLeatha LAB BLOOD ADD-ON [facility] [address] [place] [address] [facility] [address] [place] [address] documented in this encounter Visit Diagnoses Diagnosis Bleeding Dysfunctional Uterine- Primary High Risk Human Papillomavirus Deoxyribonucleic Acid Test Positive Cervix Polycystic Ovary Syndrome Bleeding Dysfunctional Uterine documented in this encounter Care Teams Auto Parker Relationship Specialty Start Date End Date Elsewhere, Pcp PCP - General Internal Medicine 03/17/21 documented as of this encounter
--- OUTSIDE RECORDS SUMMARY | 2023-05-22 17:37 | XMS_ITS | Encounter Summary ---
Author Name Unknown Organization [facility] Address [address] [place] [address] Care Team Providers Care Human Anatomy Teacher Name Role Phone Elsewhere, Pcp Primary Care Provider Unavailabl e Encounter Details Date Type Department Care Team (Latest Contact Info) Description 04/30/2023 9:40 AM POOL NURSE - 04/30/2023 11:59 PM POOL NURSE Hospital Encounter Department of Laboratory Medicine in [place], [place] [address] [place] [phone] Kena Barnard, CHERI, C.N.P. [address] [phone] Bleeding Dysfunctional Uterine Discharge Disposition: Home or Self Care Social History Tobacco Use Types Packs/Day Years Used Date Smoking Tobacco: Every Day Cigarettes 0.8 20 Smokeless Tobacco: Never Alcohol Use Standard Drinks/Week Comments Not Currently 0 (1 standard drink = 0.6 oz pur e alcohol) Very very rarely [facility] Utilities Answer Date Recorded In the past 12 months has e [employer], gas, oil, or water [employer] threatened to shut off services in your [...] often do you attend chur ch or congregational services? 1 to 4 times per year 10/08/2019 Do you belong to any clubs o r organizations such as judaism groups, unions, fraternal or athletic [...] medical care, and heating? Somewhat hard 10/08/2019 [facility] [place] of Occupat ional Health - Occupational Stress [...] your living situation today? I have a [facility] place to live 04/26/2023 Education Answer Date Recorded What is the highest level of school you have completed or the highest degree you have received? 12th grade 10/08/2019 Sex and Gender Information Value Date Recorded Sex Assigned at Female 04/26/2023 8:01 PM POOL NURSE Gender Identity Female 06/24/2019 6:55 PM CDT Sexual Orientation Straight 10/08/2019 3: 02 PM CDT documented as of this encounter Medications at Time of Discharge Medication Sig Dispensed Refills Start Date End Date albuterol (ACCUNEB) 2.5 mg /3 mL nebulizer solution Inhale 2.5 mg. 0 06/26/2019 albuterol inhaler Inhale 2 puffs. 0 08/02/2009 amphetamine-dextroamph etamine (ADDERALL XR) 25 mg 24 hr capsule Take 25 mg by mouth daily. 0 10/06/2019 blood sugar diagnostic strips (Accu-Chek Guide test strips) Test 3 times per day as needed for symptoms of hypoglycemia. Accu Check 0 06/06/2022 EPINEPHrine 0.3 mg/0.3 mL injection syringe Inject 0.3 mg intramuscularly. 0 11/06/2018 famotidine (PEPCID) 20 mg tablet Take 20 mg by mouth. 0 07/16/2019 ferrous sulfate 325 mg (65 mg iron) DR tablet Take 325 mg by mouth. 0 glucose 4 gram chewable tablet Take 1 [...] mouth. 0 06/04/2019 medroxyPROGESTERone (PROVERA) 10 mg tabletIndications:Zara rrhagia Take 1 tablet (10 mg total) by mouth daily. Expect a period within 1 week of stopping medication. 14 tablet 11 11/08/2021 methylPREDNISolone (MEDROL DOSEPAK) 4 mg tablet Take by mouth as instructed per packaging. 0 04/06/2023 multivitamin capsule Take 1 tablet by mouth daily. 0 12/06/2011 norethindrone-ethinyl estradiol-iron (Loestrin Fe 04/28, 28-Day,) 1 mg-20 mcg (21)/75 mg (7) per tablet Take 1 tablet by mouth daily. 84 tablet 4 11/29/2021 nystatin (MYCOSTATIN) 100,000 unit/mL suspension Take 500,000 Units by mouth. 0 04/11/2021 oxyCODONE-acetaminophe n (PERCOCET) 5-325 mg per tablet Take 1 tablet by mouth. 0 03/08/2021 polyethylene glycol (MIRALAX) 17 gram/dose oral powder Take 17 g by mouth. 0 11/06/2018 documented as of this encounter Plan of Treatment Not on file documented as of this encounter Procedures Procedure Name Priority Date/Time Associated Diagnosis Comments DESI MICHELLE, S Routine 04/30/2023 10:09 AM POOL NURSE Bleeding Dysfunctional Uterine DEHYDROEPIANDROSTERONE SULFATE (DHEA-S) LEVEL, S Routine 04/30/2023 10:09 AM POOL NURSE Bleeding Dysfunctional Uterine TESTOSTERONE, TOT AND FR, S Routine 04/10 10:09 AM POOL NURSE Bleeding Dysfunctional Uterine FOLLICLE-STIM HORMONE (FSH), S Routine 04/30/2023 10:09 AM POOL NURSE Bleeding Dysfunctional Uterine documented in this encounter Results * Follicle-Stimulating Hormone (FSH), Serum (04/30/2023 10:09 AM POOL NURSE) Follicle-Stim Hormone (FSH), S 7.1 IU/L 05/01/2023 1:07 PM POOL NURSE DTL Comment: ----REFERENCE VALUE---- Premenopausal: 2.9-14.6 IU/L (Follicular) 4.7-23.2 IU/L (Midcycle) 1.4-8.9 IU/L (Luteal) Postmenopausal: 16.0-157.0 IU/L Blood (Blood, Venous) 04/30/2023 10:09 AM POOL NURSE 05/01/2023 12:18 PM POOL NURSE Kena Barnard APRN, C.N.P. LAB BLOOD ADD-ON [facility] [address] [place] [address], [facility] [address] [place] [address] * Estradiol, Rapid, Immunoassay - (for rapid assessment of ovarian status) (04/30/2023 10:09 AM POOL NURSE) Estradiol Rapid, Immunoassay, S 36 pg/mL 04/30/2023 5:40 PM POOL NURSE MKTO Comment: Biotin has been identified by the optical effects layout person as a potential interfering substance. Higher concentrations [...] cycle. Blood (Blood, Venous) 04/30/2023 10:09 AM POOL NURSE 04/30/2023 5:07 PM POOL NURSE Kena Barnard APRN, C.N.P. LAB BLOOD ADD-ON Performing Organization Address City/[facility]/ZIP Co de Phone Number [facility] [address] [place] [address], [facility] MKTO [facility] [place] [address] [place] [address] * (ABNORMAL) Testosterone, Total and Free (04/30/2023 10:09 AM POOL NURSE) Testosterone, Free, S 1.29(H) <0.13 - 1.03 ng/dL 05/04/2023 1:35 PM POOL NURSE [facility] Comment: ----ADDITIONAL INFORMATION---- This test was developed and its performance characteristics determined by [facility] in a manner consistent with CLIA requirements. This test has not been cleared or approved by the U.S. Food and Drug Administration. Testosterone, Total by Mass Spectrometry, Serum 40 8 - 60 ng/dL 05/02/2023 1:44 AM [facility] Comment: ----ADDITIONAL INFORMATION---- Testing performed by Liquid Chromatography-Tandem Mass Spectrometry (LC-MS/MS). This test was developed and its performance characteristics determined by [facility] in a manner consistent with CLIA requirements. This test has not been cleared or approved by the U.S. Food and Drug Administration. Blood (Blood, Venous) 04/30/2023 10:09 AM POOL NURSE 05/01/2023 7:45 AM POOL NURSE Kena Barnard APRN, C.N.P. LAB BLOOD NON ADD-ON [facility] [address] [place] [address] [facility] [address] [place] [address] [place] [address] * Dehydroepiandrosterone Sulfate (DHEA-S) (04/30/2023 10:09 AM POOL NURSE) Dehydroepiandrosterone Sulfate, S 217 45 - 295 mcg/dL 05/01/2023 9:52 AM POOL NURSE [facility] Blood (Blood, Venous) 04/30/2023 10:09 AM POOL NURSE 05/01/2023 8:58 AM POOL NURSE Kena Barnard APRN, C.N.P. LAB BLOOD ADD-ON [facility] [address] [place] [address] [facility] [address] [place] [address] documented in this encounter Visit Diagnoses Diagnosis Bleeding Dysfunctional Uterine documented in this encounter Care Teams Human Anatomy Teacher Relationship Specialty Start Date End Date Elsewhere, Pcp PCP - General Internal Medicine 03/17/21 documented as of this encounter
--- OUTSIDE RECORDS SUMMARY | 2023-05-22 17:37 | XMS_ITS | Encounter Summary ---
Author Name Unknown Organization [facility] Address [address] [place] [address] Care Team Providers Care Public Improvement Inspector Name Role Phone Elsewhere, Pcp Primary Care Provider Unavailabl e Reason for Visit * Reason Comments Follow-up * Outpatient (Routine) - Closed Specialty Diagnoses / Procedures Referred By Daren t Referred To Contact Obstetrics and Gynecology Diagnoses Bleeding Dysfunctional Uterine Kena Barnard APRN, C.N.P. [address] [place] [address] [facility] Region Referral ID Status Reason Start Date Expiration Date Visits Re quested Visits Authorized [id number] Closed 04/30/2023 10/29/2024 1 1 Encounter Details Date Type Department Care Team (Latest Contact Info) Description 05/03/2023 10:30 AM TRACK WALKER Office Visit Department of Obstetrics and Gynecology in [address] [phone] Kena Barnard APRN, C.N.P. [address] [place] [address] Bleeding Dysfunctional Uterine Discharge Disposition: Home or Self Care Social History Tobacco Use Types Packs/Day Years Used Date Smoking Tobacco: Every Day Cigarettes 0.8 20 Smokeless Tobacco: Never Alcohol Use Standard Drinks/Week Comments Not Currently 0 (1 standard drink = 0.6 oz pur e alcohol) Very very rarely [facility] Utilities Answer Date Recorded In the past 12 months has e [employer], gas, oil, or water [employer] threatened to shut off services in your [...] often do you attend chur ch or sabianist services? 1 to 4 times per year 10/08/2019 Do you belong to any clubs o r organizations such as anglican groups, unions, fraternal or athletic groups, or [...] medical care, and heating? Somewhat hard 10/08/2019 [facility] [place] of Occupat ional Health - Occupational Stress [...] your living situation today? I have a [facility] place to live 04/26/2023 Education Answer Date Recorded What is the highest level of school you have completed or the highest degree you have received? 12th grade 10/08/2019 Sex and Gender Information Value Date Recorded Sex Assigned at Female 04/26/2023 8:01 PM TRACK WALKER Gender Identity Female 06/24/2019 6:55 PM CDT Sexual Orientation Straight 10/08/2019 3: 02 PM CDT documented as of this encounter Last Filed Vital Signs Vital Sign Reading Time Taken Comments Blood Pressure 128/74 05/03/2023 10:21 AM TRACK WALKER Pulse - - Temperature - - Respiratory Rate - - Oxygen Saturation - - Inhaled Oxygen Concentration - - Weight 110 kg (243 lb 0.9 oz) 05/03/2023 10:21 A M TRACK WALKER Height - - Body Mass Index - - documented in this encounter Progress Notes * Kena Barnard APRN, C.N.P. - 05/03/2023 10:30 AM CST SUBJECTIVE Chief Complaint Patient presents with Follow-up HISTORY OF PRESENT ILLNESS Jeanette is a 32 y.o. . No LMP recorded. (Menstrual status: Irregular Periods). She presents with concerns surrounding Follow-up. She completed evaluation with her primary care [...] ulcerative colitis and experienced a flare-up about a week ago. She has been dealing with ulcerative [...] did not complete follow-up. REVIEW OF SYSTEMS Genitourinary: Positive for abnormal vaginal bleeding and menses change or abnormal. The following systems were negative: Constitutional, Skin, Eyes, ENT, Respiratory, Cardiovascular, Gastrointestinal, Hematologic, Musculoskeletal, Neurological, Psychiatric The patient's allergies, current medications, problem list, social history and family history were reviewed and updated as appropriate. OBJECTIVE BP 128/74 Wt 110 kg PREVENTATIVE HEALTH Last Pap Result Date: 01/04/2023 NILM/-HPV. Hx NILM/+HPV (-Type 16, 18/45) in 2021. Next Pap smear is due 2023. PHYSICAL EXAM General: She is a well-appearing female, in no acute distress. DIAGNOSTICS Labs: 04/30/2023: FSH, estradiol, total testosterone and DHEA-S were within normal limits. Cycle day unknown due to dysfunctional uterine bleeding. Transvaginal pelvic ultrasound: 05/03/2023: Endometrial thickness 18.74 mm and heterogeneous. Please see report for additional results. No other significant abnormalities noted. ASSESSMENT / PLAN #1 Bleeding Dysfunctional Uterine Overview: Will proceed with surgical consultation for consideration of hysteroscopic dilation and curettage and possible polypectomy. Orders: - Obstetrics and Gynecology office visit (clinic) - Obstetrics and Gynecology office visit (clinic); Future; Expected date: 05/03/2023 All questions have been answered and those present are in agreement with this plan. Kena Barnard APRN, C.N.P. Patient Education Ready to learn, no apparent learning barriers were identified; learning preferences include listening. Explained diagnosis and treatment plan; patient expressed understanding of the content. K WALKER documented in this encounter Plan of Treatment Not on file documented as of this encounter Visit Diagnoses Diagnosis Bleeding Dysfunctional Uterine documented in this encounter Care Teams Public Improvement Inspector Relationship Specialty Start Date End Date Elsewhere, Pcp PCP - General Internal Medicine 03/17/21 documented as of this encounter
--- OUTSIDE RECORDS SUMMARY | 2023-05-22 17:37 | XMS_ITS | Encounter Summary ---
Author Name Unknown Organization [facility] Address [address] [place] [address] Care Team Providers Care Technical Manager Chemical Plant Name Role Phone Elsewhere, Pcp Primary Care Provider Unavailabl e Reason for Visit * Outpatient (Routine) - Closed Specialty Diagnoses / Procedures Referred By Contac t Referred To Contact Diagnoses Bleeding Dysfunctional Uterine Procedures US Pelvis Transvaginal Kena Barnard APRN, C.N.P. [address] [place] [address] [facility] Region Referral ID Status Reason Start Date Expiration Date Visits Re quested Visits Authorized [id number] Closed 04/30/2023 04/29/2024 1 1 Encounter Details Date Type Department Care Team (Latest Contact Info) Description 05/03/2023 10:00 AM BARREL LOADER Ancillary Procedure Department of Obstetrics and Gynecology in [address] [phone] Kena Barnard APRN, C.N.P. [address] [place] [address] Bleeding Dysfunctional Uterine Discharge Disposition: Home or Self Care Social History Tobacco Use Types Packs/Day Years Used Date Smoking Tobacco: Every Day Cigarettes 0.8 20 Smokeless Tobacco: Never Alcohol Use Standard Drinks/Week Comments Not Currently 0 (1 standard drink = 0.6 oz pur e alcohol) Very very rarely [facility] Utilities Answer Date Recorded In the past [address] [facility] [employer], oil, or [employer] threatened to shut off services in your [...] medical care, and heating? Somewhat hard 10/08/2019 [facility] [place] of Occupat ional Health - Occupational Stress [...] your living situation today? I have a [facility] place to live 04/26/2023 Education Answer Date Recorded What is the highest level of school you have completed or the highest degree you have received? 12th grade 10/08/2019 Sex and Gender Information Value Date Recorded Sex Assigned at Female 04/26/2023 8:01 PM BARREL LOADER Gender Identity Female 06/24/2019 6:55 PM CDT Sexual Orientation Straight 10/08/2019 3: 02 PM CDT documented as of this encounter Plan of Treatment Not on file documented as of this encounter Procedures Procedure Name Priority Date/Time Associated Diagnosis Comments US PELVIS TRANSVAGINAL RAD - Routine (most inpatients and all outpatients) 05/03/2023 10:45 AM BARREL LOADER Bleeding Dysfunctional Uterine documented in this encounter Results * US Pelvis Transvaginal (05/03/2023 10:45 AM BARREL LOADER) Anatomical Region Laterality Modality Pelvis, Ultrasound RST LOS, Ultrasound ARZ LOS, Ultrasound FLA LOS N/A Ultrasound Impressions 05/03/2023 10:49 AM BARREL LOADER ComplexVascularAppearingEndometrium, recommendSampling Narrative 05/03/2023 10:49 AM BARREL LOADER EXAM: US PELVIS TRANSVAGINAL COMPARISON: TECHNIQUE: Transvaginal. [...] Fluid: None. IMPRESSION: ComplexVascularAppearingEndometrium, recommendSampling Kena Barnard APRN C.NKentonPKenton IMG US [place] OCEDURES documented in this encounter Visit Diagnoses Diagnosis Bleeding Dysfunctional Uterine documented in this encounter Care Teams Technical Manager Chemical Plant Relationship Specialty Start Date End Date Elsewhere, Pcp PCP - General Internal Medicine 03/17/21 documented as of this encounter
[2023-05-22 22:22] LABS: Strep A DNA Probe* NOT DETECTED (Not Detectd)
== END 2023-05-22 17:35 | disposition home or self-care (01) ==
LOC: KYNREF 17:35
PROVIDERS: PCP Nurse Practitioner Family; Visit Provider Nurse Practitioner Family
DX: J02.9 Acute pharyngitis, unspecified (principal)
CPT/HCPCS: 87651